=== PATIENT | male | born 1925 | race Caucasian/White ===

== ENCOUNTER 2016-06-07 10:05 | Emergency (ER) | payer OTHER ==
[~2016-06-07] VITALS: Ht 165.1 cm; Wt 50.3 kg
[~2016-06-07 10:05] MED LIST: ASPEC81 PO; CZR50 PO; FLM4 PO; GLCSR500 PO; INSDGI SC; LEVO-366 PO; MCR5 PO; METO50TA7 PO; OMEP40CA PO; ONDA8TAB6 PO
[2016-06-07 10:21] VITALS: TEMP 36.4; Ht 165.1 cm; Wt 50.3 kg
--- NOTE | 2016-06-07 11:13 | DIAGNOSTIC IMAGING REPORT ---
TWO VIEW CHEST CLINICAL HISTORY: Cough and rhonchi. FINDINGS: PA and lateral chest radiographs are compared to study dated 05/18/2010 and correlated with abdominal CT dated 05/18/2010. The heart is top normal in size. There is atherosclerotic calcification of the thoracic aorta. Changes of chronic interstitial lung disease have significantly progressed as compared to 05/18/2010 examination. There is diffuse subpleural reticulation as well as subpleural opacities. Foci of honeycombing are suspected in the lower lobes. Superimposed emphysema is suspected. More focal airspace consolidation is questioned at the left lung base. A small left pleural effusion is identified. There is no pneumothorax. The skeletal structures are osteopenic. The bony thorax appears intact. IMPRESSION: 1. Progressive interstitial lung disease as compared to the05/18/2010 examination and detailed above. There may also be superimposed emphysema. Pulmonology follow-up is recommended. 2. Superimposed airspace consolidation is seen at the left lung base and there is a small left pleural effusion. The appearance is suspicious for pneumonia. Radiographic follow-up to resolution is recommended. Electronically signed by: Isaac Scott M.D. 06/07/2016 11:11 AM Dictated Date/Time: 06/07/2016 11:08 AM
[2016-06-07] MEDS ORDERED: PROAIR HFA PO (11:18)
--- NOTE | 2016-06-07 11:22 | EMERGENCY ROOM VISIT NOTE ---
History Report prepared by Lexi: Luzma Leblanc Under the Supervision of: Dr. Franco Castro D.O. First contact with patient: 10:33 Chief Complaint: COUGH Stated Complaint: COUGH/SOB Nursing Triage Summary: Relates that his phlegm is clear and like "foam". History of Present Illness The patient is an 89 year old male who presents to the Emergency Room with complaints of persistent shortness of breath that began several weeks ago. The patient states that two weeks ago he developed a persistent cough. He states that he had a chest x-ray, but states that it came back normal. The patient states that his cough has improved, but his shortness of breath has persisted. He describes his cough as a productive cough. The patient additionally associates fatigue with his symptoms today. The patient's daughter notes that the patient has complained of right abdominal pain. The patient denies any swelling to his lower extremities. The patient's daughter notes that the patient has had a few cardiac catheterizations, but states that they all have been normal. She denies the patient having any previous NV. Source of History: patient, family (daughter) Onset: several weeks ago Position: other (global) Quality: other (shortness of breath) Timing: other (persistent) Associated Symptoms: + abdominal pain, + cough, + fatigue Review of Systems See HPI for pertinent positives & negatives. A total of 10 systems reviewed and were otherwise negative. Past Medical & Surgical Medical Problems: (1) Diabetes (2) Heart disease Family History Gallbladder disease Social History Smoking Status: Never Smoker Marital Status: Occupation Status: retired Current/Historical Medications Scheduled Aspirin Enteric Coated (Ecotrin Or Generic *), 81 MG PO DAILY Atorvastatin (Lipitor), 10 MG PO Q2D Diltiazem Hcl (Diltiazem Hcl), 180 MG PO DAILY Glipizide (Glucotrol), 5 MG PO BID Insulin Glargine (Lantus), 12 UNITS SC BID Levofloxacin (Levaquin), 1 TAB PO DAILY Levothyroxine Sodium (Synthroid), 50 MCG PO QAM Metformin Hcl Ext Rel (Glucophage Ext Rel *), 1,000 MG PO BID Mirtazapine (Mirtazapine), 30 MG PO HS Multivitamin (Multivitamin), 1 TAB PO DAILY Tamsulosin Hcl (Flomax *), 0.4 MG PO DAILY Scheduled PRN [Proair Hfa], 2 PUFF PO Q4 PRN for SOB/Wheezing Allergies Coded Allergies: No Known Allergies (Unverified , 06/07/16) Physical Exam Vital Signs Date Time Temp Pulse Resp B/P Pulse Ox O2 Delivery O2 Flow Rate FiO2 06/07/16 10:33 107 06/07/16 10:31 Room Air 06/07/16 10:21 36.4 101 24 120/71 96 Room Air Physical Exam CONSTITUTIONAL/VITAL SIGNS: Reviewed / noted above. GENERAL: Non-toxic in appearance. INTEGUMENTARY: Warm, dry, and [place]. HEAD: Normocephalic. EYES: without scleral icterus or trauma. ENT/OROPHARYNX: clear and moist. LYMPHADENOPATHY/NECK: Is supple without lymphadenopathy or meningismus. RESPIRATORY: Right lower lung reveals rhonchi, no increased work of breathing or respiratory distress. CARDIOVASCULAR: Regular rate and rhythm. GI/ABDOMEN: Soft and nontender. No organomegaly or pulsatile mass. No rebound or guarding. Normal bowel sounds. EXTREMITIES: Warm and well perfused. BACK: No CVA tenderness. NEUROLOGICAL: Intact without focal deficits. PSYCHIATRIC: normal affect. MUSCULOSKELETAL: Normally developed with good muscle tone. Medical Decision & Procedures ER Provider Diagnostic Interpretation: X ray results and stated below per my interpretation and radiology interpretation. TWO VIEW CHEST CLINICAL HISTORY: Cough and rhonchi. FINDINGS: PA and lateral chest radiographs are compared to study dated 05/18/2010 and correlated with abdominal CT dated 05/18/2010. The heart is top normal in size. There is atherosclerotic calcification of the thoracic aorta. Changes of chronic interstitial lung disease have significantly progressed as compared to 05/18/2010 examination. There is diffuse subpleural reticulation as well as subpleural opacities. Foci of honeycombing are suspected in the lower lobes. Superimposed emphysema is suspected. More focal airspace consolidation is questioned at the left lung base. A small left pleural effusion is identified. There is no pneumothorax. The skeletal structures are osteopenic. The bony thorax appears intact. IMPRESSION: 1. Progressive interstitial lung disease as compared to the05/18/2010 examination and detailed above. There may also be superimposed emphysema. Pulmonology follow-up is recommended. 2. Superimposed airspace consolidation is seen at the left lung base and there is a small left pleural effusion. The appearance is suspicious for pneumonia. Radiographic follow-up to resolution is recommended. Electronically signed by: Isaac Scott M.D. 06/07/2016 11:11 AM Dictated Date/Time: 06/07/2016 11:08 AM ECG Indication: SOB/dyspnea Rate (beats per minute): 112 Rhythm: sinus tachycardia Findings: PAC, no acute ischemic change ED Course 1033: Previous medical records were reviewed. The patient was evaluated in room A9B. A complete history and physical examination was performed. 1126: Ordered Levofloxacin 500 mg PO. 1133: I reevaluated the patient and he is resting comfortably. I discussed the exam findings with him and I discussed the treatment plan. He verbalized complete understanding and agreement. He is ready to go home. Medical Decision the differential was considered includes acute myocardial infarction, acute coronary syndrome, myocarditis, pericarditis, pericardial effusions /tamponad, esophageal perforation, pulmonary embolism, pneumonia, pneumothorax, cardiomyopathy, congestive heart, anemia , COPD/asthma exacerbation. This is an 89-year-old male who presents to the ED with a chief complaint of a cough. The patient has also developed some shortness of breath. He states that he has been coughing for at least a week. He was told that he had a normal chest x-ray last week. He also reports some fatigue. His coughing seemed to be better today but he is brought in for evaluation of his fatigue and shortness of breath. He is in no respiratory distress on clinical exam. He has no increased work of breathing. His vital signs are stable. He is afebrile and not hypoxic. Exam reveals rhonchi in the right base slightly worse than left. Chest x-ray suggests a possible pneumonia. The patient was started on Levaquin. He was felt to be stable for discharge. Impression Primary Impression: Pneumonia Scribe Attestation The scribe's documentation has been prepared under my direction and personally reviewed by me in its entirety. I confirm that the note above accurately reflects all work, treatment, procedures, and medical decision making performed by me. Departure Information Dispostion Home / Self-Care Prescriptions Levofloxacin (LEVAQUIN) 500 Mg Tab 1 TAB PO DAILY for 10 Days, #10 TAB Prov: Franco Castro D.O. 06/07/16 Referrals Duarte Hannah M.D. (PCP) Forms HOME CARE DOCUMENTATION FORM, IMPORTANT VISIT INFORMATION Patient Instructions ED Pneumonia, [facility] Additional Instructions Levaquin as prescribed. Follow-up with your doctor for further care and evaluation in 1-7 days. Return to the emergency department for worsening or new symptoms or any concerns. You have been examined and treated today on an emergency basis only. This is not a substitute for, or an effort to provide, complete comprehensive medical care. It is impossible to recognize and treat all injuries or illnesses in a single emergency department visit. It is therefore important that you follow up closely with your doctor. Call as soon as possible for an appointment.
[2016-06-07] MEDS ORDERED: LEVOFLOXACIN 250 MG TAB PO STA (11:26)
[2016-06-07] MEDS ORDERED: LEVO1TAB34 PO (11:30)
[2016-06-07 12:08] VITALS: BP 134/69; PULSE 96; O2SAT 100
[2016-08-18] MEDS ORDERED: NVLGI/PEN SC (12:38)
[2016-08-18] MEDS ORDERED: INSDGIPEN SC (12:38)
[2016-08-18] MEDS ORDERED: LOSA1TAB PO (12:38)
[2016-08-18] MEDS ORDERED: PRED10TA PO (12:38)
[2016-08-18] MEDS ORDERED: PRLSR20 PO (12:59)
[2016-08-18] MEDS ORDERED: BENZ100C7 PO (13:01)
[2016-09-17] MEDS ORDERED: MULT-506 PO (08:32)
[2016-09-17] MEDS ORDERED: ATOR10TA88 PO (08:32)
[2016-09-17] MEDS ORDERED: SYN50 PO (11:18)
[2016-09-17] MEDS ORDERED: GLIP5TAB3 PO (11:18)
[2016-09-17] MEDS ORDERED: RMR15 PO (11:18)
[2016-09-17] MEDS ORDERED: DILT180C70 PO (11:19)
[2016-09-17] MEDS ORDERED: TAMS0.4C38 PO (11:33)
[2016-09-17] MEDS ORDERED: METF1TAB53 PO (11:33)
[2016-09-17] MEDS ORDERED: ASPI81TA28 PO (11:33)
[2016-09-20] MEDS ORDERED: INSDGIPEN SC (10:50)
[2016-09-20] MEDS ORDERED: NVLGIPEN INJ (10:50)
== END 2016-06-07 12:17 | disposition home or self-care (01) ==
LOC: C.EDB 10:06 → C.EDA 12:17
DX: J18.9 Pneumonia, unspecified organism (principal); E11.9 Type 2 diabetes mellitus without complications; I51.9 Heart disease, unspecified; Z79.82 Long term (current) use of aspirin; Z79.4 Long term (current) use of insulin; Z79.899 Other long term (current) drug therapy; Z82.49 Family history of ischemic heart disease and other diseases of the circulatory system

== ENCOUNTER 2016-08-13 10:53 | Inpatient (IN) | payer OTHER ==
[~2016-08-13] VITALS: Ht 165.1 cm; Wt 46.4 kg
[~2016-08-13 10:53] MED LIST changes: -CZR50 PO; -LEVO-366 PO; -MCR5 PO; -METO50TA7 PO; -OMEP40CA PO; -ONDA8TAB6 PO; +PROAIR HFA PO
[2016-08-13] MEDS ORDERED: INSDGIPEN SC (11:33)
--- NOTE | 2016-08-13 11:36 | DIAGNOSTIC IMAGING REPORT ---
CHEST ONE VIEW PORTABLE CLINICAL HISTORY: Shortness of breath. COMPARISON STUDY: Chest radiograph June 07, 2016. FINDINGS: No pneumothorax or pleural effusion is present. There is diffuse interstitial thickening. This is either stable or improved since exam of June 07, 2016. No superimposed consolidation is identified. Cardiomediastinal silhouette is normal. Prominent reticulonodular interstitial thickening within the left upper lobe is noted. IMPRESSION: Diffuse interstitial thickening, as shown on exam of June 07, 2016. This is consistent with interstitial lung disease and suggests pulmonary fibrosis with suspected honeycombing. Electronically signed by: Dayton Zavala M.D. 08/13/2016 11:35 AM Dictated Date/Time: 08/13/2016 11:31 AM
[2016-08-13 11:38] LABS: HEMATOCRIT 34.5 % (42-52); MEAN CELL VOLUME 90.1 fL (80-100); MEAN CORPUSCULAR HEMOGLOBIN 30.8 pg (25-34); MEAN CORPUSCULAR HGB CONC 34.2 g/dl (32-36); PLATELET COUNT 150 K/uL (130-400); RED BLOOD COUNT 3.83 M/uL (4.7-6.1); WHITE BLOOD COUNT 6.46 K/uL (4.8-10.8)
[2016-08-13 11:38] LABS: ISTAT CREATININE 1.3 mg/dl (0.6-1.3); ISTAT HEMOGLOBIN 12.2 g/dl (14.0-18.0); ISTAT IONIZED CALCIUM 1.12 mmol/l (1.12-1.32)
[2016-08-13] MEDS ORDERED: OPTIRAY 320 IV PRN (11:45)
[2016-08-13 11:55] LABS: COMPLETE YES; IG% 0.3 %; LYMPH % 8.2 %; LYMPH ABS # 0.53 K/uL (1.2-3.4); MONO % 6.8 %; NEUT % 84.7 %
[2016-08-13 11:57] LABS: BUN/CREATININE RATIO 15.9 (10-20); CALCIUM 8.8 mg/dl (8.5-10.1); CREATININE 1.5 mg/dl (0.60-1.40); POTASSIUM 4.5 mmol/L (3.5-5.1)
[2016-08-13 12:02] LABS: INR 1.1 (0.9-1.1); PARTIAL THROMBOPLASTIN RATIO 1.2; PROTHROMBIN TIME (PATIENT) 11.3 SECONDS (9.0-12.0)
--- NOTE | 2016-08-13 12:04 | DIAGNOSTIC IMAGING REPORT ---
CHEST CTA for PULMONARY ARTERIES CT DOSE: 232.46 mGycm HISTORY: Chest pain dyspnea TECHNIQUE: Multiaxial CT images of the chest were performed following the intravenous administration of contrast to evaluate the pulmonary arteries. Maximal intensity projection images were also obtained. COMPARISON STUDY: None. FINDINGS: Diffuse parenchymal fibrotic change throughout both hemithoraces. Underlying considerable emphysematous and bronchiectatic change. Lungs are noted throughout both hemithoraces. Evaluation of the pulmonary vasculature is problematic due to patient motion. There is no evidence for major central embolus. Moderate atherosclerotic change again change and ectasia thoracic aorta. Third order vessels are not well evaluated on this exam. IMPRESSION: 1. Limited study due to patient restaurant somatic motion. 2. Diffuse parenchymal fibrosis and interstitial change with underlying Baseline emphysematous change. 3. No evidence for major central embolus. 4. Nondiagnostic evaluation of the third order pulmonary arterial vessels Electronically signed by: Bassam Diaz M.D. 08/13/2016 12:03 PM Dictated Date/Time: 08/13/2016 12:00 PM
[2016-08-13] MEDS ORDERED: ONDANSETRON INJ 2 MG/ML 2 ML VIAL IV PRN (13:45)
[2016-08-13] MEDS ORDERED: ACETAMINOPHEN 325 MG TAB PO PRN (13:45)
[2016-08-13 13:58] VITALS: BP 116/69; PULSE 93; TEMP 37.2; O2SAT 98; BMI 17.6
[2016-08-13] MEDS ORDERED: GLUCOSE 10 TABS/TUBE PO PRN (14:00)
[2016-08-13] MEDS ORDERED: LEVALBUTEROL/IPRATROPIUM NEB INH PRN (14:00)
[2016-08-13] MEDS ORDERED: LOSA1TAB38 PO (14:00)
[2016-08-13] MEDS ORDERED: GLUCOSE 40% GEL 15 GM TUBE PO PRN (14:00)
[2016-08-13] MEDS ORDERED: DEXTROSE 50% 50 ML SYR IV PRN (14:00)
[2016-08-13] MEDS ORDERED: GLUCAGON FOR INJ 1 MG VIAL SQ PRN (14:00)
--- NOTE | 2016-08-13 14:09 | Progress Note ---
Progress Note Date of Service Aug 13, 2016. Progress Note ATTENDING ADDENDUM care coordinated with VALENTINA David please refer to her notes for full details, I agree with her notes patient seen and examined, records reviewed by myself as well on exam, patient seen resting laying in bed, comfortable, smiling states he feels improved compared to when he arrived reports ~ 1 week history of worsening shortness of breath, cough with white sputum and chills worsening anorexia also has palpitations at home with no chest pain, dizziness, nausea, diaphoresis no other symptoms VS noted and reviewed oriented x 3 , not in distress, speaks in sentences with no effort nor accessory muscle use normal rate, regular rhythm, no murmurs (+) mild crackles at the bases, no wheezing, good air entry non distended, soft, nontender no bipedal edema, erythema, warmth no neuro deficits WBC 6.4 Na 130 Crea 1.5 ASSESSMENT/PLAN> 89 year old male with history of Interstitial Lung Disease, [place] Exposure, history of CAD and Paroxysmal A fib, DM on Insulin, and other problems noted below presenting with increasing shortness of breath and cough x 1 week. ACUTE HYPOXIC RESPIRATORY FAILURE POSSIBLE ACUTE BRONCHITIS HISTORY OF INTERSTITIAL LUNG DISEASE - usually follows with [facility] last visit 08/06/16, CXR showing progression of ILD - worsening dyspnea with minimal exertion and cough over the past week - noted to be hypoxic at the ER, 86% on room air improved with 2 L O2 on nasal cannula - no wheeze on exam - CT chest: ILD possible Pulmonary Fibrosis, Emphysema no signs of pneumonia, fluid - check baseline ABG Nebs q6h empiric Doxycycline Pulmonary consult HYPONATREMIA likely Hypovolemic from Poor oral intake may have SIADH component as well from underlying respiratory condition - baseline Na 140 - check Plasma Osm, Urine Na - appears clinically dry - IV NSS at 75cc/hr - PRP every 4 hours other diagnoses and plan of care as per VALENTINA David's notes Preston Patel MD
--- NOTE | 2016-08-13 14:41 | History and Physical ---
History & Physical Date & Time of Service: Aug 13, 2016 at 14:06 Chief Complaint: Weak, Cough, Not Eating Primary Care Physician: Duarte Hannah M.D. History of Present Illness Source: patient, family (son and daughter in law at bedside), clinic records This is an 89 year old male with PMH of interstitial lung disease, paroxysmal Afib, CAD, HTN, DM type 2, and other problems listed below who presents to the ED with increasing SOB. Patient was treated as outpatient for LLL PNA with Levaquin in May 2016 and was feeling back to baseline. Repeat CXR as outpatient on 08/06/16 showed ILD progressive from 2011. Then 3 days ago developed worsening of cough and dyspnea from baseline. Dyspnea occurs with minimal exertion i.e. getting dressed. At baseline was [place] ambulating across the room. No dyspnea at rest. Cough is productive of thick clear sputum. He reports associated chills, rhinorrhea, lightheadedness with standing, generalized weakness. Ambulates unassisted. He reports posttussive vomiting x 1 a few days ago. Eating minimal food due to poor appetite for 1+ years. Has lost weight. Trying to drink a lot of water. He denies fever, sweats, orthopnea, chest pain, palpitations, syncope, abdominal pain, diarrhea, dysuria, frequency , rash, myalgias, calf pain, edema. No specific sick contact but has visited in prison. No recent hospitalization. Patient follows with [facility] for pulmonology. Denies hx of VTE. Past Medical/Surgical History Medical Problems: (1) BPH (benign prostatic hypertrophy) Status: Chronic (2) DM type 2 (diabetes mellitus, type 2) Status: Chronic (3) Dyslipidemia Status: Chronic (4) History of depression Status: Chronic (5) HTN (hypertension) Status: Chronic (6) Paroxysmal atrial fibrillation Status: Chronic Surgical Problems: (1) H/O inguinal hernia repair Status: Chronic Family History Gallbladder disease Social History Smoking Status: Never Smoker Alcohol Use: none Drug Use: none Housing status: lives alone Occupational Status: retired Immunizations History of Influenza Vaccine: Yes History of Tetanus Vaccine?: No History of Pneumococcal: Yes History of Hepatitis B Vaccine: No Allergies Coded Allergies: No Known Allergies (Unverified , 06/07/16) Home Medications Scheduled Aspirin (Aspirin Ec), 81 MG PO DAILY Atorvastatin (Lipitor), 10 MG PO Q2D Diltiazem Hcl (Diltiazem Hcl), 180 MG PO DAILY Fluticasone Propionate (Nasal) (Flonase Allergy Relief), 2 SPRAYS SUNIL HS Glipizide (Glucotrol), 5 MG PO BID Insulin Glargine (Lantus Solostar), 6 UNITS SC BID Levothyroxine Sodium (Synthroid), 50 MCG PO QAM Losartan Potassium (Cozaar), 100 MG PO DAILY Metformin Hcl (Glucophage Ext Rel), 1,000 MG PO BID Mirtazapine (Mirtazapine), 30 MG PO HS Mometasone Furoate-Formoterol (Dulera 100/5 Mcg), 2 PUFFS INH BID Multivitamin (Multivitamin), 1 TAB PO DAILY Tamsulosin Hcl (Flomax), 0.4 MG PO QPM Scheduled PRN [Proair Hfa], 2 PUFF PO Q4 PRN for SOB/Wheezing Review of Systems Ten point ROS performed with pertinent positives and negatives noted in HPI. Physical Exam Vital Signs Date Time Temp Pulse Resp B/P Pulse Ox O2 Delivery O2 Flow Rate FiO2 08/13/16 12:15 93 18 116/69 98 Room Air 08/13/16 11:34 112 08/13/16 11:09 Nasal Cannula 2.0 08/13/16 11:05 Nasal Cannula 2.0 08/13/16 10:57 37.2 102 22 97/53 86 Room Air General Appearance: + thin, + pertinent finding (very pleasant alert 89 year old male, not in distress, son and daughter in law at bedside) Head: normocephalic, atraumatic Eyes: normal inspection, PERRL, sclerae normal ENT: hearing grossly normal, TMs normal, pharynx normal, + pertinent finding ( dry oral mucosa) Neck: supple, no JVD, trachea midline Respiratory/Chest: no respiratory distress, no accessory muscle use, + crackles (right mid lung and right base), + pertinent finding (no wheezing) Cardiovascular: regular rate, rhythm, no murmur Abdomen/GI: normal bowel sounds, non tender, soft Extremities/Musculoskelatal: no calf tenderness, normal capillary refill, no pedal edema Neurologic/Psych: alert, normal mood/affect, oriented x 3, + pertinent finding (grossly nonfocal. no facial droop. speech is clear. strength 5/5 all extremities.) Skin: normal color, warm/dry Diagnostics Laboratory Results Results Past 24 Hours Test 08/13/16 11:20 08/13/16 11:25 08/13/16 13:44 08/13/16 13:55 Range/Units White Blood Count 6.46 4.8-10.8 K/uL Red Blood Count 3.83 4.7-6.1 M/uL Hemoglobin 11.8 14.0-18.0 g/dL Hematocrit 34.5 42-52 % Mean Corpuscular Volume 90.1 80-100 fL Mean Corpuscular Hemoglobin 30.8 25-34 pg Mean Corpuscular Hemoglobin Concent 34.2 32-36 g/dl Platelet Count 150 130-400 K/uL Mean Platelet Volume 9.0 7.4-10.4 fL Neutrophils (%) (Auto) 84.7 % Lymphocytes (%) (Auto) 8.2 % Monocytes (%) (Auto) 6.8 % Eosinophils (%) (Auto) 0.0 % Basophils (%) (Auto) 0.0 % Neutrophils # (Auto) 5.47 1.4-6.5 K/uL Lymphocytes # (Auto) 0.53 1.2-3.4 K/uL Monocytes # (Auto) 0.44 0.11-0.59 K/uL Eosinophils # (Auto) 0.00 0-0.5 K/uL Basophils # (Auto) 0.00 0-0.2 K/uL RDW Standard Deviation 47.2 36.4-46.3 fL RDW Coefficient of Variation 14.2 11.5-14.5 % Immature Granulocyte % (Auto) 0.3 % Immature Granulocyte # (Auto) 0.02 0.00-0.02 K/uL Prothrombin Time 11.3 9.0-12.0 SECONDS Prothromb Time International Ratio 1.1 0.9-1.1 Activated Partial Thromboplast Time 31.6 21.0-31.0 SECONDS Partial Thromboplastin Ratio 1.2 Sodium Level 131 136-145 mmol/L Potassium Level 4.5 3.5-5.1 mmol/L Chloride Level 94 98-107 mmol/L Carbon Dioxide Level 29 21-32 mmol/L Anion Gap 8.0 18.0 16-25 mmol/L Blood Urea Nitrogen 24 7-18 mg/dl Creatinine 1.50 0.60-1.40 mg/dl Est Creatinine Clear Calc Drug Dose 22.6 ml/min Estimated GFR () 47.2 Estimated GFR (Non- 40.7 BUN/Creatinine Ratio 15.9 10-20 Random Glucose 86 70-99 mg/dl Calcium Level 8.8 8.5-10.1 mg/dl Troponin I < 0.015 0-0.045 ng/ml Bedside Hemoglobin 12.2 14.0-18.0 g/dl Bedside Hematocrit 36 42-52 % Bedside Sodium 130 135-144 mEq/L Bedside Potassium 4.5 3.3-5.0 mEq/L Bedside Chloride 92 101-112 mEq/L Bedside Total CO2 27 24-31 mEq/l Bedside Blood Urea Nitrogen 24 7-18 mg/dl Bedside Creatinine 1.3 0.6-1.3 mg/dl Bedside Glucose (other) 90 70-99 mg/dl Bedside Ionized Calcium (Amisha) 1.12 1.12-1.32 mmol/l Test 08/13/16 13:57 Range/Units Diagnostic Radiology CHEST ONE VIEW PORTABLE CLINICAL HISTORY: Shortness of breath. COMPARISON STUDY: Chest radiograph June 07, 2016. FINDINGS: No pneumothorax or pleural effusion is present. There is diffuse interstitial thickening. This is either stable or improved since exam of June 07, 2016. No superimposed consolidation is identified. Cardiomediastinal silhouette is normal. Prominent reticulonodular interstitial thickening within the left upper lobe is noted. IMPRESSION: Diffuse interstitial thickening, as shown on exam of June 07, 2016. This is consistent with interstitial lung disease and suggests pulmonary fibrosis with suspected honeycombing. CHEST CTA for PULMONARY ARTERIES CT DOSE: 232.46 mGycm HISTORY: Chest pain dyspnea TECHNIQUE: Multiaxial CT images of the chest were performed following the intravenous administration of contrast to evaluate the pulmonary arteries. Maximal intensity projection images were also obtained. COMPARISON STUDY: None. FINDINGS: Diffuse parenchymal fibrotic change throughout both hemithoraces. Underlying considerable emphysematous and bronchiectatic change. Lungs are noted throughout both hemithoraces. Evaluation of the pulmonary vasculature is problematic due to patient motion. There is no evidence for major central embolus. Moderate atherosclerotic change again change and ectasia thoracic aorta. Third order vessels are not well evaluated on this exam. IMPRESSION: 1. Limited study due to patient restaurant somatic motion. 2. Diffuse parenchymal fibrosis and interstitial change with underlying Baseline emphysematous change. 3. No evidence for major central embolus. 4. Nondiagnostic evaluation of the third order pulmonary arterial vessels EKG Initial EKG- sinus tachycardia with PACs, mild ST depression in V3-V6 Repeat EKG- sinus tachycardia with PACs, with resolution of ST depression Impression Assessment and Plan ACUTE ON CHRONIC RESPIRATORY FAILURE Possibly due to acute bronchitis in setting of interstitial lung disease/ pulmonary fibrosis Was hypoxic to 86% on RA; not on home O2 CXR- findings of interstitial lung disease with pulmonary fibrosis, no infiltrate CTA chest- limited due to motion, diffuse fibrosis and interstitial change, baseline emphysema, no evidence for major central PE, nondiagnostic of third order pulmonary arterial vessels Check influenza PCR, sputum culture, baseline ABG, echo Start empiric doxycycline, Xopenex-Atrovent nebs Continue Dulera Supplemental O2 per protocol Consult pulmonology HYPONATREMIA Likely hypovolemic hyponatremia from poor PO intake Check serum and urine osmolality Monitor PRP q4h Gentle IV NSS at 75 cc/hour FAWAD Creat increased to 1.5 from baseline 1.2-1.3 Likely from dehydration Hold losartan Gentle IVF's Monitor renal function NONSPECIFIC EKG CHANGES History of CAD; prior echo 11/2015- EF 55%, mild-mod mitral and aortic insufficiency, mild tricuspid and pulmonic insufficiency, dilated aortic root 4.[address] depressions in V3-V6 resolved on repeat EKG Initial troponin negative Trend serial cardiac enzymes Check echo Monitor in telemetry Continue aspirin and statin Follows with Dr. 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 Has a living will. DISPOSITION Lives alone Consult social service, PT, OT Discussed with son Armando Stern at bedside; states he wishes to be updated by phone (home: [phone]; cell: [phone]) Patient seen in collaboration with Dr. Patel. Please see his addendum. VTE Prophylaxis VTE Risk Assessment Done? Y/N: Yes Risk Level: Moderate
[2016-08-13 14:46] LABS: ARTERIAL BLD GAS O2 SATURATION 99.1 % (90-95); ARTERIAL BLOOD GAS BASE EXCESS 1.7 mEq/L (-9-1.8); ARTERIAL BLOOD GAS HCO3 26 mmol/L (19-24); ARTERIAL BLOOD GAS PO2 154 mm/Hg (80-95); ARTERIAL BLOOD GAS pH 7.41 (7.35-7.45)
[2016-08-13 14:47] LABS: ALLEN TEST POS (POS); O2 ADMINISTRATION 2L
[2016-08-13] MEDS ORDERED: LEVALBUTEROL/IPRATROPIUM NEB INH SCH (15:00)
[2016-08-13] MEDS ORDERED: LEVALBUTEROL 0.63MG/3 ML NEB INH PRN (15:15)
[2016-08-13] MEDS ORDERED: IPRATROPIUM BROMIDE NEB SOLN 0.02% 2.5 ML VIAL INH PRN (15:15)
--- NOTE | 2016-08-13 15:17 | EMERGENCY ROOM VISIT NOTE ---
History Report prepared by Lexi: Linda Escamilla Under the Supervision of: Dr. Noble Mejia M.D. First contact with patient: 11:06 Chief Complaint: WEAKNESS Stated Complaint: WEAK, COUGH, NOT EATING Nursing Triage Summary: pt reports feeling weak has sob and nonproductive cough.sx started friday History of Present Illness The patient is a 89 year old male who presents to the Emergency Room with complaints of persistent weakness starting 3 days ago. He has been coughing and having SOB. Sometimes his coughing leads to vomiting. He has no appetite. He has been eating small portions of food and not full meals. He also has been experiencing a rapid heartbeat for over 1 month. He states that he cannot feel his heart racing, but upon measurement his pulse was around 120 and has been as high as 133 at times. He went to the pulmonary doctor last week who found fluid in his right lung. They believed it might be contributing to his rapid heartbeat so he made an appointment with cardiology for next week. They presented to the ED today after his weakness persisted. He denies any chest pain , fever, or abdominal pain. He is regularly not on oxygen. He has not had any PEs or DVT before. He denies any history of kidney problems. Source of History: patient Onset: 2 days ago Position: other (global) Quality: other (weakness) Timing: other (persistent) Associated Symptoms: + SOB, + cough, + vomiting, No abdominal pain, No chest pain, No fevers Note: Pt reports low appetite and fast heart rate. Review of Systems See HPI for pertinent positives & negatives. A total of 10 systems reviewed and were otherwise negative. Past Medical & Surgical Medical Problems: (1) BPH (benign prostatic hypertrophy) (2) CAD (coronary artery disease) (3) DM type 2 (diabetes mellitus, type 2) (4) Dyslipidemia (5) History of depression (6) HTN (hypertension) (7) Hypoxia (8) Paroxysmal atrial fibrillation (9) SOB (shortness of breath) Surgical Problems: (1) H/O inguinal hernia repair Family History Gallbladder disease Social History Smoking Status: Never Smoker Marital Status: Occupation Status: retired Current/Historical Medications Scheduled Aspirin (Aspirin Ec), 81 MG PO DAILY Atorvastatin (Lipitor), 10 MG PO Q2D Diltiazem Hcl (Diltiazem Hcl), 180 MG PO DAILY Fluticasone Propionate (Nasal) (Flonase Allergy Relief), 2 SPRAYS SUNIL HS Glipizide (Glucotrol), 5 MG PO BID Insulin Glargine (Lantus Solostar), 6 UNITS SC BID Levothyroxine Sodium (Synthroid), 50 MCG PO QAM Losartan Potassium (Cozaar), 100 MG PO DAILY Metformin Hcl (Glucophage Ext Rel), 1,000 MG PO BID Mirtazapine (Mirtazapine), 30 MG PO HS Mometasone Furoate-Formoterol (Dulera 100/5 Mcg), 2 PUFFS INH BID Multivitamin (Multivitamin), 1 TAB PO DAILY Tamsulosin Hcl (Flomax), 0.4 MG PO QPM Scheduled PRN [Proair Hfa], 2 PUFF PO Q4 PRN for SOB/Wheezing Allergies Coded Allergies: No Known Allergies (Unverified , 06/07/16) Physical Exam Vital Signs Date Time Temp Pulse Resp B/P Pulse Ox O2 Delivery O2 Flow Rate FiO2 08/13/16 12:15 93 18 116/69 98 Room Air 08/13/16 11:34 112 08/13/16 11:09 Nasal Cannula 2.0 08/13/16 11:05 Nasal Cannula 2.0 08/13/16 10:57 37.2 102 22 97/53 86 Room Air Physical Exam Constitutional: Vital signs reviewed. Eyes: Pupils are equal round reactive to light. Conjunctiva are noninjected. ENT: Pharynx is clear without erythema or exudate. Mucous membranes are moist. Neck supple without meningeal signs. Respiratory: Clear to auscultation bilaterally. Breath sounds are equal bilaterally. Cardiovascular: Tachycardic rate of 120. Regular rhythm. No rubs or gallops. GI: Soft, nondistended and nontender. Bowel sounds are present. Musculoskeletal: No peripheral edema. No lower extremity tenderness. Integumentary: No cyanosis. Neurological: The patient is awake and alert. No focal deficits. Psychiatric: Normal affect. Medical Decision & Procedures ER Provider Diagnostic Interpretation: X-ray results as stated below per interpretation by me and the radiologist. Radiology results as stated below per my review and the radiologist's interpretation: CHEST ONE VIEW PORTABLE CLINICAL HISTORY: Shortness of breath. COMPARISON STUDY: Chest radiograph June 07, 2016. FINDINGS: No pneumothorax or pleural effusion is present. There is diffuse interstitial thickening. This is either stable or improved since exam of June 07, 2016. No superimposed consolidation is identified. Cardiomediastinal silhouette is normal. Prominent reticulonodular interstitial thickening within the left upper lobe is noted. IMPRESSION: Diffuse interstitial thickening, as shown on exam of June 07, 2016. This is consistent with interstitial lung disease and suggests pulmonary fibrosis with suspected honeycombing. Electronically signed by: Dayton Zavala M.D. 08/13/2016 11:35 AM Dictated Date/Time: 08/13/2016 11:31 AM CHEST CTA for PULMONARY ARTERIES CT DOSE: 232.46 mGycm HISTORY: Chest pain dyspnea TECHNIQUE: Multiaxial CT images of the chest were performed following the intravenous administration of contrast to evaluate the pulmonary arteries. Maximal intensity projection images were also obtained. COMPARISON STUDY: None. FINDINGS: Diffuse parenchymal fibrotic change throughout both hemithoraces. Underlying considerable emphysematous and bronchiectatic change. Lungs are noted throughout both hemithoraces. Evaluation of the pulmonary vasculature is problematic due to patient motion. There is no evidence for major central embolus. Moderate atherosclerotic change again change and ectasia thoracic aorta. Third order vessels are not well evaluated on this exam. IMPRESSION: 1. Limited study due to patient restaurant somatic motion. 2. Diffuse parenchymal fibrosis and interstitial change with underlying Baseline emphysematous change. 3. No evidence for major central embolus. 4. Nondiagnostic evaluation of the third order pulmonary arterial vessels Electronically signed by: Bassam Diaz M.D. 08/13/2016 12:03 PM Dictated Date/Time: 08/13/2016 12:00 PM Laboratory Results 08/13/16 11:20 Red Blood Count 3.83, Mean Corpuscular Volume 90.1, Mean Corpuscular Hemoglobin 30.8, Mean Corpuscular Hemoglobin Concent 34.2, Mean Platelet Volume 9.0, Neutrophils (%) (Auto) 84.7, Lymphocytes (%) (Auto) 8.2, Monocytes (%) (Auto) 6.8, Eosinophils (%) (Auto) 0.0, Basophils (%) (Auto) 0.0, Neutrophils # (Auto) 5.47, Lymphocytes # (Auto) 0.53, Monocytes # (Auto) 0.44, Eosinophils # (Auto) 0.00, Basophils # (Auto) 0.00 08/13/16 11:20 Test 08/13/16 11:20 08/13/16 11:25 08/13/16 12:05 White Blood Count 6.46 K/uL (4.8-10.8) Red Blood Count 3.83 M/uL (4.7-6.1) Hemoglobin 11.8 g/dL (14.0-18.0) Hematocrit 34.5 % (42-52) Mean Corpuscular Volume 90.1 fL (80-100) Mean Corpuscular Hemoglobin 30.8 pg (25-34) Mean Corpuscular Hemoglobin Concent 34.2 g/dl (32-36) Platelet Count 150 K/uL (130-400) Mean Platelet Volume 9.0 fL (7.4-10.4) Neutrophils (%) (Auto) 84.7 % Lymphocytes (%) (Auto) 8.2 % Monocytes (%) (Auto) 6.8 % Eosinophils (%) (Auto) 0.0 % Basophils (%) (Auto) 0.0 % Neutrophils # (Auto) 5.47 K/uL (1.4-6.5) Lymphocytes # (Auto) 0.53 K/uL (1.2-3.4) Monocytes # (Auto) 0.44 K/uL (0.11-0.59) Eosinophils # (Auto) 0.00 K/uL (0-0.5) Basophils # (Auto) 0.00 K/uL (0-0.2) RDW Standard Deviation 47.2 fL (36.4-46.3) RDW Coefficient of Variation 14.2 % (11.5-14.5) Immature Granulocyte % (Auto) 0.3 % Immature Granulocyte # (Auto) 0.02 K/uL (0.00-0.02) Prothrombin Time 11.3 SECONDS (9.0-12.0) Prothromb Time International Ratio 1.1 (0.9-1.1) Activated Partial Thromboplast Time 31.6 SECONDS (21.0-31.0) Partial Thromboplastin Ratio 1.2 Est Creatinine Clear Calc Drug Dose 22.6 ml/min Estimated GFR () 47.2 Estimated GFR (Non- 40.7 BUN/Creatinine Ratio 15.9 (10-20) Calcium Level 8.8 mg/dl (8.5-10.1) Troponin I < 0.015 ng/ml (0-0.045) Bedside Hemoglobin 12.2 g/dl (14.0-18.0) Bedside Hematocrit 36 % (42-52) Bedside Sodium 130 mEq/L (135-144) Bedside Potassium 4.5 mEq/L (3.3-5.0) Bedside Chloride 92 mEq/L (101-112) Bedside Total CO2 27 mEq/l (24-31) Anion Gap 18.0 mmol/L (16-25) Bedside Blood Urea Nitrogen 24 mg/dl (7-18) Bedside Creatinine 1.3 mg/dl (0.6-1.3) Bedside Glucose (other) 90 mg/dl (70-99) Bedside Ionized Calcium (Amisha) 1.12 mmol/l (1.12-1.32) Laboratory results as reviewed by me. ECG Indication: weakness Rate (beats per minute): 124 Rhythm: sinus tachycardia Findings: PAC, other (slight ST depression in leads V3 to V6) Change: Posterior EKG: Sinus tachycardia, rate of 110, PAC, no ST elevations. ED Course 1108: The patient was evaluated in room C9. A complete history and physical exam was performed. 1235: I reevaluated the patient. He is resting comfortably. I discussed the results and treatment plan with him. He verbalized understanding and agreement. The patient will be evaluated for further management. 1240: I discussed the patient's case with Pamela David PA-C [facility] hospitalist group. The patient will be evaluated for further management. Medical Decision This is an 89-year-old male presents with generalized weakness, shortness breath and tachycardia. Differential diagnosis includes pulmonary embolism, DVT , pneumonia, bronchitis, cardiac, anemia. I did perform a limited focused review of portions of the patient's old chart on the electronic medical record. The patient was here on June 07 for cough and SOB. He had pneumonia which was treated with Levaquin. I did evaluate the patient as noted above. IV access was established. The patient was placed on a continuous ekg monitor tech. The patient is hypoxemic here. He was given supplemental oxygen. I did order and personally review the patient's 12-lead EKG and chest x-ray as described above. He does have some ST depressions laterally. He denies having any chest discomfort. I did order and review the patient's blood work as noted in the electronic medical record. I did order a CT of the chest. I did review the images myself as well as the radiology report as described above. This was somewhat compromised but there is no evidence of pulmonary embolism. I did discuss the test results with the patient and his family. I did recommend hospitalization for further evaluation. I did discuss the case with the hospitalist and case preparer and liner. Consults Time Called: 1235 Consulting Physician: PAULETTE Laguerre hospitalist group Returned Call: 1240 I discussed the patient's case with her. The patient will be evaluated for further management. Impression Primary Impression: Hypoxia Additional Impressions: Abnormal EKG Anemia, unspecified Scribe Attestation The scribe's documentation has been prepared under my direct and personally reviewed by me in its entirety. I confirm that the note above accurately reflects all work, treatment, procedures, and medical decision making performed by me. Departure Information Dispostion Being Evaluated By Hospitalist Referrals Duarte Hannah M.D. (PCP) Patient Instructions My [facility] Problem Qualifiers
[2016-08-13] MEDS ORDERED: DOXYCYCLINE HYCLATE 100 MG CAP PO ONE (15:30)
[2016-08-13] MEDS: INSULIN ASPART 100 UNITS/ML 3 ML PEN SC SCH ×2 (16:00→20:19)
[2016-08-13 16:16] VITALS: BP 110/68; PULSE 76; TEMP 36.6; O2SAT 100
[2016-08-13] MEDS: SODIUM CHLORIDE 0.9% 1000ML 1,000 ML IV SCH (16:29)
[2016-08-13 16:52] LABS: BUN/CREATININE RATIO 15.9 (10-20); CALCIUM 8.3 mg/dl (8.5-10.1); CREATININE 1.4 mg/dl (0.60-1.40); POTASSIUM 4.3 mmol/L (3.5-5.1)
[2016-08-13 16:56] LABS: CKMB/CK RATIO 1.3 (0-3.0)
[2016-08-13 18:07] LABS: INFLUENZA B PCR Neg for Influ B (NEG)
[2016-08-13 18:09] LABS: INFLUENZA A PCR POS for Influ A (NEG)
--- NOTE | 2016-08-13 19:17 | PULMONARY CONSULTATION ---
DATE OF CONSULTATION: 08/13/2016 TIME: 5:40 p.m. HISTORY OF PRESENT ILLNESS: The patient was seen in room #230, bed #1. He is a pleasant 89-year-old male who was admitted with cough and shortness of breath. The patient carries a history of pulmonary fibrosis. The patient tells me he has had it for 25 years, but I doubt if it has been that long. There has been a significant change in his symptoms over the past couple of months. Reportedly, he has been feeling very weak for about 3 days. He has been lightheaded. He had an episode 3 days before admission where he had a coughing spell and this led to vomiting. The patient has a chronic cough for many years. It is generally nonproductive. If he brings up anything it is a scant amount of clear phlegm. He has never coughed up blood. The cough does not awaken him at night. He is short of breath with minimal exertion. For instance, if he gets up from his bed and would immediately stand and start walking, he would get short of breath quickly. He states, however, if he sits on the side of the bed for a minute to gather himself, then gets up and walks and goes a little ways and rests then he is okay. Obviously, he has marked limitations. He states he has occasional heartburn, but not that often. He is not on oxygen therapy at home. He denied ever having been on prednisone. Apparently, he has an inhaler at home that he told me was blue. We have listed that he is taking ProAir, which would be red. Perhaps the blue one is Dulera, which he also takes. The patient told me he was taking 1 an inhaler but he actually takes 2 inhalers. The Dulera is the 100/5 dosage. He was treated for an outpatient pneumonia of the left lower lobe in May. This responded clinically to Levaquin. He states he has had some chills but no documented fevers. The patient lives by himself. He has been fairly weak as mentioned. He is losing weight. He says he thinks he has lost about 10 pounds in the last year, but he is very slight and his family states he does not eat much. This has been most pronounced in the last couple of months. The patient admits to having fast heart rates. He states his rate is usually in the 120s. Apparently, he has an appointment to see a lumber driver. He had been on metoprolol, but some family members requested that it to be stopped because they had heard that it could cause a cough. PAST SURGICAL HISTORY: 1. Inguinal hernia repair. 2. Cataract surgery, right and left. PAST MEDICAL HISTORY: 1. Hypertension. 2. Diabetes. 3. Coronary artery disease. 4. BPH. 5. Hyperlipidemia. 6. Depression. SOCIAL HISTORY: Tobacco - never. ETOH - occasionally. ALLERGIES: None known allergies. FAMILY HISTORY: Mother at age 90, did not know what kind health trouble she had and father at age 69 from an NH. MEDICATIONS: At home: 1. Aspirin 81 mg daily. 2. Lipitor 10 mg every other day. 3. Diltiazem 180 mg daily. 4. Fluticasone 2 sprays daily. 5. Glucotrol 5 mg b.i.d. 6. Lantus insulin 6 units b.i.d. 7. Levothyroxine 50 mcg daily. 8. Losartan 100 mg daily. 9. Glucophage 1000 mg b.i.d. 10. Mirtazapine 30 mg at bedtime. 11. Dulera 100/5 two puffs b.i.d. 12. Tamsulosin 0.4 mg daily. 13. ProAir 2 puffs q. 4 hours p.r.n. REVIEW OF SYSTEMS: The patient's energy level has been fairly low. He had some dizziness and lightheadedness recently. There has been no true syncope. He denies chest pains. Pulmonary history is as noted above. He denies diarrhea or constipation, despite his poor appetite. Denies urinary problems. There have been no rashes. He has not had any swelling. Denies lymphadenopathy. Denies myalgias or arthralgias. Ten systems were reviewed. PHYSICAL EXAMINATION: VITAL SIGNS: The patient is an 89-year-old male who was cooperative, alert and oriented. He was in no distress at rest. Temperature is 36.6. Earlier today, the temperature was 37.2. HEENT: Eye exam showed implants. Nares were clear. Mouth exam was unremarkable. NECK: Palpation of the neck reveals no lymph nodes or masses. CHEST: Inspection of the chest reveals the ribs were prominent because he is so slender. His BMI is only 17.6. His weight is 48 kilograms. HEART: Rate was 88 per minute. There was an occasional extrasystole. Blood pressure is 110/68. LUNGS: Auscultation of the lung dao reveal diffuse rales bilaterally. This was mainly in the lower lung dao more than the upper lung dao. Oxygen saturation is reported as 100% on room air, but I suspect he actually had oxygen on. He had oxygen on when I was seeing him. ABDOMEN: Soft. Bowel sounds were present. There was no tenderness to palpation or masses. EXTREMITIES: Showed no cyanosis, clubbing or edema. LABORATORY DATA: White count is 6.46. Hemoglobin 11.8. Platelets were 150,000. Coags were normal. Urine osmolality was low at 420. Arterial blood gas done on 2 liters showed a pH of 7.41 with a pCO2 of 42 and a pO2 of 154. Sodium is 131, potassium 4.3, chloride 94, bicarbonate 30. BUN was 22 with a creatinine of 1.4. Blood sugar was 110. Troponin was normal. TSH was 1.8. IMAGING DATA: The patient had a chest x-ray done. This shows diffuse interstitial disease. Pulmonary fibrosis is suggested with honeycombing. CAT scan of the chest was done. This shows diffuse fibrosis and interstitial change with emphysematous changes and a cyst noted. No evidence of pulmonary embolic disease. IMPRESSIONS: 1. Pulmonary fibrosis with exacerbation. 2. Chronic cough. 3. Hyponatremia. COMMENTS AND RECOMMENDATIONS: The patient likely has very significant pulmonary fibrosis. I suspect PFTs have been done as an outpatient. It would be helpful if we could obtain the most recent PFTs. The patient is on doxycycline. I have no objection to this, although I am not convinced that he has an acute infection. He is on nebulizer treatments. I believe the patient should have some steroids at least acutely. This will require keeping close eyes on his blood sugars. Would use more modest doses than normal. Will start him on some Solu-Medrol if this has not already been done and then switched to prednisone relatively soon. I believe this might be the only hope if the patient could respond to this. He may benefit from some IV fluids. Perhaps would give him a trial of Tessalon Perles to see if that would help his cough. Thank you very much for asking me to assist in his care.
[2016-08-13] MEDS: IPRATROPIUM BROMIDE NEB SOLN 0.02% 2.5 ML VIAL INH SCH (19:19)
[2016-08-13] MEDS: LEVALBUTEROL 1.25MG/0.5ML NEB INH SCH (19:19)
[2016-08-13 19:20] VITALS: PULSE 73; O2SAT 97
[2016-08-13 19:24] LABS: BUN/CREATININE RATIO 17.5 (10-20); CALCIUM 8.4 mg/dl (8.5-10.1); CREATININE 1.3 mg/dl (0.60-1.40); POTASSIUM 4.2 mmol/L (3.5-5.1)
[2016-08-13 19:27] VITALS: BP 99/60; PULSE 88; TEMP 36.9; O2SAT 100
[2016-08-13] MEDS: METHYLPREDNISOLONE IV 40 MG in SYRINGE 0 ML IV SCH (19:51)
[2016-08-13] MEDS: FLUTICASONE PROPIONATE NA SPR 16 GM BTL NAE SCH (19:52)
[2016-08-13] MEDS: TAMSULOSIN HCL 0.4 MG CAP PO SCH (19:53)
[2016-08-13] MEDS: DOXYCYCLINE HYCLATE 100 MG CAP PO SCH (19:53)
[2016-08-13] MEDS: BOOST GLUCOSE CONTROL PO SCH (19:54)
[2016-08-13] MEDS: MIRTAZAPINE TAB 15 MG TAB PO SCH (19:55)
[2016-08-13] MEDS: HEPARIN SOD 5000 UNIT/0.5 ML CARP SQ SCH (20:00)
[2016-08-13] MEDS: INSULIN GLARGINE SOLOSTAR 100 UNITS/ML 3 ML PEN SC SCH (21:00)
[2016-08-13] MEDS: BENZONATATE 100MG CAP PO SCH (21:32)
[2016-08-13 23:00] LABS: CKMB/CK RATIO 1.3 (0-3.0)
[2016-08-14] VITALS (10 sets, daily range): BP systolic 98–119; BP diastolic 57–69; PULSE 59–103; TEMP 36.2–37; O2SAT 91–98
[2016-08-14 00:52] LABS: BUN/CREATININE RATIO 18.4 (10-20); CALCIUM 8.4 mg/dl (8.5-10.1); CREATININE 1.2 mg/dl (0.60-1.40)
[2016-08-14] MEDS: HEPARIN SOD 5000 UNIT/0.5 ML CARP SQ SCH ×4 (01:57→21:54)
[2016-08-14] MEDS: IPRATROPIUM BROMIDE NEB SOLN 0.02% 2.5 ML VIAL INH SCH ×4 (02:22→20:09)
[2016-08-14] MEDS: LEVALBUTEROL 1.25MG/0.5ML NEB INH SCH ×3 (02:23→14:31)
[2016-08-14] MEDS: SODIUM CHLORIDE 0.9% 1000ML 1,000 ML IV SCH ×2 (04:47→16:58)
[2016-08-14 04:59] LABS: BUN/CREATININE RATIO 17.1 (10-20); CALCIUM 8.3 mg/dl (8.5-10.1); CREATININE 1.3 mg/dl (0.60-1.40); POTASSIUM 5.1 mmol/L (3.5-5.1)
[2016-08-14] MEDS: LEVOTHYROXINE 50 MCG TAB PO SCH (06:08)
[2016-08-14] MEDS: METHYLPREDNISOLONE IV 40 MG in SYRINGE 0 ML IV SCH (06:10)
[2016-08-14] MEDS: MULTIVITAMIN TAB PO SCH (08:24)
[2016-08-14] MEDS: DILTIAZEM HCL (TIAzac) 180 MG CAPCR PO SCH (08:24)
[2016-08-14] MEDS: BENZONATATE 100MG CAP PO SCH ×3 (08:24→21:46)
[2016-08-14] MEDS: DOXYCYCLINE HYCLATE 100 MG CAP PO SCH ×2 (08:24→21:46)
[2016-08-14] MEDS: INSULIN ASPART 100 UNITS/ML 3 ML PEN SC SCH ×4 (08:32→21:53)
[2016-08-14] MEDS: INSULIN GLARGINE SOLOSTAR 100 UNITS/ML 3 ML PEN SC SCH ×2 (08:34→21:54)
[2016-08-14 09:25] LABS: BUN/CREATININE RATIO 20.3 (10-20); CREATININE 1.2 mg/dl (0.60-1.40); POTASSIUM 4.3 mmol/L (3.5-5.1)
[2016-08-14 09:26] LABS: CALCIUM 8.5 mg/dl (8.5-10.1)
[2016-08-14] MEDS: ASPIRIN 81 MG ECTAB PO SCH (09:27)
[2016-08-14] MEDS: BOOST GLUCOSE CONTROL PO SCH ×2 (09:27→16:58)
--- NOTE | 2016-08-14 10:40 | PULMONARY PROGRESS NOTE ---
DATE: 08/14/2016 DATE: 08/14/2016. TIME: 10:00 a.m. SUBJECTIVE: The patient is feeling better. His cough is less. There has been no sputum production. He has had no chest pain. His appetite is still poor. He has had no chills, fevers or sweats. Somewhat surprisingly, the patient's flu test was shown to be positive for influenza A. Thus he was moved to an isolation room. His symptoms did not seem strongly suggestive for influenza. OBJECTIVE: GENERAL: The patient is comfortable at rest. He did not cough during this exam. Temperature is 37 degrees. EARS, NOSE, THROAT: Exam is unremarkable. HEART: Heart rate is 96 per minute. Frequent extrasystoles were heard. VITAL SIGNS: Blood pressure 109/69. Respiratory rate is 20 breaths per minute. LUNGS: Lung dao revealed the rales were less than yesterday. There was no accessory muscle use. Oxygen saturation on room air taken by myself was 93%. ABDOMEN: Soft. Bowel sounds are normal. There was no tenderness to palpation or masses. EXTREMITIES: Showed no cyanosis, clubbing or edema. LABORATORY DATA: Hemoglobin today is 12.2. ABG yesterday showed a pH of 7.41 with a pCO2 of 42 and a pO2 of 154 on 2 liters. Electrolytes today show sodium 135, potassium 4.3, chloride 100, bicarbonate 24. BUN was 24 with a creatinine of 1.2. Blood sugar this morning was elevated at 286. No doubt this is due to the Solu-Medrol. IMPRESSIONS: 1. Pulmonary fibrosis with exacerbation. 2. Influenza A. 3. Chronic cough. COMMENTS AND RECOMMENDATIONS: The patient was started on Tamiflu. He clinically seems better. The blood sugars have increased. The methylprednisolone dosage is 40 mg IV q. 12 hours. I am going to decrease that down to 20 mg IV q. 12 because of the sugars. Perhaps tomorrow it can be changed to oral. Perhaps the patient would benefit from some physical therapy in terms of his ambulation. Perhaps a dietary consult or nutrition consult might be of value considering his weight loss. He is having frequent extrasystoles. Would suggest decreasing the levalbuterol perhaps to 0.63.
--- NOTE | 2016-08-14 10:46 | ECHOCARDIOGRAM REPORT ---
*NOTICE TO RECEIVING [employer] [employer] [facility] This information is strictly Confidential and protected under [place] law. [place] law prohibits you from making any further disclosure of this information unless further disclosure is expressly permitted by the written consent of the person to whom it pertains or is authorized by law. A general authorization for the release of medical or other information is not sufficient for this purpose. Hospital accepts no responsibility if the information is made available to any other person, INCLUDING THE PATIENT. Interpretation Summary * Name: SHAHIDA CHRISTENSEN Study Date: 08/14/2016 07:17 AM BP: 109/69 mmHg * Patient Location: C.2T\S\E220\S\1 HR: 103 * : 1925 (M/d/yyyy) Gender: Male Height: 65 in * Age: 89 yrs Ethnicity: [place] Weight: 105 lb * Ordering Physician: Pamela David * Referring Physician: No Doctor, Assigned * Performed By: Luzma Latif RDCS * * Reason For Study: WORSENING DYSPNEA ON EXERTION * BSA: 1.5 m2 * History: WORSENING DYSPNEA ON EXERTION * The study was technically adequate. * There is no comparison study available. * -- Conclusions -- * Ejection Fraction = 55-60%. * The base inferior and posterior anna are hypokinetic, otherwise, normal wall motion. * Grade I diastolic dysfunction, (abnormal relaxation pattern). * The right coronary cusp is moderately calcified with restricted openning. Cannot exclude partial fusion of the right and left coronary cusps. * Aortic stenosis is absent. * Mild aortic regurgitation. * There is mild mitral regurgitation. * There is mild tricuspid regurgitation. * Moderate aortic root dilatation. * Mildly dilated ascending aorta. Procedure Details * A complete two-dimensional transthoracic echocardiogram was performed (2D, M-mode, Doppler and color flow Doppler). Left Ventricle * The left ventricle is normal in size. * There is normal left ventricular wall thickness. * Ejection Fraction = 55-60%. * Left ventricular systolic function is normal. * The base inferior and posterior anna are hypokinetic, otherwise, normal wall motion. Right Ventricle * The right ventricle is normal size. * The right ventricular systolic function is normal as assessed by tricuspid annular plane systolic excursion (TAPSE) (normal >1.5 cm). Atria * The left atrial size is normal. * Right atrial size is normal. * There is no evidence of atrial septal defect, but resolution does not allow assessment for a patent foramen ovale. Mitral Valve * There is moderate mitral annular calcification. * There is no mitral valve stenosis. * There is mild mitral regurgitation. Tricuspid Valve * The tricuspid valve is normal. * There is no tricuspid stenosis. * There is mild tricuspid regurgitation. * Doppler findings do not suggest pulmonary hypertension. Aortic Valve * The aortic valve is trileaflet. * The right coronary cusp is moderately calcified with restricted openning. Cannot exclude partial fusion of the right and left coronary cusps. * Aortic stenosis is absent. * Mild aortic regurgitation. Pulmonic Valve * The pulmonary valve is not well seen, but the Doppler examination is normal without significant regurgitation or stenosis. Great Vessels * Moderate aortic root dilatation. * Mildly dilated ascending aorta. Pericardium/Pleural * There is no pericardial effusion. Great Vessels * IVC not well visualized. Left Ventricular Diastolic Function * Grade I diastolic dysfunction, (abnormal relaxation pattern). MMode 2D Measurements and Calculations IVSd 1.1 cm IVSs 1.4 cm LVIDd 4.0 cm LVIDs 3.2 cm LVPWd 0.88 cm LVPWs 0.92 cm IVS/LVPW 1.3 FS 18.8 % EDV(Teich) 68.0 ml ESV(Teich) 41.2 ml EF(Teich) 39.4 % EDV(cubed) 61.7 ml ESV(cubed) 33.0 ml EF(cubed) 46.5 % % IVS thick 20.5 % % LVPW thick 4.8 % LV mass(C)d 126.8 grams LV mass(C)dI 84.3 grams/m\S\2 LV mass(C)s 112.2 grams LV mass(C)sI 74.6 grams/m\S\2 SV(Teich) 26.8 ml SI(Teich) 17.8 ml/m\S\2 SV(cubed) 28.7 ml SI(cubed) 19.1 ml/m\S\2 Ao root diam 4.4 cm Ao root area 15.2 cm\S\2 LA dimension 2.6 cm LA/Ao 0.60 LVOT diam 2.1 cm LVOT area 3.5 cm\S\2 LVAd ap4 25.8 cm\S\2 LVLd ap4 7.9 cm EDV(MOD-sp4) 68.9 ml EDV(sp4-el) 71.3 ml LVAs ap4 15.9 cm\S\2 LVLs ap4 6.7 cm ESV(MOD-sp4) 34.9 ml ESV(sp4-el) 32.1 ml EF(MOD-sp4) 49.3 % EF(sp4-el) 54.9 % LVAd ap2 24.3 cm\S\2 LVLd ap2 8.1 cm EDV(MOD-sp2) 62.3 ml EDV(sp2-el) 61.9 ml LVAs ap2 14.0 cm\S\2 LVLs ap2 6.4 cm ESV(MOD-sp2) 29.2 ml ESV(sp2-el) 26.1 ml EF(MOD-sp2) 53.1 % EF(sp2-el) 57.8 % LVLd %diff 2.0 % EDV(MOD-bp) 64.8 ml LVLs %diff -4.77 % ESV(MOD-bp) 32.3 ml EF(MOD-bp) 50.3 % SV(MOD-sp4) 33.9 ml SI(MOD-sp4) 22.6 ml/m\S\2 SV(MOD-sp2) 33.0 ml SI(MOD-sp2) 22.0 ml/m\S\2 SV(MOD-bp) 32.6 ml SI(MOD-bp) 21.7 ml/m\S\2 SV(sp4-el) 39.2 ml SI(sp4-el) 26.0 ml/m\S\2 SV(sp2-el) 35.8 ml SI(sp2-el) 23.8 ml/m\S\2 Doppler Measurements and Calculations MV E max brent 62.4 cm/sec MV A max brent 118.7 cm/sec MV E/A 0.53 MV dec time 0.17 sec Ao V2 max 123.4 cm/sec Ao max PG 6.1 mmHg Ao max PG (full) 3.8 mmHg Ao V2 mean 89.3 cm/sec Ao mean PG 3.4 mmHg Ao mean PG (full) 2.2 mmHg Ao V2 VTI 24.8 cm SHERIF(I,A) 2.2 cm\S\2 SHERIF(I,D) 2.2 cm\S\2 SHERIF(V,A) 2.1 cm\S\2 SHERIF(V,D) 2.1 cm\S\2 LV V1 max PG 2.2 mmHg LV V1 mean PG 1.2 mmHg LV V1 max 74.9 cm/sec LV V1 mean 52.0 cm/sec LV V1 VTI 15.9 cm SV(Ao) 376.6 ml SI(Ao) 250.3 ml/m\S\2 SV(LVOT) 55.1 ml SI(LVOT) 36.6 ml/m\S\2 TR max brent 286.9 cm/sec
[2016-08-14 12:36] LABS: BUN/CREATININE RATIO 20.1 (10-20); CALCIUM 8.2 mg/dl (8.5-10.1); CREATININE 1.4 mg/dl (0.60-1.40); POTASSIUM 4.2 mmol/L (3.5-5.1)
[2016-08-14 12:52] LABS: BETA-HYDROXYBUTYRATE 4.02 mg/dL (0.2-2.81)
[2016-08-14] MEDS: OSELTAMIVIR PHOSPHATE SUSP 30 MG/5 ML UDP PO SCH (13:07)
[2016-08-14] MEDS ORDERED: INSULIN HUMAN REGULAR PER UNIT 5 UNITS in SYRINGE 4.95 ML IV ONE (15:15)
[2016-08-14 15:44] LABS: BETA-HYDROXYBUTYRATE 2.36 mg/dL (0.2-2.81)
--- NOTE | 2016-08-14 19:14 | Progress Note ---
Internal Med Progress Note Date of Service: Aug 14, 2016. Provider Documentation: SUBJECTIVE: sitting on the chair comfortably says feeling much better sob and cough improving afebrile eating ok OBJECTIVE: Vital Signs-as noted below Exam: General-alert and oriented x 3 Not in distress. Old and frail ENT-normal hearing Neck-no neck masses Lungs-cta b/l no wheezing no crackles Heart-s1 and s2 heard regular rate and rhythm no murmurs' Abdomen-soft bowel sounds present non tender no distension Extremities-no edema no erythema Neuro-alert and awake moves extremities Lab data as noted below. ASSESSMENT & PLAN: ACUTE ON CHRONIC RESPIRATORY FAILURE Possibly due to acute bronchitis in setting of interstitial lung disease/ pulmonary fibrosis Influenza a positive Was hypoxic to 86% on RA; not on home O2 CXR- findings of interstitial lung disease with pulmonary fibrosis, no infiltrate CTA chest- no evidence for major central PE, on empiric doxycycline, Xopenex-Atrovent nebs Continue Dulera Supplemental O2 per protocol Consulted pulmonary and appreciate inputs tapering steroids HYPONATREMIA improving with gentle fluids. FAWAD Creat increased to 1.5 from baseline 1.2-1.3 holding losartan Gentle IVF's resolved NONSPECIFIC EKG CHANGES History of CAD; prior echo 11/2015- EF 55%, mild-mod mitral and aortic insufficiency, mild tricuspid and pulmonic insufficiency, dilated aortic root 4.[address] depressions in V3-V6 resolved on repeat EKG serial ce negative asymptomatic Continue aspirin and statin Follows with Dr. Kong PAROXYSMAL ATRIAL FIBRILLATION on diltiazem Not on anticoagulation HYPERTENSION BP is stable Losartan on hold for FAWAD will monitor DM TYPE 2 Holding metformin and glipizide Continue Lantus Insulin sliding scale coverage hyperglycemia from steroids will monitor and Adjust insulin HYPOTHYROIDISM normal TSH on levothyroxine DYSLIPIDEMIA Continue statin MALNUTRITION/ WEIGHT LOSS Started boost glycemic control Consulted repairer handtools Will Consider CT a/p to rule out underlying malignancy DVT PROPHYLAXIS Heparin SQ. DISPOSITION to be determined pt/ot prior to discharge Vital Signs: Date Time Temp Pulse Resp B/P Pulse Ox O2 Delivery O2 Flow Rate FiO2 08/14/16 16:00 Room Air 08/14/16 15:47 36.2 82 20 98/57 95 Room Air 08/14/16 14:32 75 16 93 Room Air 08/14/16 11:11 36.2 101 18 119/62 96 Room Air 08/14/16 10:29 37.0 103 20 97 1.0 08/14/16 08:00 Room Air 08/14/16 07:44 103 20 109/69 97 Room Air 08/14/16 07:18 78 16 98 Room Air 08/14/16 04:00 Room Air 08/14/16 03:54 37.0 82 20 118/63 93 Room Air 08/14/16 00:52 91 Room Air 08/14/16 00:00 37.0 88 20 110/64 95 Room Air 08/13/16 20:00 Room Air 08/13/16 19:27 36.9 88 16 99/60 100 Nasal Cannula 08/13/16 19:20 73 18 97 Nasal Cannula 1.0 Lab Results: Results Past 24 Hours Test 08/13/16 20:15 08/13/16 22:20 08/14/16 00:10 08/14/16 02:09 Range/Units Bedside Glucose 117 168 70-99 mg/dl Total Creatine Kinase 126 39-308 U/L Creatine Kinase MB 1.7 0.5-3.6 ng/ml Creatine Kinase MB Ratio 1.3 0-3.0 Troponin I 0.020 0-0.045 ng/ml Sodium Level 134 136-145 mmol/L Potassium Level 5.0 3.5-5.1 mmol/L Chloride Level 97 98-107 mmol/L Carbon Dioxide Level 31 21-32 mmol/L Anion Gap 6.0 3-11 mmol/L Blood Urea Nitrogen 22 7-18 mg/dl Creatinine 1.20 0.60-1.40 mg/dl Est Creatinine Clear Calc Drug Dose 28.3 ml/min Estimated GFR () 61.8 Estimated GFR (Non- 53.3 BUN/Creatinine Ratio 18.4 10-20 Random Glucose 139 70-99 mg/dl Calcium Level 8.4 8.5-10.1 mg/dl Test 08/14/16 04:35 08/14/16 06:45 08/14/16 08:13 08/14/16 11:30 Range/Units Sodium Level 136 135 136-145 mmol/L Potassium Level 5.1 4.3 3.5-5.1 mmol/L Chloride Level 101 100 98-107 mmol/L Carbon Dioxide Level 29 24 21-32 mmol/L Anion Gap 6.0 11.0 3-11 mmol/L Blood Urea Nitrogen 22 24 7-18 mg/dl Creatinine 1.30 1.20 0.60-1.40 mg/dl Est Creatinine Clear Calc Drug Dose 26.2 27.4 ml/min Estimated GFR () 56.1 61.8 Estimated GFR (Non- 48.4 53.3 BUN/Creatinine Ratio 17.1 20.3 10-20 Random Glucose 217 286 70-99 mg/dl Calcium Level 8.3 8.5 8.5-10.1 mg/dl Bedside Glucose 228 392 70-99 mg/dl Test 08/14/16 11:52 08/14/16 12:00 08/14/16 14:40 08/14/16 16:55 Range/Units Bedside Glucose 397 335 70-99 mg/dl Sodium Level 133 136-145 mmol/L Potassium Level 4.2 3.5-5.1 mmol/L Chloride Level 98 98-107 mmol/L Carbon Dioxide Level 27 21-32 mmol/L Anion Gap 8.0 3-11 mmol/L Blood Urea Nitrogen 28 7-18 mg/dl Creatinine 1.40 0.60-1.40 mg/dl Est Creatinine Clear Calc Drug Dose 23.5 ml/min Estimated GFR () 51.3 Estimated GFR (Non- 44.2 BUN/Creatinine Ratio 20.1 10-20 Random Glucose 398 420 70-99 mg/dl Calcium Level 8.2 8.5-10.1 mg/dl Beta-Hydroxybutyric Acid 4.02 2.36 0.2-2.81 mg/dL Test 08/14/16 18:29 Range/Units Bedside Glucose 334 70-99 mg/dl Microbiology Results 08/13/16 Gram Stain - Final, Resulted 08/13/16 Sputum Culture - Preliminary, Resulted HEAVY NORMAL NICKOLAS Present, Final Rep...
[2016-08-14] MEDS: LEVALBUTEROL 0.63MG/3 ML NEB INH SCH (20:09)
[2016-08-14] MEDS: MOMETASONE/FORMOTEROL (DULERA) INH INH SCH (21:00)
[2016-08-14] MEDS ORDERED: DOCUSATE SODIUM 100 MG CAP PO ONE (21:15)
[2016-08-14] MEDS: MIRTAZAPINE TAB 15 MG TAB PO SCH (21:46)
[2016-08-14] MEDS: FLUTICASONE PROPIONATE NA SPR 16 GM BTL NAE SCH (21:46)
[2016-08-14] MEDS: TAMSULOSIN HCL 0.4 MG CAP PO SCH (21:46)
[2016-08-15] VITALS (7 sets, daily range): BP systolic 111–114; BP diastolic 58–63; PULSE 66–90; TEMP 36.3–36.6; O2SAT 90–96; Ht 165.1 cm; Wt 46.4 kg
[2016-08-15] MEDS: IPRATROPIUM BROMIDE NEB SOLN 0.02% 2.5 ML VIAL INH SCH ×4 (03:00→20:49)
[2016-08-15] MEDS: LEVALBUTEROL 0.63MG/3 ML NEB INH SCH ×4 (03:00→20:49)
[2016-08-15] MEDS: LEVOTHYROXINE 50 MCG TAB PO SCH (05:32)
[2016-08-15] MEDS: SODIUM CHLORIDE 0.9% 1000ML 1,000 ML IV SCH (05:32)
[2016-08-15] MEDS: BOOST GLUCOSE CONTROL PO SCH ×2 (07:59→17:00)
[2016-08-15] MEDS: MOMETASONE/FORMOTEROL (DULERA) INH INH SCH ×2 (08:00→20:52)
[2016-08-15] MEDS: MULTIVITAMIN TAB PO SCH (08:01)
[2016-08-15] MEDS: DILTIAZEM HCL (TIAzac) 180 MG CAPCR PO SCH (08:02)
[2016-08-15] MEDS: DOCUSATE SODIUM 100 MG CAP PO SCH (08:02)
[2016-08-15] MEDS: BENZONATATE 100MG CAP PO SCH ×3 (08:02→20:53)
[2016-08-15] MEDS: DOXYCYCLINE HYCLATE 100 MG CAP PO SCH ×2 (08:02→20:52)
[2016-08-15] MEDS: ASPIRIN 81 MG ECTAB PO SCH (08:02)
[2016-08-15] MEDS: INSULIN ASPART 100 UNITS/ML 3 ML PEN SC SCH ×4 (08:11→21:02)
[2016-08-15] MEDS: INSULIN GLARGINE SOLOSTAR 100 UNITS/ML 3 ML PEN SC SCH ×2 (08:12→21:01)
[2016-08-15] MEDS: HEPARIN SOD 5000 UNIT/0.5 ML CARP SQ SCH ×3 (08:12→21:00)
[2016-08-15] MEDS: OSELTAMIVIR PHOSPHATE SUSP 30 MG/5 ML UDP PO SCH (08:20)
[2016-08-15] MEDS ORDERED: METHYLPREDNISOLONE IV 40 MG in SYRINGE 0 ML IV SCH (09:00)
--- NOTE | 2016-08-15 11:07 | Progress Note ---
Internal Med Progress Note Date of Service: Aug 15, 2016. Provider Documentation: SUBJECTIVE: sitting on the chair comfortably cough and sob improved eating better ambulating ok denies any other complaints OBJECTIVE: Vital Signs-as noted below Exam: General-alert and oriented x 3 Not in distress. Old and frail ENT-normal hearing Neck-no neck masses Lungs-cta b/l no wheezing no crackles Heart-s1 and s2 heard regular rate and rhythm no murmurs' Abdomen-soft bowel sounds present non tender no distension Extremities-no edema no erythema Neuro-alert and awake moves extremities Lab data as noted below. ASSESSMENT & PLAN: ACUTE ON CHRONIC RESPIRATORY FAILURE Possibly due to acute bronchitis in setting of interstitial lung disease/ pulmonary fibrosis Influenza a positive Was hypoxic to 86% on RA; not on home O2 CXR- findings of interstitial lung disease with pulmonary fibrosis, no infiltrate CTA chest- no evidence for major central PE, on empiric doxycycline, Xopenex-Atrovent nebs Continue Dulera Supplemental O2 per protocol Consulted pulmonary and appreciate inputs tapering steroids improving, will continue same HYPONATREMIA improving with gentle fluids. f/u labs in am FAWAD Creat increased to 1.5 from baseline 1.2-1.3 holding losartan Gentle IVF's resolved will f/u labs NONSPECIFIC EKG CHANGES History of CAD; prior echo 11/2015- EF 55%, mild-mod mitral and aortic insufficiency, mild tricuspid and pulmonic insufficiency, dilated aortic root 4.[address] depressions in V3-V6 resolved on repeat EKG serial ce negative asymptomatic Continue aspirin and statin Follows with Dr. Kong PAROXYSMAL ATRIAL FIBRILLATION on diltiazem Not on anticoagulation HYPERTENSION BP is stable Losartan on hold for FAWAD will monitor DM TYPE 2 Holding metformin and glipizide Continue Lantus Insulin sliding scale coverage hyperglycemia from steroids 335/334/243/263 will monitor and Adjust insulin HYPOTHYROIDISM normal TSH on levothyroxine DYSLIPIDEMIA Continue statin MALNUTRITION/ WEIGHT LOSS Started boost glycemic control Consulted lodge sales associate Will Consider CT a/p to rule out underlying malignancy DVT PROPHYLAXIS Heparin SQ. DISPOSITION possible d/c in 1-2 days pt/ot prior to discharge Vital Signs: Date Time Temp Pulse Resp B/P Pulse Ox O2 Delivery O2 Flow Rate FiO2 08/15/16 09:14 36.6 78 18 111/63 94 08/15/16 08:00 Room Air 08/15/16 07:24 66 16 93 Room Air 08/15/16 00:40 36.5 78 18 114/61 96 Room Air 08/15/16 00:00 Room Air 08/14/16 20:09 59 16 93 Room Air 08/14/16 16:00 Room Air 08/14/16 15:47 36.2 82 20 98/57 95 Room Air 08/14/16 14:32 75 16 93 Room Air 08/14/16 11:11 36.2 101 18 119/62 96 Room Air Lab Results: Results Past 24 Hours Test 08/14/16 11:30 08/14/16 11:52 08/14/16 12:00 08/14/16 14:40 Range/Units Bedside Glucose 392 397 70-99 mg/dl Sodium Level 133 136-145 mmol/L Potassium Level 4.2 3.5-5.1 mmol/L Chloride Level 98 98-107 mmol/L Carbon Dioxide Level 27 21-32 mmol/L Anion Gap 8.0 3-11 mmol/L Blood Urea Nitrogen 28 7-18 mg/dl Creatinine 1.40 0.60-1.40 mg/dl Est Creatinine Clear Calc Drug Dose 23.5 ml/min Estimated GFR () 51.3 Estimated GFR (Non- 44.2 BUN/Creatinine Ratio 20.1 10-20 Random Glucose 398 420 70-99 mg/dl Calcium Level 8.2 8.5-10.1 mg/dl Beta-Hydroxybutyric Acid 4.02 2.36 0.2-2.81 mg/dL Test 08/14/16 16:55 08/14/16 18:29 08/14/16 20:09 08/15/16 07:45 Range/Units Bedside Glucose 335 334 243 263 70-99 mg/dl Test 08/15/16 10:04 Range/Units
[2016-08-15 11:48] LABS: BUN/CREATININE RATIO 20.6 (10-20); CALCIUM 8.2 mg/dl (8.5-10.1); CREATININE 1.5 mg/dl (0.60-1.40); MAGNESIUM 2.1 mg/dl (1.8-2.4); POTASSIUM 4.2 mmol/L (3.5-5.1)
[2016-08-15] MEDS: ATORVASTATIN 10 MG TAB PO SCH (14:33)
--- NOTE | 2016-08-15 17:37 | PULMONARY PROGRESS NOTE ---
DATE: 08/15/2016 TIME: 05:20 p.m. SUBJECTIVE: The patient states his cough is about the same. Likewise, his degree of shortness of breath is about the same. His appetite is continuing to improve. He does feel better in that respect. He has had no nausea at all. OBJECTIVE: GENERAL: The patient appears comfortable at rest. He had 2 family members with him during this exam. VITAL SIGNS: Temperature is normal at 36.3. He has not had any fevers. Heart rate is 90 per minute. Blood pressure 114/58. Respiratory rate is 20 breaths per minute and not labored. Saturation has been ranging between 90% and 95% on room air today. EARS, NOSE, AND THROAT: Exam is unremarkable. LUNGS: Rales are heard posteriorly and they are greater on the right than the left at this time. EXTREMITIES: Showed no cyanosis, clubbing or edema. LABORATORY DATA: The patient's blood sugars today have been elevated at 263, 299 and 238. No doubt these are exacerbated by the steroids. IMPRESSIONS: 1. Pulmonary fibrosis with exacerbation. 2. Influenza A. 3. Chronic cough. COMMENTS AND RECOMMENDATIONS: The patient seems fairly stable. He should have a 2-step to determine his need for oxygen at home. I believe we should have the prednisone trial realizing that his blood sugars may be altered. We do not have a whole lot else to offer him. I would send him home on 30 mg daily for now. I would probably give him a trial at that dose for a month or 2 unless he had severe side effects or diabetes complications. He should have followup pulmonary function tests in a month or 2.
[2016-08-15] MEDS: FLUTICASONE PROPIONATE NA SPR 16 GM BTL NAE SCH (20:52)
[2016-08-15] MEDS: MIRTAZAPINE TAB 15 MG TAB PO SCH (20:53)
[2016-08-15] MEDS: TAMSULOSIN HCL 0.4 MG CAP PO SCH (20:53)
[2016-08-16 02:42] VITALS: PULSE 66; O2SAT 92
[2016-08-16] MEDS: IPRATROPIUM BROMIDE NEB SOLN 0.02% 2.5 ML VIAL INH SCH (02:42)
[2016-08-16] MEDS: LEVALBUTEROL 0.63MG/3 ML NEB INH SCH (02:42)
[2016-08-16] MEDS: LEVOTHYROXINE 50 MCG TAB PO SCH (06:24)
[2016-08-16 06:50] LABS: MEAN CELL VOLUME 91.4 fL (80-100); MEAN CORPUSCULAR HGB CONC 32.8 g/dl (32-36); MEAN PLATELET VOLUME 9.5 fL (7.4-10.4); PLATELET COUNT 129 K/uL (130-400); WHITE BLOOD COUNT 4.53 K/uL (4.8-10.8)
[2016-08-16 07:07] VITALS: O2SAT 96
[2016-08-16 07:24] LABS: BUN/CREATININE RATIO 23.7 (10-20); CALCIUM 8.3 mg/dl (8.5-10.1); CREATININE 1.1 mg/dl (0.60-1.40); POTASSIUM 4.2 mmol/L (3.5-5.1)
[2016-08-16 08:40] VITALS: BP 118/74; PULSE 96; TEMP 36.4; O2SAT 98
[2016-08-16] MEDS: ASPIRIN 81 MG ECTAB PO SCH (08:41)
[2016-08-16] MEDS: DOCUSATE SODIUM 100 MG CAP PO SCH (08:41)
[2016-08-16] MEDS: DILTIAZEM HCL (TIAzac) 180 MG CAPCR PO SCH (08:41)
[2016-08-16] MEDS: DOXYCYCLINE HYCLATE 100 MG CAP PO SCH ×2 (08:42→22:06)
[2016-08-16] MEDS: MULTIVITAMIN TAB PO SCH (08:42)
[2016-08-16] MEDS: BENZONATATE 100MG CAP PO SCH ×3 (08:42→22:06)
[2016-08-16] MEDS: OSELTAMIVIR PHOSPHATE SUSP 30 MG/5 ML UDP PO SCH (08:42)
[2016-08-16] MEDS: MOMETASONE/FORMOTEROL (DULERA) INH INH SCH ×2 (08:43→22:07)
[2016-08-16] MEDS: BOOST GLUCOSE CONTROL PO SCH ×2 (08:43→18:40)
[2016-08-16] MEDS: INSULIN ASPART 100 UNITS/ML 3 ML PEN SC SCH ×4 (08:44→22:03)
[2016-08-16] MEDS: INSULIN GLARGINE SOLOSTAR 100 UNITS/ML 3 ML PEN SC SCH (08:46)
[2016-08-16] MEDS: HEPARIN SOD 5000 UNIT/0.5 ML CARP SQ SCH ×3 (08:47→22:04)
[2016-08-16 10:06] VITALS: O2SAT 98
[2016-08-16] MEDS: LEValbuterol HFA 15GM INHALER INH SCH ×2 (14:02→18:41)
[2016-08-16] MEDS: IPRATROPIUM BROMIDE HFA INHALER INH SCH ×2 (14:02→18:40)
--- NOTE | 2016-08-16 15:38 | PULMONARY PROGRESS NOTE ---
DATE: 08/16/2016 DATE: 08/16/2016. TIME: 3:00 p.m. SUBJECTIVE: The patient feels about the same. He is still coughing some. I did not hear him cough during this exam. He is still short of breath with exertion. His energy level and his activities have improved. His appetite has improved and this probably has resulted in somewhat better energy. I suspect these are related to being on the prednisone. The patient tells me that he did a 2 step test and that he does not need oxygen. OBJECTIVE: GENERAL: The patient is comfortable. Temperature is 36.4. EARS, NOSE, THROAT: Exam is unremarkable. VITAL SIGNS: The patient's cardiac rate was 84 per minute at the time of my exam. He did have fairly frequent extrasystoles. Blood pressure is 118/74. CHEST: Lung dao reveals rales in both lower lung dao posteriorly. These are dry in nature. Oxygen saturation at rest was 98% on room air. Respiratory rate was 20 breaths per minute. EXTREMITIES: Showed no cyanosis, clubbing or edema. IMPRESSIONS: 1. Pulmonary fibrosis with exacerbation. 2. Influenza A. 3. Chronic cough. COMMENTS: The patient seems stable. I have no objection to discharge when desired. For now, I would send him home with prednisone 30 mg per day. He can follow up with Mallory from his pulmonary office. If he does well, I would keep him on steroids for a few months and see how much benefit he can achieve. Follow up pulmonary functions would be advised. If his blood sugars stay out of control the prednisone may need to be tapered on that regard. I think it is reasonable to return the patient back to his inhalers that he had at home including the Dulera and the ProAir. I am doubtful that the neb treatments have improved him substantially or the levalbuterol and ipratropium inhalers. They obviously would be an option, however.
[2016-08-16 16:11] VITALS: BP 107/68; PULSE 92; TEMP 36.3; O2SAT 99
[2016-08-16 16:22] VITALS: O2SAT 99
--- NOTE | 2016-08-16 18:27 | Progress Note ---
Internal Med Progress Note Date of Service: Aug 16, 2016. Provider Documentation: SUBJECTIVE: sitting on the chair comfortably ambulating fine' afebrile eating ok want to go home in am OBJECTIVE: Vital Signs-as noted below Exam: General-alert and oriented x 3 Not in distress. Old and frail ENT-normal hearing Neck-no neck masses Lungs-cta b/l no wheezing no crackles Heart-s1 and s2 heard regular rate and rhythm no murmurs' Abdomen-soft bowel sounds present non tender no distension Extremities-no edema no erythema Neuro-alert and awake moves extremities Lab data as noted below. ASSESSMENT & PLAN: ACUTE ON CHRONIC RESPIRATORY FAILURE Possibly due to acute bronchitis in setting of interstitial lung disease/ pulmonary fibrosis Influenza a positive Was hypoxic to 86% on RA; not on home O2 CXR- findings of interstitial lung disease with pulmonary fibrosis, no infiltrate CTA chest- no evidence for major central PE, on empiric doxycycline, Xopenex-Atrovent nebs Continue Dulera Supplemental O2 per protocol Consulted pulmonary and appreciate inputs tapering steroids improving, will continue same plan for to d/c on prednisone 30mg daily for one to two months and taper as per pulmonary HYPONATREMIA improving with gentle fluids. resolved FAWAD Creat increased to 1.5 from baseline 1.2-1.3 holding losartan Gentle IVF's resolved will f/u labs NONSPECIFIC EKG CHANGES History of CAD; prior echo 11/2015- EF 55%, mild-mod mitral and aortic insufficiency, mild tricuspid and pulmonic insufficiency, dilated aortic root 4.[address] depressions in V3-V6 resolved on repeat EKG serial ce negative asymptomatic Continue aspirin and statin Follows with Dr. Kong PAROXYSMAL ATRIAL FIBRILLATION on diltiazem Not on anticoagulation HYPERTENSION BP is stable Losartan on hold for FAWAD bp stable off of losartan will monitor DM TYPE 2 Holding metformin and glipizide Continue Lantus Insulin sliding scale coverage hyperglycemia from steroids adjusting Lantus and started glipizide will monitor HYPOTHYROIDISM normal TSH on levothyroxine DYSLIPIDEMIA Continue statin MALNUTRITION/ WEIGHT LOSS Started boost glycemic control Consulted web press operator helper offset Will Consider CT a/p to rule out underlying malignancy DVT PROPHYLAXIS Heparin SQ. DISPOSITION possible d/c in am Vital Signs: Date Time Temp Pulse Resp B/P Pulse Ox O2 Delivery O2 Flow Rate FiO2 08/16/16 16:11 36.3 92 20 107/68 99 Room Air 08/16/16 10:06 98 Room Air 08/16/16 08:40 36.4 96 19 118/74 98 Room Air 08/16/16 08:00 Room Air 08/16/16 07:07 96 Room Air 08/16/16 02:42 66 16 92 Room Air 08/16/16 00:00 Room Air 08/15/16 23:24 36.5 86 16 114/58 90 Room Air 08/15/16 22:21 Room Air 08/15/16 20:49 66 16 93 Room Air Lab Results: Results Past 24 Hours Test 08/15/16 19:56 08/16/16 06:38 08/16/16 08:34 08/16/16 11:41 Range/Units Bedside Glucose 199 189 205 70-99 mg/dl White Blood Count 4.53 4.8-10.8 K/uL Red Blood Count 3.50 4.7-6.1 M/uL Hemoglobin 10.5 14.0-18.0 g/dL Hematocrit 32.0 42-52 % Mean Corpuscular Volume 91.4 80-100 fL Mean Corpuscular Hemoglobin 30.0 25-34 pg Mean Corpuscular Hemoglobin Concent 32.8 32-36 g/dl RDW Standard Deviation 48.2 36.4-46.3 fL RDW Coefficient of Variation 14.3 11.5-14.5 % Platelet Count 129 130-400 K/uL Mean Platelet Volume 9.5 7.4-10.4 fL Sodium Level 139 136-145 mmol/L Potassium Level 4.2 3.5-5.1 mmol/L Chloride Level 104 98-107 mmol/L Carbon Dioxide Level 29 21-32 mmol/L Anion Gap 6.0 3-11 mmol/L Blood Urea Nitrogen 26 7-18 mg/dl Creatinine 1.10 0.60-1.40 mg/dl Est Creatinine Clear Calc Drug Dose 29.9 ml/min Estimated GFR () 68.6 Estimated GFR (Non- 59.2 BUN/Creatinine Ratio 23.7 10-20 Random Glucose 165 70-99 mg/dl Calcium Level 8.3 8.5-10.1 mg/dl Test 08/16/16 16:31 Range/Units Bedside Glucose 307 70-99 mg/dl
[2016-08-16] MEDS ORDERED: INSULIN GLARGINE SOLOSTAR 100 UNITS/ML 3 ML PEN SC SCH (21:00)
[2016-08-16] MEDS: TAMSULOSIN HCL 0.4 MG CAP PO SCH (22:05)
[2016-08-16] MEDS: FLUTICASONE PROPIONATE NA SPR 16 GM BTL NAE SCH (22:07)
[2016-08-16] MEDS: MIRTAZAPINE TAB 15 MG TAB PO SCH (22:07)
[2016-08-17] MEDS: LEValbuterol HFA 15GM INHALER INH SCH ×4 (00:14→17:22)
[2016-08-17] MEDS: IPRATROPIUM BROMIDE HFA INHALER INH SCH ×4 (00:14→17:22)
[2016-08-17 00:53] VITALS: BP 96/56; PULSE 66; TEMP 36.5; O2SAT 99
[2016-08-17] MEDS: LEVOTHYROXINE 50 MCG TAB PO SCH (06:18)
[2016-08-17 07:20] LABS: ESTIMATED AVERAGE GLUCOSE 148 mg/dl; HA1C FLAG Normal (Normal)
[2016-08-17] MEDS ORDERED: PHARMACY GLYCEMIC MGMT CONSULT PRN (07:49)
[2016-08-17] MEDS: MOMETASONE/FORMOTEROL (DULERA) INH INH SCH ×2 (08:17→19:56)
[2016-08-17] MEDS: SODIUM CHLORIDE 0.9% 1000ML 1,000 ML IV SCH ×2 (08:17→19:54)
[2016-08-17] MEDS: OSELTAMIVIR PHOSPHATE SUSP 30 MG/5 ML UDP PO SCH (08:18)
[2016-08-17] MEDS: DILTIAZEM HCL (TIAzac) 180 MG CAPCR PO SCH (08:19)
[2016-08-17] MEDS: BENZONATATE 100MG CAP PO SCH ×3 (08:19→20:02)
[2016-08-17] MEDS: DOXYCYCLINE HYCLATE 100 MG CAP PO SCH ×2 (08:19→20:03)
[2016-08-17] MEDS: BOOST GLUCOSE CONTROL PO SCH ×2 (08:19→17:22)
[2016-08-17] MEDS: DOCUSATE SODIUM 100 MG CAP PO SCH (08:20)
[2016-08-17] MEDS: ASPIRIN 81 MG ECTAB PO SCH (08:20)
[2016-08-17] MEDS: MULTIVITAMIN TAB PO SCH (08:20)
[2016-08-17] MEDS: INSULIN ASPART 100 UNITS/ML 3 ML PEN SC SCH ×4 (08:23→20:07)
[2016-08-17] MEDS: INSULIN GLARGINE SOLOSTAR 100 UNITS/ML 3 ML PEN SC SCH ×2 (08:24→20:08)
[2016-08-17] MEDS: HEPARIN SOD 5000 UNIT/0.5 ML CARP SQ SCH ×3 (08:25→20:09)
[2016-08-17] MEDS ORDERED: LOSARTAN POTASSIUM 50 MG TAB PO SCH (09:00)
--- NOTE | 2016-08-17 10:00 | Pharmacy Progress Note ---
Glycemic Control Intl Consult Date of Service Aug 17, 2016. Scope Glycemic Pharmacist consulted for glycemic control and to write orders per [facility] inpatient glycemic control protocol Objective Weight (Kilograms): 46.400 Accuchecks BSG (last 24hrs): Test 08/16/16 11:41 08/16/16 16:31 08/16/16 20:08 08/17/16 00:07 Bedside Glucose 205 mg/dl (70-99) 307 mg/dl (70-99) 432 mg/dl (70-99) 253 mg/dl (70-99) Test 08/17/16 07:26 Bedside Glucose 135 mg/dl (70-99) HbA1c Test 08/16/16 06:38 Hemoglobin A1c 6.8 % (4.5-5.6) H Recent Pertinent Medications Outpatient Anti-diabetic Regimen: * Lantus 6 units SC BID * Metformin ER 1 g po BID * Glipizide 5 mg po BID * A1c = 6.8 % on 08/16/16 The patient is currently receiving: * Basal insulin: Lantus 15 units every 12 hours * Correctional Insulin: Novolog Correction per scale ACHS Goal Range: Low 110 mg/dL - High 140 mg/dL Correction Factor: 25 mg/dL/unit * Prandial insulin: Per carb ratio of 1 unit per 7 grams CHO consumed * Oral Agents: Glipizide 5 mg po BIDM Risk Factors for Insulin Resistance: * Steroids: Prednisone 30 mg daily (new this admission, plan to discharge on for prolonged course) * Infection: Bronchitis, on doxycycline and Tamiflu * Diet: T2DM Assessment & Plan ASSESSMENT: * ADA & AACE recommend a goal blood sugar range 140-180 mg/dl for the majority of critically ill & non-critically ill patients. However, more stringent targets may be selected in individual cases. * 89 yo M admitted w acute on chronic resp failure. * Adequate outpatient control of diabetes per HbA1c. However, initiated prednisone 30 mg po daily this admission and plan to discharge on prednisone which has caused persistent severe steroid-induced hyperglycemia while inpatient. * Outpatient total daily dose of insulin is 12 units (administered as basal only) * Patient has been receiving over 50-60 units daily (basal and bolus) this admission and BSG's almost uniformly above 200-250 mg/dL * Will require a change in regimen on discharge if sent home with prednisone * Fasting BSG good this AM after receiving a total of 25 units of Lantus yesterday. Will continue similar total daily dose, but divided. * Hyperglycemia this admission likely for 2 reasons * Steroid-induced: will tighten carb ratio (as this is best for steroid- induced hyperglycemia) * Possible missing Boost in carb count: will update order comments to ensure coverage * Glipizide w increased risk for hypoglycemia inpatient - will d/c * SCr likely at/near baseline. OK to resume metformin. PLAN FOR INPATIENT GLYCEMIC CONTROL: * Discontinue glipizide * Resume metformin * Adjust basal insulin with LANTUS 12 units SQ BID (1/2 dose for BSG < 100 mg/dL ) * Correctional Insulin with NOVOLOG per scale ACHS or Q6hrs while NPO * Goal Range: Low 110 mg/dL - High 140 mg/dL * Correction Factor: 25 mg/dL/unit * Tighten Nutritional / Prandial insulin per carb ratio of 1 unit per 6 grams CHO consumed * Please note that the plan above was derived based on current level of insulin resistance and hospital stress. These recommendations are appropriate for inpatient admission only. Plan of care upon discharge will need to be reassessed to avoid potential outpatient hypo/hyperglycemia. Thank you.
[2016-08-17] MEDS: METFORMIN HCL 500 MG TABCR PO SCH ×2 (11:57→20:01)
[2016-08-17] MEDS: ATORVASTATIN 10 MG TAB PO SCH (13:57)
[2016-08-17 16:11] VITALS: BP 134/60; PULSE 69; TEMP 36.4; O2SAT 98
--- NOTE | 2016-08-17 16:33 | Progress Note ---
Internal Med Progress Note Date of Service: Aug 17, 2016. Provider Documentation: SUBJECTIVE: sitting on the chair comfortably says walking fine denies sob or cough eating ok wants to go home OBJECTIVE: Vital Signs-as noted below Exam: General-alert and oriented x 3 Not in distress. Old and frail ENT-normal hearing Neck-no neck masses Lungs-cta b/l no wheezing no crackles Heart-s1 and s2 heard regular rate and rhythm no murmurs' Abdomen-soft bowel sounds present non tender no distension Extremities-no edema no erythema Neuro-alert and awake moves extremities Lab data as noted below. 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 resolved FAWAD Creat increased to 1.5 from baseline 1.2-1.3 holding losartan Gentle IVF's resolved will f/u labs NONSPECIFIC EKG CHANGES History of CAD; prior echo 11/2015- EF 55%, mild-mod mitral and aortic insufficiency, mild tricuspid and pulmonic insufficiency, dilated aortic root 4.[address] depressions in V3-V6 resolved on repeat EKG serial ce negative asymptomatic Continue aspirin and statin Follows with Dr. Kong PAROXYSMAL ATRIAL FIBRILLATION on diltiazem Not on anticoagulation HYPERTENSION BP is stable Losartan on hold for FAWAD bp stable off of losartan will monitor DM TYPE 2 Holding metformin and glipizide Continue Lantus Insulin sliding scale coverage hyperglycemia from steroids adjusting Lantus and started glipizide appreciate pharmacy inputs HYPOTHYROIDISM normal TSH on levothyroxine DYSLIPIDEMIA Continue statin MALNUTRITION/ WEIGHT LOSS Started boost glycemic control Consulted v belt coverer Will Consider CT a/p to rule out underlying malignancy DVT PROPHYLAXIS Heparin SQ. DISPOSITION ambulate in malik ways possible d/c in am Vital Signs: Date Time Temp Pulse Resp B/P Pulse Ox O2 Delivery O2 Flow Rate FiO2 08/17/16 16:15 Room Air 08/17/16 16:11 36.4 69 20 134/60 98 08/17/16 08:30 Room Air 08/17/16 00:53 36.5 66 20 96/56 99 Room Air 08/16/16 23:59 Room Air Lab Results: Results Past 24 Hours Test 08/16/16 20:08 08/17/16 00:07 08/17/16 07:26 08/17/16 11:48 Range/Units Bedside Glucose 432 253 135 151 70-99 mg/dl Test 08/17/16 16:10 Range/Units Bedside Glucose 123 70-99 mg/dl
[2016-08-17] MEDS: FLUTICASONE PROPIONATE NA SPR 16 GM BTL NAE SCH (19:56)
[2016-08-17] MEDS: TAMSULOSIN HCL 0.4 MG CAP PO SCH (20:02)
[2016-08-17] MEDS: MIRTAZAPINE TAB 15 MG TAB PO SCH (20:06)
[2016-08-18 00:17] VITALS: BP 130/62; PULSE 86; TEMP 36.4; O2SAT 96
[2016-08-18] MEDS: IPRATROPIUM BROMIDE HFA INHALER INH SCH ×3 (00:29→11:36)
[2016-08-18] MEDS: LEValbuterol HFA 15GM INHALER INH SCH ×3 (00:29→11:36)
[2016-08-18] MEDS: LEVOTHYROXINE 50 MCG TAB PO SCH (05:41)
[2016-08-18] MEDS: MOMETASONE/FORMOTEROL (DULERA) INH INH SCH (07:26)
[2016-08-18] MEDS: BENZONATATE 100MG CAP PO SCH ×2 (07:26→12:03)
[2016-08-18] MEDS: METFORMIN HCL 500 MG TABCR PO SCH (07:26)
[2016-08-18] MEDS: OSELTAMIVIR PHOSPHATE SUSP 30 MG/5 ML UDP PO SCH (07:26)
[2016-08-18] MEDS: DOCUSATE SODIUM 100 MG CAP PO SCH (07:27)
[2016-08-18] MEDS: ASPIRIN 81 MG ECTAB PO SCH (07:27)
[2016-08-18] MEDS: DILTIAZEM HCL (TIAzac) 180 MG CAPCR PO SCH (07:27)
[2016-08-18] MEDS: DOXYCYCLINE HYCLATE 100 MG CAP PO SCH (07:27)
[2016-08-18] MEDS: MULTIVITAMIN TAB PO SCH (07:27)
[2016-08-18] MEDS: BOOST GLUCOSE CONTROL PO SCH (07:28)
[2016-08-18 08:02] VITALS: BP 134/68; PULSE 101; TEMP 36.3; O2SAT 96
[2016-08-18] MEDS: INSULIN ASPART 100 UNITS/ML 3 ML PEN SC SCH ×2 (08:08→12:05)
[2016-08-18] MEDS: INSULIN GLARGINE SOLOSTAR 100 UNITS/ML 3 ML PEN SC SCH (08:09)
[2016-08-18] MEDS: HEPARIN SOD 5000 UNIT/0.5 ML CARP SQ SCH (08:10)
[2016-08-18] MEDS: SODIUM CHLORIDE 0.9% 1000ML 1,000 ML IV SCH (10:31)
--- NOTE | 2016-08-18 11:13 | Pharmacy Progress Note ---
Glycemic Control: Progress Nt Date of Service Aug 18, 2016. Scope Glycemic Pharmacist consulted for glycemic control and to write orders per [facility] inpatient glycemic control protocol. Objective Accuchecks BSG (last 24hrs): Test 08/17/16 11:48 08/17/16 16:10 08/17/16 19:46 08/18/16 07:26 Bedside Glucose 151 mg/dl (70-99) 123 mg/dl (70-99) 187 mg/dl (70-99) 70 mg/dl (70-99) HbA1c: Test 08/16/16 06:38 Hemoglobin A1c 6.8 % (4.5-5.6) H Recent Pertinent Medications Outpatient Anti-diabetic Regimen: * Lantus 6 units SC BID * Metformin ER 1 g po BID * Glipizide 5 mg po BID * A1c = 6.8 % on 08/16/16 The patient is currently receiving: * Basal insulin: Lantus 12 units every 12 hours (1/2 dose for BSG < 100 mg/dL) * Correctional Insulin: Novolog Correction per scale ACHS Goal Range: Low 110 mg/dL - High 140 mg/dL Correction Factor: 25 mg/dL/unit * Prandial insulin: Per carb ratio of 1 unit per 6 grams CHO consumed * Oral Agents: Metformin ER 1 g po BID Risk Factors for Insulin Resistance: * Steroids: Prednisone 30 mg daily (new this admission, plan to discharge on for prolonged course) * Infection: Bronchitis, on doxycycline and Tamiflu * Diet: T2DM Assessment & Plan ASSESSMENT: * ADA & AACE recommend a goal blood sugar range 140-180 mg/dl for the majority of critically ill & non-critically ill patients. However, more stringent targets may be selected in individual cases. 08/17/16 * 89 yo M admitted w acute on chronic resp failure. * Adequate outpatient control of diabetes per HbA1c. However, initiated prednisone 30 mg po daily this admission and plan to discharge on prednisone which has caused persistent severe steroid-induced hyperglycemia while inpatient. * Outpatient total daily dose of insulin is 12 units (administered as basal only) * Patient has been receiving over 50-60 units daily (basal and bolus) this admission and BSG's almost uniformly above 200-250 mg/dL * Will require a change in regimen on discharge if sent home with prednisone * Fasting BSG good this AM after receiving a total of 25 units of Lantus yesterday. Will continue similar total daily dose, but divided. * Hyperglycemia this admission likely for 2 reasons * Steroid-induced: will tighten carb ratio (as this is best for steroid- induced hyperglycemia) * Possible missing Boost in carb count: will update order comments to ensure coverage * Glipizide w increased risk for hypoglycemia inpatient - will d/c * SCr likely at/near baseline. OK to resume metformin. 08/18/16 * AM fasting BSG below goal. Will decrease Lantus. * Will also loosen CHO ratio slightly to prevent hypoglycemia * OK to continue metformin * Spoke w Dr. Toledo - plans to discharge today. Believes patient will be able to accommodate fixed-dose Novolog AC. See recommendations below. PLAN FOR INPATIENT GLYCEMIC CONTROL: * Continue metformin 1 g po BID * Decrease basal insulin with LANTUS 10 units SQ BID (1/2 dose for BSG < 100 mg/ dL) * Correctional Insulin with NOVOLOG per scale ACHS or Q6hrs while NPO * Goal Range: Low 110 mg/dL - High 140 mg/dL * Correction Factor: 25 mg/dL/unit * Loosen Nutritional / Prandial insulin per carb ratio of 1 unit per 6 grams CHO consumed Recommendations for outpatient management This patient will require close outpatient monitoring of BSG's. For now, recommend the following while patient is on prednisone 30 mg daily * Continue outpatient metformin and glipizide * Increase Lantus to 8 units SC BID * Add Novolog 6 units AC * Check BSG's ACHS and record values. Need for sliding scale to be determined by outpatient provider. * Call provider for any BSG less than 70 mg/dL or greater than 350 mg/dL * Will require significant changes in regimen if/when prednisone tapered * Please note that the plan above was derived based on current level of insulin resistance and hospital stress. These recommendations are appropriate for inpatient admission only. Plan of care upon discharge will need to be reassessed to avoid potential outpatient hypo/hyperglycemia. Thank you.
[2016-08-18] MEDS ORDERED: NVLGI/PEN SC (12:38)
[2016-08-18] MEDS ORDERED: PRED10TA PO (12:38)
[2016-08-18] MEDS ORDERED: LOSA1TAB PO (12:38)
[2016-08-18] MEDS ORDERED: INSDGIPEN SC (12:38)
--- NOTE | 2016-08-18 12:51 | Discharge Instructions ---
Discharge Instructions Date of Service Aug 18, 2016. Admission Reason for Admission: Hypoxia, Sob Discharge Discharge Diagnosis / Problem: sob, flu, acute bronchitis Discharge Goals Goal(s): Decrease discomfort, Improve function Activity Recommendations Activity Limitations: resume your previous activity . Instructions / Follow-Up Instructions / Follow-Up FOLLOWUP WITH FAMILY DOCTOR ON August AT 1:20PM. FOLLOWUP WITH PULMONARY IN 2-3 WEEKS. FOLLOWUP WITH CARDIOLOGY IN 2-3 WEEKS DISCHARGING ON PREDNISONE 30MG PO DAILY FOR INTERSTITIAL LUNG DISEASE. FOLLOWUP WITH PULMONARY FOR TAPERING OF PREDNISONE. PULMONARY IN THE [facility] PATIENT MAY BENEFIT FROM 1-2 MONTHS OF PREDNISONE 30MG DAILY AND THEN TAPER OUT PATIENT WITH PATIENTS FURNACE PUNCHER.PULMONARY FUNCTION TEST PER PULMONARY. ADJUSTING INSULIN PATIENT IS GETTING DISCHARGED ON PREDNISONE IT CAN CAUSE SUGARS TO GO HIGH. NEEDS CLOSE FOLLOWUP WITH FAMILY DOCTOR FOR FURTHER ADJUSTMENTS. WHEN PREDNISONE IS TAPERED INSULIN SHOWED BE TAPERED BACK PER FAMILY DOCTOR. LOSARTAN DOSE ( BLOOD PRESSURE MEDICATION) DOSE DECREASED TO 25MG DAILY BLOOD PRESSURE IS RUNNING ON LOWER SIDE IN HOSPITAL. FOLLOWUP BLOOD PRESSURE WITH FAMILY DOCTOR AND OR CARDIOLOGY. DISCHARGE INSULIN REGIMEN: LANTUS (LONG ACTING INSULIN) 8 UNITS TWICE DAILY. NOVOLOG(SHORT ACTING INSULIN) 6 UNITS THREE TIMES DAILY BEFORE MEALS. SKIP NOVOLOG INSULIN WHEN SKIPPING MEALS. TO CHECK BLOOD SUGARS FOUR TIMES DAILY BEFORE BREAKFAST, LUNCH AND DINNER AND BEFORE GOING TO SLEEP AND NOTE IN A LOG BOOK TO SHOW IT TO FAMILY DOCTOR FOR FURTHER ADJUSTMENT IN INSULIN. PLEASE CALL FAMILY DOCTOR IF BLOOD SUGARS LESS THAN 70 OR GREATER THAN 350. IF BLOOD SUGARS LESS THAN 70 PLEASE DRINK ORANGE JUICE OR TAKE SUGAR/GLUCOSE TABLETS AND CALL FAMILY DOCTOR. Current Hospital Diet Patient's current hospital diet: Diabetes Type 2 Diet Discharge Diet Recommended Diet: AHA Diet (Heart Healthy), Diabetes Type 2 Diet Pending Studies Studies pending at discharge: no Laboratory Results Hemoglobin A1c Test 08/16/16 06:38 Range/Units Estimated Average Glucose 148 mg/dl Hemoglobin A1c 6.8 H 4.5-5.6 % Medical Emergencies . Who to Call and When: Medical Emergencies: If at any time you feel your situation is an emergency, please call 911 immediately. . Non-Emergent Contact Non-Emergency issues call your: Primary Care Provider . . "Provider Documentation" section prepared by Yoandy Toledo. VTE Core Measure Inpt VTE Proph given/why not?: Unfractionated heparin SQ
[2016-08-18] MEDS ORDERED: PRLSR20 PO (12:59)
[2016-08-18] MEDS ORDERED: GUAIFENESIN/CODEINE 100MG/10MG 5ML UDC PO PRN (13:00)
[2016-08-18] MEDS ORDERED: BENZ100C7 PO (13:01)
[2016-08-18] MEDS ORDERED: LOSARTAN POTASSIUM 25 MG TAB PO STA (13:02)
[2016-08-18 13:24] VITALS: BP 134/68; PULSE 101; TEMP 36.3; O2SAT 96
--- NOTE | 2016-08-18 18:14 | Progress Note ---
Internal Med Progress Note Date of Service: Aug 18, 2016. Provider Documentation: SUBJECTIVE: sitting on the chair comfortably family in room has some cough no sob no fevers ok to go home OBJECTIVE: Vital Signs-as noted below Exam: General-alert and oriented x 3 Not in distress. Old and frail ENT-normal hearing Neck-no neck masses Lungs-cta b/l no wheezing no crackles Heart-s1 and s2 heard regular rate and rhythm no murmurs' Abdomen-soft bowel sounds present non tender no distension Extremities-no edema no erythema Neuro-alert and awake moves extremities Lab data as noted below. ASSESSMENT & PLAN: ACUTE ON CHRONIC RESPIRATORY FAILURE Possibly due to acute bronchitis in setting of interstitial lung disease/ pulmonary fibrosis Influenza a positive Was hypoxic to 86% on RA; not on home O2 CXR- findings of interstitial lung disease with pulmonary fibrosis, no infiltrate CTA chest- no evidence for major central PE, on empiric doxycycline, Xopenex-Atrovent nebs Continue Dulera Supplemental O2 per protocol Consulted pulmonary and appreciate inputs tapering steroids improving, will continue same plan for to d/c on prednisone 30mg daily for one to two months and taper as per pulmonary stable f/u with pcp and pulmonary HYPONATREMIA improving with gentle fluids. resolved FAWAD Creat increased to 1.5 from baseline 1.2-1.3 holding losartan Gentle IVF's resolved will f/u labs NONSPECIFIC EKG CHANGES History of CAD; prior echo 11/2015- EF 55%, mild-mod mitral and aortic insufficiency, mild tricuspid and pulmonic insufficiency, dilated aortic root 4.[address] depressions in V3-V6 resolved on repeat EKG serial ce negative asymptomatic Continue aspirin and statin Follows with Dr. Kong PAROXYSMAL ATRIAL FIBRILLATION on diltiazem Not on anticoagulation HYPERTENSION BP is stable Losartan on hold for FAWAD bp stable off of losartan cut back on losartan to 25mg on discharge f/u with pcp and cardiology DM TYPE 2 Holding metformin and glipizide Continue Lantus Insulin sliding scale coverage hyperglycemia from steroids discharged on Lantus to 8units bid, novolog 6units with each meals and continue po meds advised to check bloods sugars four times daily needs close f/u with pcp insulin needs to be tapered when tapering steroids HYPOTHYROIDISM normal TSH on levothyroxine DYSLIPIDEMIA Continue statin MALNUTRITION/ WEIGHT LOSS Started boost glycemic control Consulted fly winder Discharged home Vital Signs: Date Time Temp Pulse Resp B/P Pulse Ox O2 Delivery O2 Flow Rate FiO2 08/18/16 13:24 36.3 101 20 96 Room Air 08/18/16 08:15 Room Air 08/18/16 08:02 36.3 101 20 134/68 96 08/18/16 00:17 36.4 86 20 130/62 96 Room Air 08/18/16 00:00 Room Air 08/17/16 20:00 Room Air Lab Results: Results Past 24 Hours Test 08/17/16 19:46 08/18/16 07:26 08/18/16 11:13 Range/Units Bedside Glucose 187 70 76 70-99 mg/dl
--- NOTE | 2016-08-18 18:22 | Discharge Summary ---
Discharge Summary Date of Service Aug 18, 2016. Discharge Summary Admission Date: Aug 13, 2016 at 13:41 Discharge Date: Aug 18, 2016 Discharge Disposition: Home Principal Diagnosis: INFLUENZA A ACUTE BRONCHITIS INTERSTITIAL LUNG DISEASE FLARE Secondary Diagnoses/Problems: (1) BPH (benign prostatic hypertrophy) Status: Chronic (2) DM type 2 (diabetes mellitus, type 2) Status: Chronic (3) Dyslipidemia Status: Chronic (4) History of depression Status: Chronic (5) HTN (hypertension) Status: Chronic (6) Paroxysmal atrial fibrillation Status: Chronic Procedures: CTA CHEST: 1. Limited study due to patient restaurant somatic motion. 2. Diffuse parenchymal fibrosis and interstitial change with underlying Baseline emphysematous change. 3. No evidence for major central embolus. 4. Nondiagnostic evaluation of the third order pulmonary arterial vessels ECHO: * Ejection Fraction = 55-60%. * The base inferior and posterior anna are hypokinetic, otherwise, normal wall motion. * Grade I diastolic dysfunction, (abnormal relaxation pattern). * The right coronary cusp is moderately calcified with restricted openning. Cannot exclude partial fusion of the right and left coronary cusps. * Aortic stenosis is absent. * Mild aortic regurgitation. * There is mild mitral regurgitation. * There is mild tricuspid regurgitation. * Moderate aortic root dilatation. * Mildly dilated ascending aorta. Consultations: PULMONARY Medication Reconciliation New Medications: Insulin Aspart (Novolog Flexpen) 100 Units/Ml Inj 6 UNITS SC AC, #1 2 Refills Insulin Glargine (Lantus Solostar) 100 Unit/Ml Inj 8 UNITS SC BID, #1 2 Refills Losartan Potassium (Cozaar) 25 Mg Tab 1 TAB PO DAILY for 30 Days, #30 TAB 2 Refills Omeprazole (Prilosec) 20 Mg Capcr 20 MG PO DAILY for 30 Days, #30 CAP 2 Refills Prednisone Tab (Prednisone) 10 Mg Tab 30 MG PO DAILY for 30 Days, #90 TAB 1 Refill Benzonatate (Benzonatate) 100 Mg Cap 100 MG PO TID PRN for Cough, #30 CAP Continued Medications: Aspirin (Aspirin Ec) 81 Mg Tab 81 MG PO DAILY Atorvastatin (Lipitor) 10 Mg Tab 10 MG PO Q2D, 0 Refills Take 20 mg by mouth every other night. Diltiazem Hcl (Diltiazem Hcl) 180 Mg Capcr 180 MG PO DAILY Fluticasone Propionate (Nasal) (Flonase Allergy Relief) 50 Mcg/Act Spr 2 SPRAYS SUNIL HS Glipizide (Glucotrol) 5 Mg Tab 5 MG PO BID, TAB Levothyroxine Sodium (Synthroid) 50 Mcg Tab 50 MCG PO QAM Metformin Hcl (Glucophage Ext Rel) 1,000 Mg Tab 1000 MG PO BID, TAB Mirtazapine (Mirtazapine) 15 Mg Tab 30 MG PO HS Mometasone Furoate-Formoterol (Dulera 100/5 Mcg) 1 Aer Aer 2 PUFFS INH BID for 30 Days, #13 GM 2 Refills Multivitamin (Multivitamin) Tab 1 TAB PO DAILY, 0 Refills Tamsulosin Hcl (Flomax) 0.4 Mg Cap 0.4 MG PO QPM, CAP [Proair Hfa] () 2 PUFF PO Q4 PRN for SOB/Wheezing Discontinued Medications: Insulin Glargine (Lantus Solostar) 100 Unit/Ml Inj 6 UNITS SC BID, PEN Losartan Potassium (Cozaar) 100 Mg Tab 100 MG PO DAILY, TAB Admission Information HPI (per Admitting provider): This is an 89 year old male with PMH of interstitial lung disease, paroxysmal Afib, CAD, HTN, DM type 2, and other problems listed below who presents to the ED with increasing SOB. Patient was treated as outpatient for LLL PNA with Levaquin in May 2016 and was feeling back to baseline. Repeat CXR as outpatient on 08/06/16 showed ILD progressive from 2010. Then 3 days ago developed worsening of cough and dyspnea from baseline. Dyspnea occurs with minimal exertion i.e. getting dressed. At baseline was JEAN-BAPTISTE ambulating across the room. No dyspnea at rest. Cough is productive of thick clear sputum. He reports associated chills, rhinorrhea, lightheadedness with standing, generalized weakness. Ambulates unassisted. He reports posttussive vomiting x 1 a few days ago. Eating minimal food due to poor appetite for 1+ years. Has lost weight. Trying to drink a lot of water. He denies fever, sweats, orthopnea, chest pain, palpitations, syncope, abdominal pain, diarrhea, dysuria, frequency , rash, myalgias, calf pain, edema. No specific sick contact but has visited in custodial. No recent hospitalization. Patient follows with Mallory Quintero C[facility] for pulmonology. Denies hx of VTE. Physical Exam (per Admitting): General Appearance: + thin, + pertinent finding (very pleasant alert 89 year old male, not in distress, son and daughter in law at bedside) Head: normocephalic, atraumatic Eyes: normal inspection, PERRL, sclerae normal ENT: hearing grossly normal, TMs normal, pharynx normal, + pertinent finding (dry oral mucosa) Neck: supple, no JVD, trachea midline Respiratory/Chest: no respiratory distress, no accessory muscle use, + crackles (right mid lung and right base), + pertinent finding (no wheezing) Cardiovascular: regular rate, rhythm, no murmur Abdomen/GI: normal bowel sounds, non tender, soft Extremities/Musculoskelatal: no calf tenderness, normal capillary refill, no pedal edema Neurologic/Psych: alert, normal mood/affect, oriented x 3, + pertinent finding (grossly nonfocal. no facial droop. speech is clear. strength 5/5 all extremities.) Skin: normal color, warm/dry Hospital Course ACUTE ON CHRONIC RESPIRATORY FAILURE Possibly due to acute bronchitis in setting of interstitial lung disease/ pulmonary fibrosis Influenza a positive Was hypoxic to 86% on RA; not on home O2 CXR- findings of interstitial lung disease with pulmonary fibrosis, no infiltrate CTA chest- no evidence for major central PE, on empiric doxycycline, Xopenex-Atrovent nebs Continue Dulera Supplemental O2 per protocol Consulted pulmonary and appreciate inputs tapering steroids improving, will continue same plan for to d/c on prednisone 30mg daily for one to two months and taper as per pulmonary stable f/u with pcp and pulmonary HYPONATREMIA improving with gentle fluids. resolved FAWAD Creat increased to 1.5 from baseline 1.2-1.3 holding losartan Gentle IVF's resolved will f/u labs NONSPECIFIC EKG CHANGES History of CAD; prior echo 11/2015- EF 55%, mild-mod mitral and aortic insufficiency, mild tricuspid and pulmonic insufficiency, dilated aortic root 4.[address] depressions in V3-V6 resolved on repeat EKG serial ce negative asymptomatic Continue aspirin and statin Follows with Dr. Kong PAROXYSMAL ATRIAL FIBRILLATION on diltiazem Not on anticoagulation HYPERTENSION BP is stable Losartan on hold for FAWAD bp stable off of losartan cut back on losartan to 25mg on discharge f/u with pcp and cardiology DM TYPE 2 Holding metformin and glipizide Continue Lantus Insulin sliding scale coverage hyperglycemia from steroids discharged on Lantus to 8units bid, novolog 6units with each meals and continue po meds advised to check bloods sugars four times daily needs close f/u with pcp insulin needs to be tapered when tapering steroids HYPOTHYROIDISM normal TSH on levothyroxine DYSLIPIDEMIA Continue statin MALNUTRITION/ WEIGHT LOSS Started boost glycemic control Consulted clinical services professional Discharged home Total time spent on discharge = 40MINUTES This includes examination of the patient, discharge planning, medication reconciliation, and communication with other providers. Discharge Instructions Discharge Instructions Date of Service Aug 18, 2016. Admission Reason for Admission: Hypoxia, Sob Discharge Discharge Diagnosis / Problem: sob, flu, acute bronchitis Discharge Goals Goal(s): Decrease discomfort, Improve function Activity Recommendations Activity Limitations: resume your previous activity . Instructions / Follow-Up Instructions / Follow-Up FOLLOWUP WITH FAMILY DOCTOR ON August AT 1:20PM. FOLLOWUP WITH PULMONARY IN 2-3 WEEKS. FOLLOWUP WITH CARDIOLOGY IN 2-3 WEEKS DISCHARGING ON PREDNISONE 30MG PO DAILY FOR INTERSTITIAL LUNG DISEASE. FOLLOWUP WITH PULMONARY FOR TAPERING OF PREDNISONE. PULMONARY IN THE [facility] OF [facility] PATIENT MAY BENEFIT FROM 1-2 MONTHS OF PREDNISONE 30MG DAILY AND THEN TAPER OUT PATIENT WITH PATIENTS BELT LOOP CUTTER.PULMONARY FUNCTION TEST PER PULMONARY. ADJUSTING INSULIN PATIENT IS GETTING DISCHARGED ON PREDNISONE IT CAN CAUSE SUGARS TO GO HIGH. NEEDS CLOSE FOLLOWUP WITH FAMILY DOCTOR FOR FURTHER ADJUSTMENTS. WHEN PREDNISONE IS TAPERED INSULIN SHOWED BE TAPERED BACK PER FAMILY DOCTOR. LOSARTAN DOSE ( BLOOD PRESSURE MEDICATION) DOSE DECREASED TO 25MG DAILY BLOOD PRESSURE IS RUNNING ON LOWER SIDE IN HOSPITAL. FOLLOWUP BLOOD PRESSURE WITH FAMILY DOCTOR AND OR CARDIOLOGY. DISCHARGE INSULIN REGIMEN: LANTUS (LONG ACTING INSULIN) 8 UNITS TWICE DAILY. NOVOLOG(SHORT ACTING INSULIN) 6 UNITS THREE TIMES DAILY BEFORE MEALS. SKIP NOVOLOG INSULIN WHEN SKIPPING MEALS. TO CHECK BLOOD SUGARS FOUR TIMES DAILY BEFORE BREAKFAST, LUNCH AND DINNER AND BEFORE GOING TO SLEEP AND NOTE IN A LOG BOOK TO SHOW IT TO FAMILY DOCTOR FOR FURTHER ADJUSTMENT IN INSULIN. PLEASE CALL FAMILY DOCTOR IF BLOOD SUGARS LESS THAN 70 OR GREATER THAN 350. IF BLOOD SUGARS LESS THAN 70 PLEASE DRINK ORANGE JUICE OR TAKE SUGAR/GLUCOSE TABLETS AND CALL FAMILY DOCTOR. Current Hospital Diet Patient's current hospital diet: Diabetes Type 2 Diet Discharge Diet Recommended Diet: AHA Diet (Heart Healthy), Diabetes Type 2 Diet Pending Studies Studies pending at discharge: no Laboratory Results Hemoglobin A1c Test 08/16/16 06:38 Range/Units Estimated Average Glucose 148 mg/dl Hemoglobin A1c 6.8 H 4.5-5.6 % Medical Emergencies . Who to Call and When: Medical Emergencies: If at any time you feel your situation is an emergency, please call 911 immediately. . Non-Emergent Contact Non-Emergency issues call your: Primary Care Provider . . "Provider Documentation" section prepared by Yoandy Toledo. VTE Core Measure Inpt VTE Proph given/why not?: Unfractionated heparin SQ
[2016-09-17] MEDS ORDERED: ATOR10TA82 PO (08:32)
[2016-09-17] MEDS ORDERED: MULT-506 PO (08:32)
[2016-09-17] MEDS ORDERED: SYN50 PO (11:18)
[2016-09-17] MEDS ORDERED: RMR15 PO (11:18)
[2016-09-17] MEDS ORDERED: GLIP5TAB3 PO (11:18)
[2016-09-17] MEDS ORDERED: DILT180C70 PO (11:19)
[2016-09-17] MEDS ORDERED: METF1TAB53 PO (11:33)
[2016-09-17] MEDS ORDERED: ASPI81TA28 PO (11:33)
[2016-09-17] MEDS ORDERED: TAMS0.4C38 PO (11:33)
[2016-09-20] MEDS ORDERED: INSDGIPEN SC (10:50)
[2016-09-20] MEDS ORDERED: NVLGIPEN INJ (10:50)
== END 2016-08-18 13:45 | disposition home or self-care (01) | DRG 196 ==
LOC: CANRESERV → ENRESERVTM → ENRESERVDT → C.EDB 10:54 → C.EDINP 13:41 → C.2T 16:06 → C.MS2W 08-14 10:51
PROVIDERS: ADMIT Internal Medicine; ATTEND Internal Medicine
DX: J84.10 Pulmonary fibrosis, unspecified (principal); J96.21 Acute and chronic respiratory failure with hypoxia; J44.0 Chronic obstructive pulmonary disease with (acute) lower respiratory infection; N17.9 Acute kidney failure, unspecified; E87.1 Hypo-osmolality and hyponatremia; E46 Unspecified protein-calorie malnutrition; J20.9 Acute bronchitis, unspecified; I25.10 Atherosclerotic heart disease of native coronary artery without angina pectoris; I10 Essential (primary) hypertension; F32.9 Major depressive disorder, single episode, unspecified; I48.0 Paroxysmal atrial fibrillation; E11.65 Type 2 diabetes mellitus with hyperglycemia; E78.5 Hyperlipidemia, unspecified; N40.0 Benign prostatic hyperplasia without lower urinary tract symptoms; E03.9 Hypothyroidism, unspecified; Z79.4 Long term (current) use of insulin; Z82.49 Family history of ischemic heart disease and other diseases of the circulatory system; Z79.82 Long term (current) use of aspirin; Z66 Do not resuscitate

== ENCOUNTER 2016-09-17 12:34 | Inpatient (IN) | payer OTHER ==
[~2016-09-17] VITALS: Ht 162.6 cm; Wt 46.9 kg
[~2016-09-17 12:34] MED LIST changes: -ASPEC81 PO; +ASPI81TA28 PO; +ATOR10TA82 PO; +BENZ100C7 PO; +DILT180C70 PO; -FLM4 PO; -GLCSR500 PO; +GLIP5TAB3 PO; -INSDGI SC; +INSDGIPEN SC; +LOSA1TAB PO; +METF1TAB53 PO; +MULT-506 PO; +NVLGI/PEN SC; +PRED10TA PO; +PRLSR20 PO; +RMR15 PO; +SYN50 PO; +TAMS0.4C38 PO
[2016-09-17] MEDS ORDERED: SODIUM CHLORIDE 0.9% 500ML 500 ML IV STA (12:47)
[2016-09-17 13:16] LABS: URINE APPEARANCE CLEAR (CLEAR); URINE BILIRUBIN NEG (NEG); URINE COLOR YELLOW; URINE NITRITE NEG (NEG); URINE SPECIFIC GRAVITY 1.023 (1.000-1.030); UROBILINOGEN NEG (NEG)
[2016-09-17 13:17] LABS: MANUAL MICROSCOPIC REQUIRED? NO; REVIEW REQ? NO
--- NOTE | 2016-09-17 13:17 | EMERGENCY ROOM VISIT NOTE ---
History Report prepared by Lexi: Linda Escamilla Under the Supervision of: Dr. Danny Limon D.O. First contact with patient: 12:38 Chief Complaint: HYPOGLYCEMIA Stated Complaint: HYPOGLYCEMIA History of Present Illness The patient is an 89 year old male who presents to the Emergency Room with complaints of persistent confusion starting this morning. He presents to the ED by EMS. He received dextrose IV on the way in. He was found by his daughter-in- law acting strangely. He lives alone, but his [id number] comes to give him his medications in the morning. She does not administer his insulin. The patient had been on prednisone which caused his sugars to become elevated. He had been taking extra insulin to try to lower his sugars. He reports feeling funny in the head and being unable to get his thoughts together recently. He had suspicions that his blood sugar was low. He had been cold and shaky recently. Last night he woke up with sweats. His symptoms worsen when he stands up. He denies any cough, urinary symptoms, headache, nausea, vomiting, chest pain, SOB, leg pain, leg swelling, or leg weakness. He denies any SOB or chest pain with exertion. He states that he feels a bit woozy currently. He has been losing weight recently. He has been preparing his own meals and acknowledges that he might not be eating enough. He has a history of pulmonary fibrosis and a heart valve problem. He is not on oxygen at home. He denies any history of OK or stroke. He is not on blood thinners. He denies any tobacco or alcohol use. Source of History: patient Onset: this morning Position: other (global) Quality: other (confusion) Timing: other (persistent) Modifying Factors (Worsening): other (standing) Associated Symptoms: + chills, + diaphoresis, No SOB, No chest pain, No cough, No headache, No nausea, No urinary symptoms, No vomiting Note: Pt reports feeling unable to get his thoughts together, shakiness, weight loss. Pt denies leg pain, swelling, or weakness. Review of Systems See HPI for pertinent positives & negatives. A total of 10 systems reviewed and were otherwise negative. Past Medical & Surgical Medical Problems: (1) BPH (benign prostatic hypertrophy) (2) CAD (coronary artery disease) (3) DM type 2 (diabetes mellitus, type 2) (4) Dyslipidemia (5) History of depression (6) HTN (hypertension) (7) Paroxysmal atrial fibrillation Surgical Problems: (1) H/O inguinal hernia repair Family History Gallbladder disease Social History Smoking Status: Never Smoker Drug Use: none Marital Status: Occupation Status: retired Current/Historical Medications Scheduled Aspirin (Aspirin Ec), 81 MG PO DAILY Atorvastatin (Lipitor), 10 MG PO Q2D Diltiazem Hcl (Diltiazem Hcl), 180 MG PO DAILY Fluticasone Propionate (Nasal) (Flonase Allergy Relief), 2 SPRAYS SUNIL HS Glipizide (Glucotrol), 5 MG PO BID Insulin Aspart (Novolog Flexpen), 6 UNITS SC AC Insulin Glargine (Lantus Solostar), 8 UNITS SC BID Levothyroxine Sodium (Synthroid), 50 MCG PO QAM Losartan Potassium (Cozaar), 1 TAB PO DAILY Metformin Hcl (Glucophage Ext Rel), 500 MG PO BID Mirtazapine (Mirtazapine), 30 MG PO HS Mometasone Furoate-Formoterol (Dulera 100/5 Mcg), 2 PUFFS INH BID Multivitamin (Multivitamin), 1 TAB PO DAILY Omeprazole (Prilosec), 20 MG PO DAILY Prednisone Tab (Prednisone), 20 MG PO DAILY Tamsulosin Hcl (Flomax), 0.4 MG PO QPM Scheduled PRN Albuterol Sulfate (Proair Respiclick), 2 PUFFS INH Q4 PRN for SOB/Wheezing Allergies Coded Allergies: No Known Allergies (Unverified , 06/07/16) Physical Exam Vital Signs Date Time Temp Pulse Resp B/P Pulse Ox O2 Delivery O2 Flow Rate FiO2 09/17/16 15:00 123 18 124/61 98 Room Air 09/17/16 13:59 119 18 107/62 96 Room Air 09/17/16 13:03 130 09/17/16 12:56 125 112/64 129 110/52 135 69/45 09/17/16 12:49 94 Room Air 09/17/16 12:43 37.1 128 18 120/59 94 Room Air Physical Exam GENERAL: Patient is frail and somewhat listless appearing. Patient does not appear to be in pain or uncomfortable. EYES: The conjunctivae are clear. The pupils are round and reactive. EARS, NOSE, MOUTH AND THROAT: The nose is without any evidence of any deformity. Mucous membranes are dry tongue is midline NECK: The neck is nontender and supple. RESPIRATORY: Rales in all lung dao , no tachypnea or conversational dyspnea noted. CARDIOVASCULAR: Tachycardic rate with ectopy noted to auscultation. No definite murmurs noted to auscultation. GASTROINTESTINAL: The abdomen is soft. Bowel sounds are present in all quadrants. Abdomen is nontender MUSCULOSKELETAL/EXTREMITIES: There is no evidence of gross deformity full range of motion is noted in the hips and shoulders SKIN: Pale and dry, no edema noted. NEUROLOGIC: Patient is awake alert and oriented x3, no facial droop noted, strength symmetric but diminished. Medical Decision & Procedures ER Provider Diagnostic Interpretation: X-ray results as stated below per interpretation by me and the radiologist. Radiology results as stated below per my review and radiologist interpretation: CHEST ONE VIEW PORTABLE CLINICAL HISTORY: EVALUATE ALTERED MENTAL STATUS/WEAKNESS COMPARISON STUDY: 08/13/2016 FINDINGS: Findings of stable diffuse interstitial fibrotic change. No well-defined or superimposed infiltrate. Stable chronic apical fibrotic and fibrocalcific change. No evidence for cardiac enlargement. IMPRESSION: Chronic parenchymal fibrosis. No acute or superimposed process. Electronically signed by: Bassam Diaz M.D. 09/17/2016 1:21 PM Dictated Date/Time: 09/17/2016 1:[address] SCAN OF THE BRAIN WITHOUT IV CONTRAST CLINICAL HISTORY: Weakness. Change in mental status. COMPARISON STUDY: No priors. TECHNIQUE: Unenhanced axial CT scan of the brain is performed from the vertex to the skull base. CT DOSE: 614.27 mGy.cm FINDINGS: Brain parenchyma: There are age-related involutional changes noting mild patchy subcortical and periventricular microangiopathic change. There is no hemorrhage, mass effect, or evidence of acute territorial ischemia by CT criteria. Hurst-white matter is preserved. No extra-axial fluid collection is seen. Ventricles, sulci, cisterns: Prominent secondary to involutional change. Intracranial vasculature: There is atherosclerotic calcification of the cavernous carotid arteries. Calvarium: Unremarkable. Sinuses and mastoids: The visualized paranasal sinuses are clear. The mastoid air cells are well pneumatized. Orbits: The bony orbits are grossly intact. There is a right ocular lens implant. IMPRESSION: There is no hemorrhage, mass effect, or evidence of acute territorial ischemia by CT criteria. Electronically signed by: Isaac Scott M.D. 09/17/2016 1:57 PM Dictated Date/Time: 09/17/2016 1:55 PM Laboratory Results 09/17/16 13:15 Red Blood Count 4.06, Mean Corpuscular Volume 92.1, Mean Corpuscular Hemoglobin 30.3, Mean Corpuscular Hemoglobin Concent 32.9, Mean Platelet Volume 9.9, Neutrophils (%) (Auto) 93.9, Lymphocytes (%) (Auto) 3.2, Monocytes (%) (Auto) 1.7, Eosinophils (%) (Auto) 0.3, Basophils (%) (Auto) 0.0, Neutrophils # (Auto) 9.40, Lymphocytes # (Auto) 0.32, Monocytes # (Auto) 0.17, Eosinophils # (Auto) 0.03, Basophils # (Auto) 0.00 09/17/16 13:15 Test 09/17/16 13:00 09/17/16 13:15 Urine Color YELLOW Urine Appearance CLEAR (CLEAR) Urine pH 5.0 (4.5-7.5) Urine Specific [place] 1.023 (1.000-1.030) Urine Protein TRACE (NEG) Urine Glucose (UA) 2+ (NEG) Urine Ketones NEG (NEG) Urine Occult Blood NEG (NEG) Urine Nitrite NEG (NEG) Urine Bilirubin NEG (NEG) Urine Urobilinogen NEG (NEG) Urine Leukocyte Esterase NEG (NEG) Urine WBC (Auto) 1-5 /hpf (0-5) Urine RBC (Auto) 0-4 /hpf (0-4) Urine Hyaline Casts (Auto) 1-5 /lpf (0-5) Urine Epithelial Cells (Auto) 10-20 /lpf (0-5) Urine Bacteria (Auto) NEG (NEG) White Blood Count 10.01 K/uL (4.8-10.8) Red Blood Count 4.06 M/uL (4.7-6.1) Hemoglobin 12.3 g/dL (14.0-18.0) Hematocrit 37.4 % (42-52) Mean Corpuscular Volume 92.1 fL (80-100) Mean Corpuscular Hemoglobin 30.3 pg (25-34) Mean Corpuscular Hemoglobin Concent 32.9 g/dl (32-36) Platelet Count 106 K/uL (130-400) Mean Platelet Volume 9.9 fL (7.4-10.4) Neutrophils (%) (Auto) 93.9 % Lymphocytes (%) (Auto) 3.2 % Monocytes (%) (Auto) 1.7 % Eosinophils (%) (Auto) 0.3 % Basophils (%) (Auto) 0.0 % Neutrophils # (Auto) 9.40 K/uL (1.4-6.5) Lymphocytes # (Auto) 0.32 K/uL (1.2-3.4) Monocytes # (Auto) 0.17 K/uL (0.11-0.59) Eosinophils # (Auto) 0.03 K/uL (0-0.5) Basophils # (Auto) 0.00 K/uL (0-0.2) RDW Standard Deviation 56.0 fL (36.4-46.3) RDW Coefficient of Variation 16.6 % (11.5-14.5) Immature Granulocyte % (Auto) 0.9 % Immature Granulocyte # (Auto) 0.09 K/uL (0.00-0.02) Prothrombin Time 10.7 SECONDS (9.0-12.0) Prothromb Time International Ratio 1.0 (0.9-1.1) Activated Partial Thromboplast Time 23.5 SECONDS (21.0-31.0) Partial Thromboplastin Ratio 0.9 Anion Gap 5.0 mmol/L (3-11) Est Creatinine Clear Calc Drug Dose 29.6 ml/min Estimated GFR () 61.8 Estimated GFR (Non- 53.3 BUN/Creatinine Ratio 30.2 (10-20) Calcium Level 7.9 mg/dl (8.5-10.1) Magnesium Level 1.8 mg/dl (1.8-2.4) Total Bilirubin 0.5 mg/dl (0.2-1) Direct Bilirubin 0.1 mg/dl (0-0.2) Aspartate Amino Transf (AST/SGOT) 18 U/L (15-37) Alanine Aminotransferase (ALT/SGPT) 32 U/L (12-78) Alkaline Phosphatase 70 U/L (45-117) Total Creatine Kinase 53 U/L (39-308) Pro-B-Type Natriuretic Peptide 940 pg/ml (0-1800) Total Protein 5.3 gm/dl (6.4-8.2) Albumin 2.4 gm/dl (3.4-5.0) Thyroid Stimulating Hormone (TSH) 0.814 uIu/ml (0.300-4.500) Laboratory results per my review. Medications Administered Medications (Trade) Dose Ordered Sig/Rachel Route Start Time Stop Time Status Last Admin Dose Admin Sodium Chloride (Nss 500ml) 500 ml @ 999 mls/hr Q31M STAT IV 09/17/16 12:47 09/17/16 13:17 DC 09/17/16 13:07 999 MLS/HR ECG Indication: altered mental status Rate (beats per minute): 130 Rhythm: sinus tachycardia Findings: PAC, other (poor baseline noted) Comparison ECG Date: 13-Aug-2016 Change: no significant change ED Course 1240: The patient was evaluated in room A12. A complete history and physical examination were performed. 1247: NSS 500 ml @ 999 mls/hr IV. 1440: Upon reevaluation, the patient is resting comfortably. I discussed results and treatment plan with him and his family. They verbalize agreement and understanding. The patient will be evaluated for further management and care. 1451: I discussed the patient's case with Keshia Forbes PA-C [facility]ist. The patient will be evaluated for further management. Medical Decision Prior records/ancillary studies reviewed and summarized above. Nursing notes reviewed. The patient's history was concerning for confusion. Differential diagnosis: Etiologies such as metabolic, infection, hypo/hyperglycemia, electrolyte abnormalities, cardiac sources, intracerebral event, toxicologic, neurologic, as well as others were entertained. The patient is an 89-year-old male who presented to the emergency department with multiple complaints. He recently had problems where he was on steroids. Because of this he had very significant problems controlling his blood sugar. He has been having difficulty managing his insulin and had hypoglycemia today. He does take oral medications for diabetes as well as insulin. He was treated with IV dextrose prior to arrival. He also has been complaining of generalized weakness. His EKG does show sinus tachycardia. It also has a. The possible MAT. His troponin was elevated. I would wonder if this is a cardiac ischemic issue that is causing the patient's problems at this time. I discussed the patient's laboratory and radiographic studies with him. I also discussed his case with the on-call [facility] hospitalist group. Additional history was obtained from his family members. He was feeling much better after a small fluid bolus. Consults Time Called: [phone] Consulting Physician: Keshia Forbes PA-C [facility] hospitalist Returned Call: [phone] I discussed the patient's case with her. The patient will be evaluated for further management. Impression Primary Impression: Elevated troponin Additional Impressions: Tachycardia Weakness Hypoglycemia Scribe Attestation The scribe's documentation has been prepared under my direction and personally reviewed by me in its entirety. I confirm that the note above accurately reflects all work, treatment, procedures, and medical decision making performed by me. Departure Information Dispostion Being Evaluated By Hospitalist Referrals Duarte Hannah M.D. (PCP) Patient Instructions My [facility] Problem Qualifiers
--- NOTE | 2016-09-17 13:23 | DIAGNOSTIC IMAGING REPORT ---
CHEST ONE VIEW PORTABLE CLINICAL HISTORY: EVALUATE ALTERED MENTAL STATUS/WEAKNESS COMPARISON STUDY: 08/13/2016 FINDINGS: Findings of stable diffuse interstitial fibrotic change. No well-defined or superimposed infiltrate. Stable chronic apical fibrotic and fibrocalcific change. No evidence for cardiac enlargement. IMPRESSION: Chronic parenchymal fibrosis. No acute or superimposed process. Electronically signed by: Bassam Diaz M.D. 09/17/2016 1:21 PM Dictated Date/Time: 09/17/2016 1:20 PM
[2016-09-17 13:38] LABS: COMPLETE YES; EOS % 0.3 %; HEMATOCRIT 37.4 % (42-52); IG% 0.9 %; LYMPH % 3.2 %; LYMPH ABS # 0.32 K/uL (1.2-3.4); MEAN CELL VOLUME 92.1 fL (80-100); MEAN CORPUSCULAR HEMOGLOBIN 30.3 pg (25-34); MEAN CORPUSCULAR HGB CONC 32.9 g/dl (32-36); MEAN PLATELET VOLUME 9.9 fL (7.4-10.4); MONO % 1.7 %; NEUT % 93.9 %; PLATELET COUNT 106 K/uL (130-400); RED BLOOD COUNT 4.06 M/uL (4.7-6.1); WHITE BLOOD COUNT 10.01 K/uL (4.8-10.8)
[2016-09-17] MEDS ORDERED: ALBU18002 INH (13:38)
[2016-09-17] MEDS ORDERED: INSDGIPEN SC (13:44)
[2016-09-17] MEDS ORDERED: PRED20TA PO (13:44)
[2016-09-17 13:55] LABS: PARTIAL THROMBOPLASTIN RATIO 0.9; PROTHROMBIN TIME (PATIENT) 10.7 SECONDS (9.0-12.0)
--- NOTE | 2016-09-17 13:58 | DIAGNOSTIC IMAGING REPORT ---
CT SCAN OF THE BRAIN WITHOUT IV CONTRAST CLINICAL HISTORY: Weakness. Change in mental status. COMPARISON STUDY: No priors. TECHNIQUE: Unenhanced axial CT scan of the brain is performed from the vertex to the skull base. CT DOSE: 614.27 mGy.cm FINDINGS: Brain parenchyma: There are age-related involutional changes noting mild patchy subcortical and periventricular microangiopathic change. There is no hemorrhage, mass effect, or evidence of acute territorial ischemia by CT criteria. Hurst-white matter is preserved. No extra-axial fluid collection is seen. Ventricles, sulci, cisterns: Prominent secondary to involutional change. Intracranial vasculature: There is atherosclerotic calcification of the cavernous carotid arteries. Calvarium: Unremarkable. Sinuses and mastoids: The visualized paranasal sinuses are clear. The mastoid air cells are well pneumatized. Orbits: The bony orbits are grossly intact. There is a right ocular lens implant. IMPRESSION: There is no hemorrhage, mass effect, or evidence of acute territorial ischemia by CT criteria. Electronically signed by: Isaac Scott M.D. 09/17/2016 1:57 PM Dictated Date/Time: 09/17/2016 1:55 PM
[2016-09-17 14:00] LABS: BUN/CREATININE RATIO 30.2 (10-20); CALCIUM 7.9 mg/dl (8.5-10.1); CREATININE 1.2 mg/dl (0.60-1.40); MAGNESIUM 1.8 mg/dl (1.8-2.4); POTASSIUM 4.5 mmol/L (3.5-5.1)
[2016-09-17] MEDS ORDERED: MOME100A INH (14:00)
[2016-09-17] MEDS ORDERED: FLUT0.15 NAE (14:00)
[2016-09-17 14:20] LABS: CKMB/CK RATIO 8.3 (0-3.0); THYROID STIMULATING HORMONE 0.814 uIu/ml (0.300-4.500)
[2016-09-17] MEDS ORDERED: ONDANSETRON INJ 2 MG/ML 2 ML VIAL IV PRN (16:00)
[2016-09-17] MEDS ORDERED: ACETAMINOPHEN 325 MG TAB PO PRN (16:00)
[2016-09-17] MEDS ORDERED: NITROGLYCERIN 0.4 MG SL PER TAB CHARGE SL PRN (16:00)
[2016-09-17] MEDS ORDERED: PRED10TA PO (16:11)
[2016-09-17 16:45] VITALS: BP 100/61; PULSE 119; TEMP 36.9; O2SAT 94; BMI 19.0
[2016-09-17] MEDS ORDERED: PHARMACY GLYCEMIC MGMT CONSULT PRN (16:53)
--- NOTE | 2016-09-17 16:53 | History and Physical ---
History & Physical Date & Time of Service: September 17, 2016 at 16:16 Chief Complaint: Hypoglycemia Primary Care Physician: Duarte Hannah M.D. 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 Pt was admitted to [facility] from 08/13-08/18 with influenza A and flare of Pulmonary Fibrosis. Pt was discharged on 30mg Prednisone daily and his Lantus was increased to 8 units BID (from 6 units BID) with addition of NovoLog 6 units with meals. Since discharge, patient has been experiencing fluctuating blood glucose. Blood glucose has ranged from 30-300. He lives alone and is very overwhelmed with insulin regimen stating he often forgets if he has taken his insulin and he is unsure when to take the NovoLog because he does not eat consistent meals throughout the day. Patient reports that his "head gets fuzzy" a lot lately. This morning, patient reports his BSG was 33 when he woke up. He ate a cookie and drank some orange juice with no improvement in BSG. Pts [id number] stopped by to check on him and found him to be weak, confused, diaphoretic and cold/shaky. When EMS arrived BSG was 40. Pt received 1 amp D50 en route and BSG upon arrival to the ED was 109. Pt denies fevers, chest pain, palpitations, SOB, wheezing, abd pain, N/V, bowel or bladder issues, LE edema , calf pain, lightheadedness/dizziness. In the ED, pt is tachy. He is afebrile with no leukocytosis. HgB 12.3. TSH WNL. Trop 0.204. EKG: no acute ischemic changes. Head CT is negative. Pt is feeling much better now. He will be admitted for further evaluation and treatment. Past Medical/Surgical History Medical Problems: (1) BPH (benign prostatic hypertrophy) Status: Chronic (2) CAD (coronary artery disease) Status: Chronic (3) DM type 2 (diabetes mellitus, type 2) Status: Chronic (4) Dyslipidemia Status: Chronic (5) History of depression Status: Chronic (6) HTN (hypertension) Status: Chronic (7) Paroxysmal atrial fibrillation Status: Chronic Surgical Problems: (1) H/O inguinal hernia repair Status: Chronic Family History Gallbladder disease Social History Smoking Status: Never Smoker Alcohol Use: none Drug Use: none Marital Status: ( at senior living ) Housing status: lives alone Occupational Status: retired Immunizations History of Influenza Vaccine: Yes History of Tetanus Vaccine?: No History of Pneumococcal: Yes History of Hepatitis B Vaccine: No Allergies Coded Allergies: No Known Allergies (Unverified , 06/07/16) Home Medications Scheduled Aspirin (Aspirin Ec), 81 MG PO DAILY Atorvastatin (Lipitor), 10 MG PO Q2D Diltiazem Hcl (Diltiazem Hcl), 180 MG PO DAILY Fluticasone Propionate (Nasal) (Flonase Allergy Relief), 2 SPRAYS SUNIL HS Glipizide (Glucotrol), 5 MG PO BID Insulin Aspart (Novolog Flexpen), 6 UNITS SC AC Insulin Glargine (Lantus Solostar), 8 UNITS SC BID Levothyroxine Sodium (Synthroid), 50 MCG PO QAM Losartan Potassium (Cozaar), 1 TAB PO DAILY Metformin Hcl (Glucophage Ext Rel), 500 MG PO BID Mirtazapine (Mirtazapine), 30 MG PO HS Mometasone Furoate-Formoterol (Dulera 100/5 Mcg), 2 PUFFS INH BID Multivitamin (Multivitamin), 1 TAB PO DAILY Omeprazole (Prilosec), 20 MG PO DAILY Prednisone Tab (Prednisone), 20 MG PO DAILY Tamsulosin Hcl (Flomax), 0.4 MG PO QPM Scheduled PRN Albuterol Sulfate (Proair Respiclick), 2 PUFFS INH Q4 PRN for SOB/Wheezing Review of Systems Constitutional: + chills, + fatigue, + sweats, + weakness, No fever Eyes: No worsening of vision ENT: No hearing loss Respiratory: No cough Cardiovascular: No chest pain, No claudication, No edema, No palpitations Abdomen: No constipation, No diarrhea, No nausea, No pain, No vomiting Musculoskeletal: No calf pain, No swelling Genitourinary - Male: No dysuria Neurologic: + weakness Psychiatric: No depression symptoms Endocrine: + fatigue Hematologic / Lymphatic: No abnormal bleeding/bruising Integumentary: No new/changing skin lesions Physical Exam Vital Signs Date Time Temp Pulse Resp B/P Pulse Ox O2 Delivery O2 Flow Rate FiO2 09/17/16 15:00 123 18 124/61 98 Room Air 09/17/16 13:59 119 18 107/62 96 Room Air 09/17/16 13:03 130 09/17/16 12:56 125 112/64 129 110/52 135 69/45 09/17/16 12:49 94 Room Air 09/17/16 12:43 37.1 128 18 120/59 94 Room Air General Appearance: WD/WN, no apparent distress, + thin, + pertinent finding ( Pt is laying in bed with son and [id number] at bedside) Head: normocephalic, atraumatic Eyes: normal inspection, PERRL, EOMI ENT: hearing grossly normal Neck: supple Respiratory/Chest: chest non-tender, lungs clear, normal breath sounds, no respiratory distress Cardiovascular: no edema, no murmur, + tachycardia Abdomen/GI: normal bowel sounds, non tender, soft Back: normal inspection Extremities/Musculoskelatal: normal inspection, no calf tenderness, no pedal edema Neurologic/Psych: 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 as tested, no motor/sensory deficits, alert, normal mood/affect, oriented x 3 Skin: normal color, warm/dry, + pertinent finding (stage 2 pressure ulcer noted to buttock) Diagnostics Laboratory Results Results Past 24 Hours Test 09/17/16 12:42 09/17/16 13:00 09/17/16 13:15 Range/Units Bedside Glucose 109 70-99 mg/dl Urine Color YELLOW Urine Appearance CLEAR CLEAR Urine pH 5.0 4.5-7.5 Urine Specific [place] 1.023 1.000-1.030 Urine Protein TRACE NEG Urine Glucose (UA) 2+ NEG Urine Ketones NEG NEG Urine Occult Blood NEG NEG Urine Nitrite NEG NEG Urine Bilirubin NEG NEG Urine Urobilinogen NEG NEG Urine Leukocyte Esterase NEG NEG Urine WBC (Auto) 1-5 0-5 /hpf Urine RBC (Auto) 0-4 0-4 /hpf Urine Hyaline Casts (Auto) 1-5 0-5 /lpf Urine Epithelial Cells (Auto) 10-20 0-5 /lpf Urine Bacteria (Auto) NEG NEG White Blood Count 10.01 4.8-10.8 K/uL Red Blood Count 4.06 4.7-6.1 M/uL Hemoglobin 12.3 14.0-18.0 g/dL Hematocrit 37.4 42-52 % Mean Corpuscular Volume 92.1 80-100 fL Mean Corpuscular Hemoglobin 30.3 25-34 pg Mean Corpuscular Hemoglobin Concent 32.9 32-36 g/dl Platelet Count 106 130-400 K/uL Mean Platelet Volume 9.9 7.4-10.4 fL Neutrophils (%) (Auto) 93.9 % Lymphocytes (%) (Auto) 3.2 % Monocytes (%) (Auto) 1.7 % Eosinophils (%) (Auto) 0.3 % Basophils (%) (Auto) 0.0 % Neutrophils # (Auto) 9.40 1.4-6.5 K/uL Lymphocytes # (Auto) 0.32 1.2-3.4 K/uL Monocytes # (Auto) 0.17 0.11-0.59 K/uL Eosinophils # (Auto) 0.03 0-0.5 K/uL Basophils # (Auto) 0.00 0-0.2 K/uL RDW Standard Deviation 56.0 36.4-46.3 fL RDW Coefficient of Variation 16.6 11.5-14.5 % Immature Granulocyte % (Auto) 0.9 % Immature Granulocyte # (Auto) 0.09 0.00-0.02 K/uL Prothrombin Time 10.7 9.0-12.0 SECONDS Prothromb Time International Ratio 1.0 0.9-1.1 Activated Partial Thromboplast Time 23.5 21.0-31.0 SECONDS Partial Thromboplastin Ratio 0.9 Sodium Level 136 136-145 mmol/L Potassium Level 4.5 3.5-5.1 mmol/L Chloride Level 100 98-107 mmol/L Carbon Dioxide Level 31 21-32 mmol/L Anion Gap 5.0 3-11 mmol/L Blood Urea Nitrogen 36 7-18 mg/dl Creatinine 1.20 0.60-1.40 mg/dl Est Creatinine Clear Calc Drug Dose 29.6 ml/min Estimated GFR () 61.8 Estimated GFR (Non- 53.3 BUN/Creatinine Ratio 30.2 10-20 Random Glucose 91 70-99 mg/dl Calcium Level 7.9 8.5-10.1 mg/dl Magnesium Level 1.8 1.8-2.4 mg/dl Total Bilirubin 0.5 0.2-1 mg/dl Direct Bilirubin 0.1 0-0.2 mg/dl Aspartate Amino Transf (AST/SGOT) 18 15-37 U/L Alanine Aminotransferase (ALT/SGPT) 32 12-78 U/L Alkaline Phosphatase 70 45-117 U/L Total Creatine Kinase 53 39-308 U/L Creatine Kinase MB 4.4 0.5-3.6 ng/ml Creatine Kinase MB Ratio 8.3 0-3.0 Troponin I 0.204 0-0.045 ng/ml Pro-B-Type Natriuretic Peptide 940 0-1800 pg/ml Total Protein 5.3 6.4-8.2 gm/dl Albumin 2.4 3.4-5.0 gm/dl Thyroid Stimulating Hormone (TSH) 0.814 0.300-4.500 uIu/ml Diagnostic Radiology CXR IMPRESSION: Chronic parenchymal fibrosis. No acute or superimposed process. CT HEAD IMPRESSION: There is no hemorrhage, mass effect, or evidence of acute territorial ischemia by CT criteria. EKG EKG: sinus tachy at 130 bpm with PACs, LAD and nonspec ST abnormality; no change when compared to EKG from 08/13/16 Impression Assessment and Plan SEVERE HYPOGLYCEMIA pt presented with weakness, confusion and diaphoresis -admit to telemetry -pt has history of IDDM 2; sugars have been fluctuating while on Prednisone -EMS reported BSG 40; pt received 1 amp D50 en route; BSG 109 on arrival to ED -start gentle IVF -consult pharmacy for glycemic mgmt -monitor closely ELEVATED TROPONIN -low suspicion for ACS; likely elevated due to demand ischemia -Trop 0.204; cont to monitor with serial Kimo x3 -EKG no acute ischemic change -echo 08/14/16 EF 55-60% with base inferior and posterior wall hypokinesis -pt currently denies anginal sxs TACHYCARDIA -tachy in 120-130s; last admission HR 90s-low 100s -no signs of infection; afebrile no leuks -recent echo as documented above -TSH WNL; HgB stable -start gentle IVF -monitor STAGE II PRESSURE ULCER OF BUTTOCK -reposition and turn q 2 hrs -no evidence of infection -monitor PULMONARY FIBROSIS -cont Prednisone 20mg daily -keep f/u apt with pulmonology, Dr. Bronson on 10/15 PAF -EKG: sinus tachy -cont diltiazem -pt is not on BB or anticoagulation -monitor HYPOTHYROIDISM -TSH WNL -cont levothyroxine HTN -BP stable -cont losartan and diltiazem -monitor DYSLIPIDEMIA -cont statin DVT PROPHYLAXIS -subq Lovenox CODE STATUS -DNR per discussion with patient upon admission DISPO -Discharge eval and PT/OT eval placed -Pt seen in collaboration with Dr. Bella. Please see her addendum for further details. Thanks! -Of note: patient will be seen by Dr. Montes starting tomorrow AM. I have seen, examined and discussed this patient with Keshia Forbes and I agree with the above note. Patient presents with symptoms c/w documented hypoglycemia. Patient and family have been feeling overwhelmed by insulin regimen since last discharge. Patient denies any cardiac symptoms. Patient's family notes that patient's breathing and cough have dramatically improved since being on the prednisone. Vitals notable for tachycardia. PE: General- awake; alert; NAD Eyes- EOMI; no scleral icterus Neck- no stridor; trachea midline Lungs- bibasilar crackles Heart- tachycardic but regular; +gallop Abdomen- soft; NTND; nBS Back- normal inspection Extremities- no c/c/e; no deformity Neuro- no focal deficits; oriented x3; appropriately answering questions Skin- no appreciable rash Labs, imaging and EKG reviewed. Hypoglycemia: Patient has been inconsistent with diet and taking insulin. He is too overwhelmed by his regimen on previous discharge. Glycemic pharmacy consulted, but will need to have a very simple insulin regimen upon this discharge; perhaps just basal insulin. Elevated troponin: Patient denies any cardiac symptoms. Likely demand in the setting of tachycardia and profound hypoglycemia. Trend cardiac enzymes. Patient had recent TTE a month ago so did not repeat at this time. EKG without ischemic changes. Tachycardia: EKG with sinus tachycardia. Continue diltiazem. Gentle IVF's. Patient's son would like daily updates and would like to discuss discharge options with social work. Patient does not want to move in with his son. They feel that patient may be declining past the point of being able to continue living alone. Patient's currently resides in a SNF. VTE Prophylaxis VTE Risk Assessment Done? Y/N: Yes Risk Level: High
[2016-09-17] MEDS ORDERED: GLUCOSE 40% GEL 15 GM TUBE PO PRN (17:00)
[2016-09-17] MEDS ORDERED: DEXTROSE 50% 50 ML SYR IV PRN (17:00)
[2016-09-17] MEDS ORDERED: GLUCOSE 10 TABS/TUBE PO PRN (17:00)
[2016-09-17] MEDS ORDERED: GLUCAGON FOR INJ 1 MG VIAL SQ PRN (17:00)
[2016-09-17] MEDS: INSULIN ASPART 100 UNITS/ML 3 ML PEN SC SCH ×2 (17:08→20:29)
[2016-09-17] MEDS: SODIUM CHLORIDE 0.9% 1000ML 1,000 ML IV SCH (17:09)
--- NOTE | 2016-09-17 17:23 | Pharmacy Progress Note ---
Glycemic Control Intl Consult Date of Service September 17, 2016. Scope Glycemic Pharmacist consulted by Mamta Jones on 09/17/16 for glycemic control and to write orders per [facility] inpatient glycemic control protocol Objective Weight (Kilograms): 50.200 Accuchecks BSG (last 24hrs): Test 09/17/16 12:42 09/17/16 13:15 09/17/16 16:58 Bedside Glucose 109 mg/dl (70-99) 84 mg/dl (70-99) Random Glucose 91 mg/dl (70-99) Laboratory Data (last 24hrs) Test 09/17/16 13:15 Anion Gap 5.0 mmol/L BUN/Creatinine Ratio 30.2 Blood Urea Nitrogen 36 mg/dl Creatinine 1.20 mg/dl Potassium Level 4.5 mmol/L Sodium Level 136 mmol/L White Blood Count 10.01 K/uL Red Blood Count 4.06 M/uL Hemoglobin 12.3 g/dL Hematocrit 37.4 % Mean Corpuscular Volume 92.1 fL Mean Corpuscular Hemoglobin 30.3 pg Mean Corpuscular Hemoglobin Concent 32.9 g/dl Platelet Count 106 K/uL Mean Platelet Volume 9.9 fL Neutrophils (%) (Auto) 93.9 % Lymphocytes (%) (Auto) 3.2 % Monocytes (%) (Auto) 1.7 % Eosinophils (%) (Auto) 0.3 % Basophils (%) (Auto) 0.0 % Neutrophils # (Auto) 9.40 K/uL Lymphocytes # (Auto) 0.32 K/uL Monocytes # (Auto) 0.17 K/uL Eosinophils # (Auto) 0.03 K/uL Basophils # (Auto) 0.00 K/uL Recent Pertinent Medications Outpatient Anti-diabetic Regimen: * Lantus 8 units SQ BID * NovoLog 6 untis SQ AC * Metformin * glipizide * A1c = 6.8 % 07/2016 Risk Factors for Insulin Resistance: * Steroids: Prednisone 20mg PO daily (home medication for pulmonary fibrosis) * IVF: NSS * Diet: T2DM Assessment & Plan ASSESSMENT: Initial: * ADA & AACE recommend a goal blood sugar range 140-180 mg/dl for the majority of critically ill & non-critically ill patients. * 89 y/o type 2 diabetic who has been struggling with fluctuating BSGs recently. * on both oral medications as well as basal/bolus insulins (Lantus recently increased from 6-->8 units SQ BID) * Lives alone and does admit to recent BSG ranging from 30-300mg/dL * Patient on daily prednisone for pulmonary fibrosis * Recent A1c of 6.8% does elude to appropriate diabetic control, however knowledge of BSG may deem this metric less valuable. 09/17/16 * Admitted this evening for hypoglycemia, severe in nature * confusion, diaphoresis, and inappropriate response to cookie/OJ at home * unsure what insulins were taken this AM * 1 amp of D50 given en route to ED * Currently BSG below goal at 84mg/dL despite having meal tray in ED * will hold basal insulin (until see BSG begin to rise) * will hold both oral diabetic medications (oral agents are not recommended for inpatient use d/t drug interactions, changing PO intake, and difficulty titrating for acute hyper/hypoglycemia). * Hold prandial insulins and employ correctional insulin only at this time * patient admits to inconsistent meal consumption at home PLAN FOR INPATIENT GLYCEMIC CONTROL: * Basal insulin: * hold at this time, reinstitute (at a reduced dose) when BSGs at or above goal range consistently * Bolus insulin: * Begin NovoLog SQ AC and HS - Correction factor: 30mg/dL/unit (from recent admission data) - Goal range: 140-180mg/dL per ADA recommendation - Carb ratio: hold at this time * Oral medications: * hold both metformin and glipizide at this time - reinstate, if desired, 1-2 days prior to discharge when PO intake established, BSGs stable * A1c - current * add to discharge instructions * interpret with caution per above. RECOMMENDATIONS FOR DISCHARGE: * Awaited, likely will need review of diabetic regimen prior to discharge to avoid further hyper/hypoglycemia. * Please note that the plan above was derived based on current level of insulin resistance and hospital stress. These recommendations are appropriate for inpatient admission only. Plan of care upon discharge will need to be reassessed to avoid potential outpatient hypo/hyperglycemia. Thank you.
[2016-09-17 19:21] VITALS: BP 100/51; PULSE 98; TEMP 36.9; O2SAT 96
[2016-09-17] MEDS: ENOXAPARIN 30 MG/0.3 ML SYR SC SCH (20:28)
[2016-09-17] MEDS: FLUTICASONE PROPIONATE NA SPR 16 GM BTL NAE SCH (20:28)
[2016-09-17] MEDS: MIRTAZAPINE TAB 15 MG TAB PO SCH (20:29)
[2016-09-17] MEDS: TAMSULOSIN HCL 0.4 MG CAP PO SCH (20:29)
[2016-09-17 21:29] VITALS: BP_SYST 102; BP_SYST 104; BP_SYST 90; BP_DIAS 53; BP_DIAS 54; BP_DIAS 57
[2016-09-17 23:17] VITALS: BP 99/46; PULSE 83; TEMP 36.6; O2SAT 95
[2016-09-18 00:35] LABS: HEMATOCRIT 32.8 % (42-52); MEAN CELL VOLUME 91.6 fL (80-100); MEAN CORPUSCULAR HEMOGLOBIN 30.7 pg (25-34); MEAN CORPUSCULAR HGB CONC 33.5 g/dl (32-36); RED BLOOD COUNT 3.58 M/uL (4.7-6.1); WHITE BLOOD COUNT 6.35 K/uL (4.8-10.8)
[2016-09-18 00:59] LABS: PLATELET COUNT 83 K/uL (130-400); PLT ESTIMATE DECREASED
[2016-09-18 01:07] LABS: BLOOD UREA NITROGEN 28 mg/dl (7-18); BUN/CREATININE RATIO 23.5 (10-20); CALCIUM 7.8 mg/dl (8.5-10.1); CARBON DIOXIDE 29 mmol/L (21-32); CHLORIDE 102 mmol/L (98-107); GLUCOSE 189 mg/dl (70-99); POTASSIUM 4.7 mmol/L (3.5-5.1); SODIUM 138 mmol/L (136-145)
[2016-09-18] MEDS: SODIUM CHLORIDE 0.9% 1000ML 1,000 ML IV SCH (05:52)
[2016-09-18] MEDS: LEVOTHYROXINE 50 MCG TAB PO SCH (05:52)
[2016-09-18 06:43] VITALS: BP_SYST 114; BP_SYST 95; BP_SYST 98; BP_DIAS 57; BP_DIAS 59; BP_DIAS 62; PULSE 90; TEMP 36.6; O2SAT 97
[2016-09-18 06:57] VITALS: BP 131/67; PULSE 101; TEMP 36.6; O2SAT 96
[2016-09-18] MEDS: INSULIN ASPART 100 UNITS/ML 3 ML PEN SC SCH ×4 (07:52→22:17)
--- NOTE | 2016-09-18 08:01 | Clinical Documentation Query ---
SHALOM Corey : CLINICAL DOCUMENTATION QUERY Patient is an 89 year old male presenting for evaluation and treatment of intermittent confusion for the past 3 weeks. He states that his "head gets fuzzy". Family found patient the day of admission weak, confused, diaphoretic, and cold. BSG was 40 per EMS. Patient was treated with IV Dextrose and he was subsequently admitted for inpatient glycemic management. He is oriented on all axes at this time. As appropriate, consider documentation as suggested below as this directly impacts DRG assignment. Thank you. In your clinical opinion is this patient being managed for: ( x ) Metabolic encephalopathy secondary to hypoglycemia, POA, resolved ( ) Other explanation of clinical findings (Please Explain) ( ) Unable to determine (Please Define) ( ) Need to Discuss ( ) Not Agree The medical record reflects the following clinical findings, treatment, and risk factors. Clinical Indicators: Altered mental status in the setting of hypoglycemia Treatment: IV dextrose, pharmacy consultation for glycemic management plan Risk Factors: Age, complicated home insulin regimen, overdosage/undereating Please clarify and document your clinical opinion in the progress notes and discharge summary. Terms such as "probable", "suspected", "likely", "questionable", "possible", or "still to be ruled out" are acceptable. IF IN AGREEMENT, YOU MUST DOCUMENT ABOVE DIAGNOSTIC STATEMENT IN DAILY PROGRESS NOTES AND DISCHARGE SUMMARY. This document is not part of the patient's record. Thank You, Wilmar Pal RN [phone]
[2016-09-18] MEDS: ASPIRIN 81 MG ECTAB PO SCH (08:45)
[2016-09-18] MEDS: PANTOprazole SOD 40 MG TAB PO SCH (08:46)
[2016-09-18] MEDS: LOSARTAN POTASSIUM 25 MG TAB PO SCH (08:46)
[2016-09-18] MEDS: MULTIVITAMIN TAB PO SCH (08:46)
[2016-09-18] MEDS ORDERED: DILTIAZEM HCL (TIAzac) 180 MG CAPCR PO SCH (09:00)
[2016-09-18 10:28] VITALS: BP 95/57; TEMP 36.6; O2SAT 95
--- NOTE | 2016-09-18 10:38 | Pharmacy Progress Note ---
Glycemic Control: Progress Nt Date of Service September 18, 2016. Scope Glycemic Pharmacist consulted by Mamta Jones on 09/17/16 for glycemic control and to write orders per [facility] inpatient glycemic control protocol. Objective Accuchecks BSG (last 24hrs): Test 09/17/16 12:42 09/17/16 13:15 09/17/16 16:58 09/17/16 20:05 Bedside Glucose 109 mg/dl (70-99) 84 mg/dl (70-99) 156 mg/dl (70-99) Random Glucose 91 mg/dl (70-99) Test 09/18/16 00:28 09/18/16 06:29 Random Glucose 189 mg/dl (70-99) Bedside Glucose 103 mg/dl (70-99) Laboratory Data (last 24hrs) Test 09/17/16 13:15 09/18/16 00:28 Anion Gap 5.0 mmol/L 7.0 mmol/L BUN/Creatinine Ratio 30.2 23.5 Blood Urea Nitrogen 36 mg/dl 28 mg/dl Creatinine 1.20 mg/dl 1.20 mg/dl Potassium Level 4.5 mmol/L 4.7 mmol/L Sodium Level 136 mmol/L 138 mmol/L White Blood Count 10.01 K/uL 6.35 K/uL Red Blood Count 4.06 M/uL Hemoglobin 12.3 g/dL Hematocrit 37.4 % Mean Corpuscular Volume 92.1 fL Mean Corpuscular Hemoglobin 30.3 pg Mean Corpuscular Hemoglobin Concent 32.9 g/dl Platelet Count 106 K/uL Mean Platelet Volume 9.9 fL Neutrophils (%) (Auto) 93.9 % Lymphocytes (%) (Auto) 3.2 % Monocytes (%) (Auto) 1.7 % Eosinophils (%) (Auto) 0.3 % Basophils (%) (Auto) 0.0 % Neutrophils # (Auto) 9.40 K/uL Lymphocytes # (Auto) 0.32 K/uL Monocytes # (Auto) 0.17 K/uL Eosinophils # (Auto) 0.03 K/uL Basophils # (Auto) 0.00 K/uL Recent Pertinent Medications Outpatient Anti-diabetic Regimen: * Lantus 8 units SQ BID * NovoLog 6 units SQ AC * Metformin ER 500mg PO BID * glipizide 5mg PO BID * A1c = 6.8 % 07/2016 Risk Factors for Insulin Resistance: * Steroids: Prednisone 20mg PO daily (home medication for pulmonary fibrosis) * IVF: NSS * Diet: T2DM - at 100% of breakfast this AM Assessment & Plan ASSESSMENT: Initial: * ADA & AACE recommend a goal blood sugar range 140-180 mg/dl for the majority of critically ill & non-critically ill patients. * 89 y/o type 2 diabetic who has been struggling with fluctuating BSGs recently. * on both oral medications as well as basal/bolus insulins (Lantus recently increased from 6-->8 units SQ BID) * Lives alone and does admit to recent BSG ranging from 30-300mg/dL * Patient on daily prednisone for pulmonary fibrosis * Recent A1c of 6.8% does elude to appropriate diabetic control, however knowledge of BSG may deem this metric less valuable. 09/17/16 * Admitted this evening for hypoglycemia, severe in nature * confusion, diaphoresis, and inappropriate response to cookie/OJ at home * unsure what insulins were taken this AM * 1 amp of D50 given en route to ED 09/18/16 * Currently BSG below goal at 103 mg/dL without any insulin since admission * will continue to hold basal insulin (until see BSG begin to rise) * will hold both oral diabetic medications (oral agents are not recommended for inpatient use d/t drug interactions, changing PO intake, and difficulty titrating for acute hyper/hypoglycemia). * Hold prandial insulins and employ correctional insulin only at this time * patient admits to inconsistent meal consumption at home * if BSG at lunch elevated (secondary to lack of prandial coverage and steroid- induced hyperglycemia) will re-instate carb coverage PLAN FOR INPATIENT GLYCEMIC CONTROL: * Basal insulin: * Begin Lantus SQ BID - 5 units SQ x1 dose with Lunch For ongoing order starting this evening: - 0 units if BSG less than 120mg/dL - 5 units if [id number] - 8 units if BSG above 160mg/dl * Bolus insulin: * Begin NovoLog SQ AC and HS - Add overnight Accu-check at 02:00 - Correction factor: 30mg/dL/unit (from recent admission data) - Goal range: 140-180mg/dL per ADA recommendation - Carb ratio: begin 1 unit per 10 g of CHO consumed * Oral medications: * hold both metformin and glipizide at this time - reinstate, if desired, 1-2 days prior to discharge when PO intake established, BSGs stable * A1c - current * add to discharge instructions * interpret with caution per above. RECOMMENDATIONS FOR DISCHARGE: * Awaited, likely will need review of diabetic regimen prior to discharge to avoid further hyper/hypoglycemia. * Please note that the plan above was derived based on current level of insulin resistance and hospital stress. These recommendations are appropriate for inpatient admission only. Plan of care upon discharge will need to be reassessed to avoid potential outpatient hypo/hyperglycemia. Thank you.
[2016-09-18] MEDS ORDERED: INSULIN GLARGINE SOLOSTAR 100 UNITS/ML 3 ML PEN SC ONE (13:30)
[2016-09-18 14:48] VITALS: BP 95/57; PULSE 101; TEMP 36.6; O2SAT 95
[2016-09-18 15:08] VITALS: Ht 162.6 cm; Wt 46.9 kg
[2016-09-18 16:21] VITALS: O2SAT 95
--- NOTE | 2016-09-18 18:31 | Progress Note ---
Medicine Progress Note Date & Time of Visit: September 18, 2016 at 13:40 . Subjective Blood sugars fluctuating. No chest pain. No cough or SOB. No nausea or vomiting. Appetite good. Family visiting. . Objective Last 8 Hrs Date Time Temp Pulse Resp B/P Pulse Ox O2 Delivery O2 Flow Rate FiO2 09/18/16 16:21 95 Room Air 09/18/16 14:48 36.6 101 16 95 09/18/16 12:00 Room Air 09/18/16 10:28 36.6 16 95/57 95 Room Air Physical Exam: General- no distress Neck- no JVD Lungs- clear Heart- RRR Abdomen- + BS, soft, nontender Extremities- no pretibial edema or calf tenderness Neuro- alert, oriented . Laboratory Results: Last 24 Hours Test 09/17/16 19:15 09/17/16 19:20 09/17/16 20:05 09/18/16 00:28 Creatine Kinase MB Ratio Creatine Kinase MB 3.5 ng/ml 2.7 ng/ml Troponin I 0.248 ng/ml 0.167 ng/ml Bedside Glucose 156 mg/dl White Blood Count 6.35 K/uL Red Blood Count 3.58 M/uL Hemoglobin 11.0 g/dL Hematocrit 32.8 % Mean Corpuscular Volume 91.6 fL Mean Corpuscular Hemoglobin 30.7 pg Mean Corpuscular Hemoglobin Concent 33.5 g/dl RDW Standard Deviation 56.5 fL RDW Coefficient of Variation 16.6 % Platelet Count 83 K/uL Mean Platelet Volume 9.0 fL Platelet Estimate DECREASED Sodium Level 138 mmol/L Potassium Level 4.7 mmol/L Chloride Level 102 mmol/L Carbon Dioxide Level 29 mmol/L Anion Gap 7.0 mmol/L Blood Urea Nitrogen 28 mg/dl Creatinine 1.20 mg/dl Est Creatinine Clear Calc Drug Dose 29.6 ml/min Estimated GFR () 61.8 Estimated GFR (Non- 53.3 BUN/Creatinine Ratio 23.5 Random Glucose 189 mg/dl Calcium Level 7.8 mg/dl Test 09/18/16 06:29 09/18/16 11:20 09/18/16 16:58 Bedside Glucose 103 mg/dl 327 mg/dl 318 mg/dl Other Studies: EKG performed at 06:44 reviewed and demonstrated NSR at 97 / minute, slight ST depression laterally. . Assessment & Plan DM TYPE 2 / SEVERE HYPOGLYCEMIA DM type 2, well-controlled until requiring steroid therapy for pulmonary fibrosis. Hgb A1C was 6.8 on 08/16/16. He has been taking metformin, glipizide, Lantus, and fixed-dose NovoLog with meals at home. Family reports meal preparation / intake and glucose monitoring varies. Hypoglycemic with glucose of 30 day of admission. Holding glipizide and metformin. Pharmacy consulted. Titrating Lantus & NovoLog. DEHYDRATION IV fluids. CORONARY ARTERY DISEASE Troponin slightly elevated, but CPK normal. No anginal symptoms. Elevated troponin most like secondary to demand ischemia; acute coronary syndrome unlikely. Continue aspirin, diltiazem, atorvastatin. PAROXYSMAL ATRIAL FIB BP's running low at times. Decrease diltiazem CR to 120 mg daily. HYPERTENSION BP's running low at times. Decrease diltiazem CR to 120 mg daily. PULMONARY FIBROSIS Has improved with steroid therapy. Prednisone recently tapered to 20 mg daily. BPH Continue tamsulosin. HYPOTHYROIDISM Continue levothyroxine. VTE PROPHYLAXIS SQ enoxaparin. Ambulate. DISPOSITION Patient and family have been considering NH placement for more support and supervision. Case Management consulted. Pulmonary Medicine follow-up with Dr. Bronson. . Current Inpatient Medications: Current Inpatient Medications Medications (Trade) Dose Ordered Sig/Rachel Route Start Time Stop Time Status Last Admin Dose Admin Enoxaparin Sodium (Lovenox Inj) 30 mg DAILY@2100 SC 09/17/16 21:00 10/17/16 20:59 09/17/16 20:28 30 MG Acetaminophen (Tylenol Tab) 650 mg Q4H PRN PO 09/17/16 16:00 10/17/16 15:59 Ondansetron HCl (Zofran Inj) 4 mg Q6H PRN IV 09/17/16 16:00 10/17/16 15:59 Nitroglycerin (Nitrostat Tab) 0.4 mg UD PRN SL 09/17/16 16:00 10/17/16 15:59 Miscellaneous Information (Consult Glycemic Management Pharmacy) 1 ea UD PRN N/A 09/17/16 16:53 10/17/16 16:52 Aspirin (Ecotrin Tab) 81 mg DAILY PO 09/18/16 09:00 10/18/16 08:59 09/18/16 08:45 81 MG Atorvastatin Calcium (Lipitor Tab) 10 mg Q2D@2100 PO 09/18/16 21:00 10/18/16 20:59 Diltiazem HCl (TIAzac CAP) 180 mg DAILY PO 09/18/16 09:00 10/18/16 08:59 09/18/16 08:46 180 MG Fluticasone Propionate (Flonase Nasal [place]) 2 sprays HS SUNIL 09/17/16 21:00 10/17/16 20:59 09/17/16 20:28 2 SPRAYS Levothyroxine Sodium (Synthroid Tab) 50 mcg DAILYBB PO 09/18/16 06:00 10/18/16 08:59 09/18/16 05:52 50 MCG Losartan Potassium (coZAAR TAB) 25 mg DAILY PO 09/18/16 09:00 10/18/16 08:59 09/18/16 08:46 25 MG Mirtazapine (Remeron Tab) 30 mg HS PO 09/17/16 21:00 10/17/16 20:59 09/17/16 20:29 30 MG Multivitamins (Multivitamin Tab) 1 tab DAILY PO 09/18/16 09:00 10/18/16 08:59 09/18/16 08:46 1 TAB Prednisone (PredniSONE TAB) 20 mg DAILY PO 09/18/16 09:00 10/18/16 08:59 09/18/16 08:46 20 MG Tamsulosin HCl (Flomax Cap) 0.4 mg QPM PO 09/17/16 21:00 10/17/16 20:59 09/17/16 20:29 0.4 MG Miscellaneous Information (Order Awaiting Action) 1 ea Q8 N/A 09/17/16 20:00 10/17/16 19:59 Miscellaneous Information (Order Awaiting Action) 1 ea QS N/A 09/17/16 20:00 10/17/16 19:59 Pantoprazole Sodium (Protonix Tab) 40 mg DAILY PO 09/18/16 09:00 10/18/16 08:59 09/18/16 08:46 40 MG Glucose (Glucose 40% Gel) 15-30 GRAMS 15 GRAMS... UD PRN PO 09/17/16 17:00 10/17/16 16:59 Glucose (Glucose Chew Tab) 4-8 Tablets 4 Tabl... UD PRN PO 09/17/16 17:00 10/17/16 16:59 Dextrose (Dextrose 50% 50ML Syringe) 25-50ML OF 50% DW IV FOR... UD PRN IV 09/17/16 17:00 10/17/16 16:59 Glucagon (Glucagon Inj) 1 mg UD PRN SQ 09/17/16 17:00 10/17/16 16:59 Insulin Aspart (novoLOG ASPART) SLIDING SCALE ACHS SC 09/17/16 17:30 10/17/16 17:29 09/18/16 17:41 9 UNITS Insulin Aspart (novoLOG ASPART) SLIDING SCALE 0200 SC 09/19/16 02:00 10/19/16 01:59 Insulin Glargine (Lantus Solostar Pen) SEE PROTOCOL BID SC 09/18/16 20:00 10/18/16 20:59
[2016-09-18] MEDS ORDERED: SODIUM CHLORIDE 0.9% 1000ML 1,000 ML IV SCH (18:45)
[2016-09-18] MEDS ORDERED: ATORVASTATIN 10 MG TAB PO SCH (21:00)
[2016-09-18] MEDS: ENOXAPARIN 30 MG/0.3 ML SYR SC SCH (21:10)
[2016-09-18] MEDS: MIRTAZAPINE TAB 15 MG TAB PO SCH (21:11)
[2016-09-18] MEDS: TAMSULOSIN HCL 0.4 MG CAP PO SCH (21:12)
[2016-09-18] MEDS: FLUTICASONE PROPIONATE NA SPR 16 GM BTL NAE SCH (21:12)
[2016-09-18] MEDS: INSULIN GLARGINE SOLOSTAR 100 UNITS/ML 3 ML PEN SC SCH (22:18)
[2016-09-19 00:11] VITALS: BP 108/66; PULSE 75; TEMP 36.4; O2SAT 94
[2016-09-19] MEDS ORDERED: INSULIN ASPART 100 UNITS/ML 3 ML PEN SC SCH ×2 (02:00→13:00)
[2016-09-19] MEDS: LEVOTHYROXINE 50 MCG TAB PO SCH (06:17)
[2016-09-19 06:25] LABS: BUN/CREATININE RATIO 23.8 (10-20); CALCIUM 7.8 mg/dl (8.5-10.1); CREATININE 0.99 mg/dl (0.60-1.40); POTASSIUM 4.3 mmol/L (3.5-5.1)
[2016-09-19 07:49] VITALS: BP 122/70; PULSE 95; TEMP 36.4; O2SAT 97
[2016-09-19] MEDS: INSULIN ASPART 100 UNITS/ML 3 ML PEN SC SCH ×4 (08:30→20:59)
[2016-09-19] MEDS: INSULIN GLARGINE SOLOSTAR 100 UNITS/ML 3 ML PEN SC SCH ×2 (08:31→20:58)
[2016-09-19] MEDS: LOSARTAN POTASSIUM 25 MG TAB PO SCH (08:32)
[2016-09-19] MEDS: ASPIRIN 81 MG ECTAB PO SCH (08:33)
[2016-09-19] MEDS: DILTIAZEM HCL 120 MG ER CAP PO SCH (08:33)
[2016-09-19] MEDS: MULTIVITAMIN TAB PO SCH (08:33)
[2016-09-19] MEDS: PANTOprazole SOD 40 MG TAB PO SCH (08:34)
--- NOTE | 2016-09-19 09:46 | Pharmacy Progress Note ---
Glycemic Control: Progress Nt Date of Service September 19, 2016. Scope Glycemic Pharmacist consulted by Mamta Jones on 09/17/16 for glycemic control and to write orders per [facility] inpatient glycemic control protocol. Objective Accuchecks BSG (last 24hrs): Test 09/18/16 11:20 09/18/16 16:58 09/18/16 20:38 09/19/16 02:14 Bedside Glucose 327 mg/dl (70-99) 318 mg/dl (70-99) 240 mg/dl (70-99) 193 mg/dl (70-99) Test 09/19/16 05:19 09/19/16 07:47 Random Glucose 196 mg/dl (70-99) Bedside Glucose 189 mg/dl (70-99) Laboratory Data (last 24hrs) Test 09/19/16 05:19 Anion Gap 4.0 mmol/L BUN/Creatinine Ratio 23.8 Blood Urea Nitrogen 24 mg/dl Creatinine 0.99 mg/dl Potassium Level 4.3 mmol/L Sodium Level 137 mmol/L Recent Pertinent Medications Outpatient Anti-diabetic Regimen: * Lantus 8 units SQ BID * NovoLog 6 units SQ AC * Metformin ER 500mg PO BID * glipizide 5mg PO BID * A1c = 6.8 % 07/2016 Risk Factors for Insulin Resistance: * Steroids: Prednisone 20mg PO daily (home medication for pulmonary fibrosis) * IVF: NSS * Diet: T2DM - at 100% of breakfast this AM Assessment & Plan ASSESSMENT: Initial: * ADA & AACE recommend a goal blood sugar range 140-180 mg/dl for the majority of critically ill & non-critically ill patients. * 89 y/o type 2 diabetic who has been struggling with fluctuating BSGs recently. * on both oral medications as well as basal/bolus insulins (Lantus recently increased from 6-->8 units SQ BID) * Lives alone and does admit to recent BSG ranging from 30-300mg/dL * Patient on daily prednisone for pulmonary fibrosis * Recent A1c of 6.8% does elude to appropriate diabetic control, however knowledge of BSG may deem this metric less valuable. 09/17/16 & 09/18/16 * Admitted this evening for hypoglycemia, severe in nature * confusion, diaphoresis, and inappropriate response to cookie/OJ at home * 1 amp of D50 given en route to ED * BSG below goal 5/3 AM with morning value of 103 mg/dL without any insulin since admission * will continue to hold basal insulin (until see BSG begin to rise) * will hold both oral diabetic medications (oral agents are not recommended for inpatient use d/t drug interactions, changing PO intake, and difficulty titrating for acute hyper/hypoglycemia). * Hold prandial insulins and employ correctional insulin only at this time * patient admits to inconsistent meal consumption at home * if BSG at lunch elevated (secondary to lack of prandial coverage and steroid- induced hyperglycemia) will re-instate carb coverage 09/19/16 * BSGs rising precipitously with lack of insulin on board and PO steroids * patient responding more similarly to a type 1 vs a type 2 diabetic * Lantus re-instated yesterday around noontime, BSGs have trended down since then * Carb ratio added back to help regain control of BSGs * Fasting BSG today elevated. Again, patient likely basal insulin deficient secondary to hypoglycemia on admission * continue with current Lantus orders * Pre-Lunch BSG elevated - may see elevation in AM and lunch BSG with peak of PO prednisone * tighten CF and CR with breakfast and lunch only to help combat this PLAN FOR INPATIENT GLYCEMIC CONTROL: * Basal insulin: * Lantus SQ BID - 0 units if BSG less than 120mg/dL - 5 units if [id number]/dL - 8 units if BSG above 160mg/dl small changes may produce drastic fluctuation in BSG, continue to monitor * Bolus insulin: * Begin NovoLog SQ AC and HS - Add overnight Accu-check at 02:00 - Correction factor: 25mg/dL/unit with breakfast and lunch, 30mg/dL/ unit with dinner and bedtime - Goal range: 140-180mg/dL per ADA recommendation - Carb ratio: 1:8 with breakfast and lunch, 1:10 with dinner and bedtime * Oral medications: * hold both metformin and glipizide at this time * A1c - current * add to discharge instructions * interpret with caution per above. RECOMMENDATIONS FOR DISCHARGE: * Awaited, likely will need review of diabetic regimen prior to discharge to avoid further hyper/hypoglycemia: * may benefit from discontinuation of oral diabetic medications secondary to their ability to induce hypoglycemia, plus baseline renal dysfunction present. * Hopeful for basal + correctional insulin only at discharge (with thought that prednisone may be tapered) - this will be able to be executed if patient is discharged to somewhere other than home. * Please note that the plan above was derived based on current level of insulin resistance and hospital stress. These recommendations are appropriate for inpatient admission only. Plan of care upon discharge will need to be reassessed to avoid potential outpatient hypo/hyperglycemia. Thank you.
[2016-09-19] MEDS ORDERED: SODIUM CHLORIDE 0.9% 1000ML 1,000 ML IV SCH (14:30)
[2016-09-19 15:43] VITALS: BP 101/57; PULSE 103; TEMP 36.3; O2SAT 96
[2016-09-19 16:00] VITALS: O2SAT 96
[2016-09-19] MEDS: MIRTAZAPINE TAB 15 MG TAB PO SCH (20:52)
[2016-09-19] MEDS: FLUTICASONE PROPIONATE NA SPR 16 GM BTL NAE SCH (20:52)
[2016-09-19] MEDS: TAMSULOSIN HCL 0.4 MG CAP PO SCH (20:52)
[2016-09-19] MEDS: HEPARIN SOD 5000 UNIT/0.5 ML CARP SQ SCH (20:59)
--- NOTE | 2016-09-19 21:07 | Progress Note ---
Medicine Progress Note Date & Time of Visit: September 19, 2016 at ~ 14:00 . Subjective No further hypoglycemic episodes. Blood sugars now running on the high side. Feels a bit lightheaded when standing. No CP or SOB. Appetite good. No N/V. . Objective Last 8 Hrs Date Time Temp Pulse Resp B/P Pulse Ox O2 Delivery O2 Flow Rate FiO2 09/19/16 16:00 96 Room Air 09/19/16 15:43 36.3 103 20 101/57 96 Physical Exam: General- lying in bed, no distress Neck- no JVD Lungs- clear Heart- RRR Abdomen- + BS, soft, nontender Extremities- no pretibial edema or calf tenderness Neuro- alert, oriented . Laboratory Results: Last 24 Hours Test 09/19/16 02:14 09/19/16 05:19 09/19/16 07:47 09/19/16 11:20 Bedside Glucose 193 mg/dl 189 mg/dl 286 mg/dl Sodium Level 137 mmol/L Potassium Level 4.3 mmol/L Chloride Level 103 mmol/L Carbon Dioxide Level 30 mmol/L Anion Gap 4.0 mmol/L Blood Urea Nitrogen 24 mg/dl Creatinine 0.99 mg/dl Est Creatinine Clear Calc Drug Dose 34.9 ml/min Estimated GFR () 77.9 Estimated GFR (Non- 67.2 BUN/Creatinine Ratio 23.8 Random Glucose 196 mg/dl Calcium Level 7.8 mg/dl Test 09/19/16 16:50 09/19/16 20:13 Bedside Glucose 108 mg/dl 204 mg/dl Assessment & Plan DM TYPE 2 / SEVERE HYPOGLYCEMIA DM type 2, well-controlled until requiring steroid therapy for pulmonary fibrosis. Hgb A1C was 6.8 on 08/16/16. He has been taking metformin, glipizide, Lantus, and fixed-dose NovoLog with meals at home. Family reports meal preparation / intake and glucose monitoring vary. Hypoglycemic with glucose of 30 day of admission. Holding glipizide and metformin. Pharmacy consulted. Titrating Lantus & NovoLog. ALTERED MENTAL STATUS (present on admission) Confusion at time of admission probably metabolic encephalopathy secondary to hypoglycemia. Improved. DEHYDRATION IV fluids. CORONARY ARTERY DISEASE Troponin slightly elevated, but CPK normal. No anginal symptoms. Elevated troponin most like secondary to demand ischemia; acute coronary syndrome unlikely. Continue aspirin, diltiazem, atorvastatin. PAROXYSMAL ATRIAL FIB BP's running low at times. Decreased diltiazem CR to 120 mg daily. HYPERTENSION BP's running low at times. Decreased diltiazem CR to 120 mg daily. PULMONARY FIBROSIS Has improved with steroid therapy. Prednisone recently tapered to 20 mg daily. BPH Continue tamsulosin. HYPOTHYROIDISM Continue levothyroxine. VTE PROPHYLAXIS SQ heparin. Ambulate. DISPOSITION Patient and family have been considering NH placement for more support and supervision. Case Management consulted. Referral made to [facility]. Family Medicine follow-up with Dr. Hannah. Pulmonary Medicine follow-up with Dr. Bronson. . Current Inpatient Medications: Current Inpatient Medications Medications (Trade) Dose Ordered Sig/Rachel Route Start Time Stop Time Status Last Admin Dose Admin Acetaminophen (Tylenol Tab) 650 mg Q4H PRN PO 09/17/16 16:00 10/17/16 15:59 Ondansetron HCl (Zofran Inj) 4 mg Q6H PRN IV 09/17/16 16:00 10/17/16 15:59 Nitroglycerin (Nitrostat Tab) 0.4 mg UD PRN SL 09/17/16 16:00 10/17/16 15:59 Miscellaneous Information (Consult Glycemic Management Pharmacy) 1 ea UD PRN N/A 09/17/16 16:53 10/17/16 16:52 Aspirin (Ecotrin Tab) 81 mg DAILY PO 09/18/16 09:00 10/18/16 08:59 09/19/16 08:33 81 MG Atorvastatin Calcium (Lipitor Tab) 10 mg Q2D@2100 PO 09/18/16 21:00 10/18/16 20:59 09/18/16 21:12 10 MG Fluticasone Propionate (Flonase Nasal [place]) 2 sprays HS SUNIL 09/17/16 21:00 10/17/16 20:59 09/19/16 20:52 2 SPRAYS Levothyroxine Sodium (Synthroid Tab) 50 mcg DAILYBB PO 09/18/16 06:00 10/18/16 08:59 09/19/16 06:17 50 MCG Losartan Potassium (coZAAR TAB) 25 mg DAILY PO 09/18/16 09:00 10/18/16 08:59 09/19/16 08:32 25 MG Mirtazapine (Remeron Tab) 30 mg HS PO 09/17/16 21:00 10/17/16 20:59 09/19/16 20:52 30 MG Multivitamins (Multivitamin Tab) 1 tab DAILY PO 09/18/16 09:00 10/18/16 08:59 09/19/16 08:33 1 TAB Prednisone (PredniSONE TAB) 20 mg DAILY PO 09/18/16 09:00 10/18/16 08:59 09/19/16 08:34 20 MG Tamsulosin HCl (Flomax Cap) 0.4 mg QPM PO 09/17/16 21:00 10/17/16 20:59 09/19/16 20:52 0.4 MG Miscellaneous Information (Order Awaiting Action) 1 ea Q8 N/A 09/17/16 20:00 10/17/16 19:59 Miscellaneous Information (Order Awaiting Action) 1 ea QS N/A 09/17/16 20:00 10/17/16 19:59 Pantoprazole Sodium (Protonix Tab) 40 mg DAILY PO 09/18/16 09:00 10/18/16 08:59 09/19/16 08:34 40 MG Glucose (Glucose 40% Gel) 15-30 GRAMS 15 GRAMS... UD PRN PO 09/17/16 17:00 10/17/16 16:59 Glucose (Glucose Chew Tab) 4-8 Tablets 4 Tabl... UD PRN PO 09/17/16 17:00 10/17/16 16:59 Dextrose (Dextrose 50% 50ML Syringe) 25-50ML OF 50% DW IV FOR... UD PRN IV 09/17/16 17:00 10/17/16 16:59 Glucagon (Glucagon Inj) 1 mg UD PRN SQ 09/17/16 17:00 10/17/16 16:59 Insulin Glargine (Lantus Solostar Pen) SEE PROTOCOL BID SC 09/18/16 20:00 10/18/16 20:59 09/19/16 20:58 8 UNIT Diltiazem HCl (Dilacor Xr Cap) 120 mg QAM PO 09/19/16 08:00 10/19/16 07:59 09/19/16 08:33 120 MG Insulin Aspart (novoLOG ASPART) SLIDING SCALE DAILY@0630,1100 SC 09/20/16 06:30 10/20/16 06:29 Insulin Aspart (novoLOG ASPART) SLIDING SCALE DAILY@1630,2100 SC 09/19/16 16:30 10/19/16 16:29 09/19/16 20:59 1 UNITS Heparin Sodium (Porcine) 5000 unit 5,000 unit Q12 SQ 09/19/16 21:00 10/19/16 20:59 Sodium Chloride (Nss 1000ml) 1,000 ml @ 100 mls/hr Q10H IV 09/19/16 14:30 09/20/16 00:29 09/19/16 15:45 100 MLS/HR
[2016-09-19 23:55] VITALS: BP 110/64; PULSE 97; TEMP 36.3; O2SAT 95
[2016-09-20] MEDS: LEVOTHYROXINE 50 MCG TAB PO SCH (05:22)
[2016-09-20 06:23] LABS: HEMATOCRIT 31.9 % (42-52); MEAN CELL VOLUME 90.9 fL (80-100); MEAN CORPUSCULAR HEMOGLOBIN 30.2 pg (25-34); MEAN CORPUSCULAR HGB CONC 33.2 g/dl (32-36); MEAN PLATELET VOLUME 9.7 fL (7.4-10.4); PLATELET COUNT 107 K/uL (130-400); RED BLOOD COUNT 3.51 M/uL (4.7-6.1); WHITE BLOOD COUNT 5.11 K/uL (4.8-10.8)
[2016-09-20 06:50] LABS: BUN/CREATININE RATIO 20.1 (10-20); CREATININE 0.92 mg/dl (0.60-1.40); POTASSIUM 4.3 mmol/L (3.5-5.1)
[2016-09-20 07:42] VITALS: BP 118/66; PULSE 92; TEMP 36.3; O2SAT 95
[2016-09-20] MEDS: ASPIRIN 81 MG ECTAB PO SCH (07:52)
[2016-09-20] MEDS: LOSARTAN POTASSIUM 25 MG TAB PO SCH (07:52)
[2016-09-20] MEDS: DILTIAZEM HCL 120 MG ER CAP PO SCH (07:52)
[2016-09-20] MEDS: PANTOprazole SOD 40 MG TAB PO SCH (07:52)
[2016-09-20] MEDS: HEPARIN SOD 5000 UNIT/0.5 ML CARP SQ SCH (07:53)
[2016-09-20] MEDS: MULTIVITAMIN TAB PO SCH (07:53)
[2016-09-20] MEDS ORDERED: INSULIN GLARGINE SOLOSTAR 100 UNITS/ML 3 ML PEN SC SCH (08:00)
[2016-09-20] MEDS: INSULIN ASPART 100 UNITS/ML 3 ML PEN SC SCH ×2 (08:05→12:52)
--- NOTE | 2016-09-20 10:41 | Progress Note ---
Medicine Progress Note Date & Time of Visit: September 20, 2016 at 09:40 . Subjective Doing well. No further hypoglycemia. Ambulating in hallway. No chest pain or unusual dyspnea. Occasional minimal nonproductive cough. No nausea or vomiting. . Objective Last 8 Hrs Date Time Temp Pulse Resp B/P Pulse Ox O2 Delivery O2 Flow Rate FiO2 09/20/16 08:00 Room Air 09/20/16 07:42 36.3 92 16 118/66 95 Room Air Physical Exam: General- no distress Neck- no JVD Lungs- scattered rales, more prominent at right base Heart- RRR Abdomen- + BS, soft, nontender Extremities- no pretibial edema or calf tenderness Neuro- alert, oriented . Laboratory Results: Last 24 Hours Test 09/19/16 11:20 09/19/16 16:50 09/19/16 20:13 09/20/16 05:20 Bedside Glucose 286 mg/dl 108 mg/dl 204 mg/dl White Blood Count 5.11 K/uL Red Blood Count 3.51 M/uL Hemoglobin 10.6 g/dL Hematocrit 31.9 % Mean Corpuscular Volume 90.9 fL Mean Corpuscular Hemoglobin 30.2 pg Mean Corpuscular Hemoglobin Concent 33.2 g/dl RDW Standard Deviation 55.1 fL RDW Coefficient of Variation 16.5 % Platelet Count 107 K/uL Mean Platelet Volume 9.7 fL Sodium Level 138 mmol/L Potassium Level 4.3 mmol/L Chloride Level 103 mmol/L Carbon Dioxide Level 31 mmol/L Anion Gap 4.0 mmol/L Blood Urea Nitrogen 19 mg/dl Creatinine 0.92 mg/dl Est Creatinine Clear Calc Drug Dose 36.1 ml/min Estimated GFR () 85.2 Estimated GFR (Non- 73.5 BUN/Creatinine Ratio 20.1 Random Glucose 176 mg/dl Calcium Level 8.0 mg/dl Test 09/20/16 07:59 Bedside Glucose 128 mg/dl Assessment & Plan DM TYPE 2 / SEVERE HYPOGLYCEMIA DM type 2, well-controlled until requiring steroid therapy for pulmonary fibrosis. Hgb A1C was 6.8 on 08/16/16. He has been taking metformin, glipizide, Lantus, and fixed-dose NovoLog with meals at home. Family reports meal preparation / intake and glucose monitoring vary. Hypoglycemic with glucose of 30 day of admission. Holding glipizide and metformin. Pharmacy consulted. Blood sugar goals should be fairly liberal given advanced age and comorbidities. Patient being transferred to skilled care where blood sugars can be monitored and insulin adjusted. Will discontinue glipizide and metformin at time of discharge. Discharge on Lantus 6 units BID, hold for BSG < 120. NovoLog with correction factor of 25 mg / dl, no carb ratio due to NH setting, goal range roughly 140-180. Prednisone will be tapered by Pulmonary Medicine and insulin therapy will need to be adjusted accordingly. ALTERED MENTAL STATUS (present on admission) Confusion at time of admission probably metabolic encephalopathy secondary to hypoglycemia. Improved. DEHYDRATION Received IV fluids. CORONARY ARTERY DISEASE Troponin slightly elevated, but CPK normal. No anginal symptoms. Elevated troponin most like secondary to demand ischemia; acute coronary syndrome unlikely. Continue aspirin, diltiazem, atorvastatin. PAROXYSMAL ATRIAL FIB Continue diltiazem. HYPERTENSION Continue diltiazem. PULMONARY FIBROSIS Has improved with steroid therapy. Prednisone recently tapered to 20 mg daily; further tapering per Pulmonary Medicine. BPH Continue tamsulosin. HYPOTHYROIDISM TSH 0.814. Continue levothyroxine. VTE PROPHYLAXIS SQ heparin. Ambulate. DISPOSITION Patient and family have been considering NH placement for more support and supervision. Case Management consulted. Referral made to [facility] for skilled care. Family Medicine follow-up with Dr. Hannah. Pulmonary Medicine follow-up with Dr. Bronson. . Current Inpatient Medications: Current Inpatient Medications Medications (Trade) Dose Ordered Sig/Rachel Route Start Time Stop Time Status Last Admin Dose Admin Acetaminophen (Tylenol Tab) 650 mg Q4H PRN PO 09/17/16 16:00 10/17/16 15:59 Ondansetron HCl (Zofran Inj) 4 mg Q6H PRN IV 09/17/16 16:00 10/17/16 15:59 Nitroglycerin (Nitrostat Tab) 0.4 mg UD PRN SL 09/17/16 16:00 10/17/16 15:59 Miscellaneous Information (Consult Glycemic Management Pharmacy) 1 ea UD PRN N/A 09/17/16 16:53 10/17/16 16:52 Aspirin (Ecotrin Tab) 81 mg DAILY PO 09/18/16 09:00 10/18/16 08:59 09/20/16 07:52 81 MG Atorvastatin Calcium (Lipitor Tab) 10 mg Q2D@2100 PO 09/18/16 21:00 10/18/16 20:59 09/18/16 21:12 10 MG Fluticasone Propionate (Flonase Nasal [place]) 2 sprays HS SUNIL 09/17/16 21:00 10/17/16 20:59 09/19/16 20:52 2 SPRAYS Levothyroxine Sodium (Synthroid Tab) 50 mcg DAILYBB PO 09/18/16 06:00 10/18/16 08:59 09/20/16 05:22 50 MCG Losartan Potassium (coZAAR TAB) 25 mg DAILY PO 09/18/16 09:00 10/18/16 08:59 09/20/16 07:52 25 MG Mirtazapine (Remeron Tab) 30 mg HS PO 09/17/16 21:00 10/17/16 20:59 09/19/16 20:52 30 MG Multivitamins (Multivitamin Tab) 1 tab DAILY PO 09/18/16 09:00 10/18/16 08:59 09/20/16 07:53 1 TAB Prednisone (PredniSONE TAB) 20 mg DAILY PO 09/18/16 09:00 10/18/16 08:59 09/20/16 07:52 20 MG Tamsulosin HCl (Flomax Cap) 0.4 mg QPM PO 09/17/16 21:00 10/17/16 20:59 09/19/16 20:52 0.4 MG Miscellaneous Information (Order Awaiting Action) 1 ea Q8 N/A 09/17/16 20:00 10/17/16 19:59 Miscellaneous Information (Order Awaiting Action) 1 ea QS N/A 09/17/16 20:00 10/17/16 19:59 Pantoprazole Sodium (Protonix Tab) 40 mg DAILY PO 09/18/16 09:00 10/18/16 08:59 09/20/16 07:52 40 MG Glucose (Glucose 40% Gel) 15-30 GRAMS 15 GRAMS... UD PRN PO 09/17/16 17:00 10/17/16 16:59 Glucose (Glucose Chew Tab) 4-8 Tablets 4 Tabl... UD PRN PO 09/17/16 17:00 10/17/16 16:59 Dextrose (Dextrose 50% 50ML Syringe) 25-50ML OF 50% DW IV FOR... UD PRN IV 09/17/16 17:00 10/17/16 16:59 Glucagon (Glucagon Inj) 1 mg UD PRN SQ 09/17/16 17:00 10/17/16 16:59 Diltiazem HCl (Dilacor Xr Cap) 120 mg QAM PO 09/19/16 08:00 10/19/16 07:59 09/20/16 07:52 120 MG Insulin Aspart (novoLOG ASPART) SLIDING SCALE DAILY@0630,1100 SC 09/20/16 06:30 10/20/16 06:29 09/20/16 08:05 2 UNITS Insulin Aspart (novoLOG ASPART) SLIDING SCALE DAILY@1630,2100 SC 09/19/16 16:30 10/19/16 16:29 09/19/16 20:59 1 UNITS Heparin Sodium (Porcine) (Heparin Sq 5000 Unit/0.5ml) 5,000 unit Q12 SQ 09/19/16 21:00 10/19/16 20:59 Insulin Glargine (Lantus Solostar Pen) SEE PROTOCOL BID SC 09/20/16 08:00 10/20/16 07:59 09/20/16 08:03 7 UNIT
[2016-09-20] MEDS ORDERED: INSDGIPEN SC (10:50)
[2016-09-20] MEDS ORDERED: NVLGIPEN INJ (10:50)
--- NOTE | 2016-09-20 11:01 | Discharge Instructions ---
Discharge Instructions Date of Service September 20, 2016. Admission Reason for Admission: hypoglycemia Discharge Discharge Diagnosis / Problem: DM type 2 with hypoglycemia Discharge Goals Goal(s): Improve function, Improve disease control Activity Recommendations Activity Level: Up Ad [place] Therapies: Physical Therapy, Occupational Therapy Lifting Limitations: none Exercise/Sports Limitations: none Shower/Bathe: no limitations . Additional Information Patient informed of condition: Yes Advance Directives: Yes DNR: Yes Level of Care: Skilled Communicable Disease: No Prognosis: Improving Piña Catheter: No Current Hospital Diet Patient's current hospital diet: Diabetes Type 2 Diet Discharge Diet Recommended Diet: AHA Diet (Heart Healthy), Diabetes Type 2 Diet Pending Studies Studies pending at discharge: no Physician Orders On Transfer Vital Signs: routine . Weigh: routine . Additional Orders: Glucometer checks before meals and at bedtime. NovoLog scale: blood sugar units NovoLog under 141 none 141-200 2 201-225 3 226-250 4 251-275 5 276-300 6 [phone] 7 [phone] 8 above 350 10 Call provider if blood sugars consistently above 250. FOLLOW-UP APPOINTMENTS Family Medicine with Dr. Hannah if patient is discharged to home from your facility. Pulmonary Medicine with Dr. Bronson as scheduled. Thank you for receiving this patient in transfer. Please call if you have any questions. Dane Montes . Laboratory Results Hemoglobin A1c Test 08/16/16 06:38 Range/Units Estimated Average Glucose 148 mg/dl Hemoglobin A1c 6.8 H 4.5-5.6 % Medical Emergencies . Who to Call and When: Medical Emergencies: If at any time you feel your situation is an emergency, please call 911 immediately. . Non-Emergent Contact Non-Emergency issues call your: Primary Care Provider . . "Provider Documentation" section prepared by Dane Montes. . Core Measure Problem Core Measures: None
--- NOTE | 2016-09-20 11:30 | Discharge Summary ---
Discharge Summary Date of Service September 20, 2016. Discharge Summary Admission Date: September 17, 2016 at 15:57 Discharge Date: September 20, 2016 Discharge Disposition: long term facility ([facility]) Principal Diagnosis: DM type 2 with severe hypoglycemia . Secondary Diagnoses/Problems: Chronic and Resolved Medical Problems: (1) BPH (benign prostatic hypertrophy) Status: Chronic (2) CAD (coronary artery disease) Status: Chronic (3) DM type 2 (diabetes mellitus, type 2) Status: Chronic (4) Dyslipidemia Status: Chronic (5) History of depression Status: Chronic (6) HTN (hypertension) Status: Chronic (7) Paroxysmal atrial fibrillation Status: Chronic (8) Pulmonary fibrosis Status: Chronic Surgical Problems: (1) H/O inguinal hernia repair Status: Chronic . Procedures: cardiac monitoring CHEST ONE VIEW PORTABLE 09/17/16 COMPARISON STUDY: 08/13/2016 FINDINGS: Findings of stable diffuse interstitial fibrotic change. No well-defined or superimposed infiltrate. Stable chronic apical fibrotic and fibrocalcific change. No evidence for cardiac enlargement. IMPRESSION: Chronic parenchymal fibrosis. No acute or superimposed process. Electronically signed by: Bassam Diaz M.D. 09/17/2016 1:21 PM Dictated Date/Time: 09/17/2016 1:[address] SCAN OF THE BRAIN WITHOUT IV CONTRAST 09/17/16 IMPRESSION: There is no hemorrhage, mass effect, or evidence of acute territorial ischemia by CT criteria. Electronically signed by: Isaac Scott M.D. 09/17/2016 1:57 PM . . Medication Reconciliation New Medications: Insulin Aspart (Novolog Flexpen) 100 Units/Ml Inj 0 INJ ACHS for 30 Days Sliding scale as directed in discharge instructions. Insulin Glargine (Lantus Solostar) 100 Unit/Ml Inj 6 UNITS SC BID for 30 Days, PEN Twice a day in morning and at bedtime. Hold if blood sugar is less than 120. Continued Medications: Albuterol Sulfate (Proair Respiclick) 108 Mcg/Act Aer 2 PUFFS INH Q4 PRN for SOB/Wheezing Aspirin (Aspirin Ec) 81 Mg Tab 81 MG PO DAILY Atorvastatin (Lipitor) 10 Mg Tab 10 MG PO Q2D, 0 Refills Take 20 mg by mouth every other night. Diltiazem Hcl (Diltiazem Hcl) 180 Mg Capcr 180 MG PO DAILY Fluticasone Propionate (Nasal) (Flonase Allergy Relief) 50 Mcg/Act Spr 2 SPRAYS SUNIL HS Levothyroxine Sodium (Synthroid) 50 Mcg Tab 50 MCG PO QAM Losartan Potassium (Cozaar) 25 Mg Tab 1 TAB PO DAILY for 30 Days, #30 TAB 2 Refills Mirtazapine (Mirtazapine) 15 Mg Tab 30 MG PO HS Mometasone Furoate-Formoterol (Dulera 100/5 Mcg) 1 Aer Aer 2 PUFFS INH BID for 30 Days, #13 GM 2 Refills Multivitamin (Multivitamin) Tab 1 TAB PO DAILY, 0 Refills Omeprazole (Prilosec) 20 Mg Capcr 20 MG PO DAILY for 30 Days, #30 CAP 2 Refills Prednisone Tab (Prednisone) 10 Mg Tab 20 MG PO DAILY, TAB Tamsulosin Hcl (Flomax) 0.4 Mg Cap 0.4 MG PO QPM, CAP Discontinued Medications: Glipizide (Glucotrol) 5 Mg Tab 5 MG PO BID, TAB Insulin Aspart (Novolog Flexpen) 100 Units/Ml Inj 6 UNITS SC AC, #1 2 Refills Insulin Glargine (Lantus Solostar) 100 Unit/Ml Inj 8 UNITS SC BID, PEN Metformin Hcl (Glucophage Ext Rel) 1,000 Mg Tab 500 MG PO BID, TAB Admission Information HPI (per Admitting provider): This is an 89 y/o male with PMHx of insulin-dependent DM 2, Pulmonary Fibrosis on Steroids, PAF, HTN, Dyslipidemia and other problems as outlined below who presents to the ED c/o intermittent confusion for the past 3 weeks. Pt was admitted to [facility] from 08/13-08/18 with influenza A and flare of Pulmonary Fibrosis. Pt was discharged on 30mg Prednisone daily and his Lantus was increased to 8 units BID (from 6 units BID) with addition of NovoLog 6 units with meals. Since discharge, patient has been experiencing fluctuating blood glucose. Blood glucose has ranged from 30-300. He lives alone and is very overwhelmed with insulin regimen stating he often forgets if he has taken his insulin and he is unsure when to take the NovoLog because he does not eat consistent meals throughout the day. Patient reports that his "head gets fuzzy" a lot lately. This morning, patient reports his BSG was 33 when he woke up. He ate a cookie and drank some orange juice with no improvement in BSG. Pts [id number] stopped by to check on him and found him to be weak, confused, diaphoretic and cold/shaky. When EMS arrived BSG was 40. Pt received 1 amp D50 en route and BSG upon arrival to the ED was 109. Pt denies fevers, chest pain, palpitations, SOB, wheezing, abd pain, N/V, bowel or bladder issues, LE edema , calf pain, lightheadedness/dizziness. In the ED, pt is tachy. He is afebrile with no leukocytosis. HgB 12.3. TSH WNL. Trop 0.204. EKG: no acute ischemic changes. Head CT is negative. Pt is feeling much better now. He will be admitted for further evaluation and treatment. . Physical Exam (per Admitting): General Appearance: WD/WN, no apparent distress, + thin, + pertinent finding (Pt is laying in bed with son and [id number] at bedside) Head: normocephalic, atraumatic Eyes: normal inspection, PERRL, EOMI ENT: hearing grossly normal Neck: supple Respiratory/Chest: chest non-tender, lungs clear, normal breath sounds, no respiratory distress Cardiovascular: no edema, no murmur, + tachycardia Abdomen/GI: normal bowel sounds, non tender, soft Back: normal inspection Extremities/Musculoskelatal: normal inspection, no calf tenderness, no pedal edema Neurologic/Psych: 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 Hgb A1C was 6.8 on 08/16/16. He has been taking metformin, glipizide, Lantus, and fixed-dose NovoLog with meals at home. Family reports meal preparation / intake and glucose monitoring vary. Blood sugar at home fluctuating from low to 300's. Hypoglycemic with glucose of 30 day of admission. Pharmacy consulted and regimen adjusted. Blood sugar goals should be fairly liberal given advanced age and comorbidities. Patient being transferred to skilled care where blood sugars can be monitored and insulin adjusted. Glipizide and metformin discontinued. Discharge on Lantus 6 units BID, hold for BSG < 120. NovoLog with correction factor of 25 mg / dl, no carb ratio due to NH setting, goal range roughly 140-180. Prednisone will be tapered by Pulmonary Medicine and insulin therapy will need to be adjusted accordingly. ALTERED MENTAL STATUS (present on admission) Confusion at time of admission probably metabolic encephalopathy secondary to hypoglycemia. Improved. DEHYDRATION Received IV fluids. CORONARY ARTERY DISEASE Troponin slightly elevated, but CPK normal. No anginal symptoms. Elevated troponin most like secondary to demand ischemia; acute coronary syndrome unlikely. No beta boo due to pulmonary disease. Continue aspirin, diltiazem, atorvastatin. PAROXYSMAL ATRIAL FIB Currently in NSR. Continue aspirin, diltiazem. HYPERTENSION Continue diltiazem. PULMONARY FIBROSIS Has improved with steroid therapy. Prednisone recently tapered to 20 mg daily; further tapering per Pulmonary Medicine. BPH Continue tamsulosin. HYPOTHYROIDISM TSH 0.814. Continue levothyroxine. VTE PROPHYLAXIS SQ heparin. Ambulate. DISPOSITION Patient and family have been considering NH placement for more support and supervision. Case Management consulted. Referral made to [facility] for skilled care. Family Medicine follow-up with Dr. Hannah. Pulmonary Medicine follow-up with Dr. Bronson. . Total time spent on discharge = 45 min. This includes examination of the patient, discharge planning, medication reconciliation, and communication with other providers. . Discharge Instructions Date of Service September 20, 2016. Admission Reason for Admission: hypoglycemia Discharge Discharge Diagnosis / Problem: DM type 2 with hypoglycemia Discharge Goals Goal(s): Improve function, Improve disease control Activity Recommendations Activity Level: Up Ad [place] Therapies: Physical Therapy, Occupational Therapy Lifting Limitations: none Exercise/Sports Limitations: none Shower/Bathe: no limitations . Additional Information Patient informed of condition: Yes Advance Directives: Yes DNR: Yes Level of Care: Skilled Communicable Disease: No Prognosis: Improving Piña Catheter: No Current Hospital Diet Patient's current hospital diet: Diabetes Type 2 Diet Discharge Diet Recommended Diet: AHA Diet (Heart Healthy), Diabetes Type 2 Diet Pending Studies Studies pending at discharge: no Physician Orders On Transfer Vital Signs: routine . Weigh: routine . Additional Orders: Glucometer checks before meals and at bedtime. NovoLog scale: blood sugar units NovoLog under 141 none 141-200 2 201-225 3 226-250 4 251-275 5 276-300 6 [phone] 7 [phone] 8 above 350 10 Call provider if blood sugars consistently above 250. FOLLOW-UP APPOINTMENTS Family Medicine with Dr. Hannah if patient is discharged to home from your facility. Pulmonary Medicine with Dr. Bronson as scheduled. Thank you for receiving this patient in transfer. Please call if you have any questions. Dane Montes . Laboratory Results Hemoglobin A1c Test 08/16/16 06:38 Range/Units Estimated Average Glucose 148 mg/dl Hemoglobin A1c 6.8 H 4.5-5.6 % Medical Emergencies . Who to Call and When: Medical Emergencies: If at any time you feel your situation is an emergency, please call 911 immediately. . Non-Emergent Contact Non-Emergency issues call your: Primary Care Provider . . "Provider Documentation" section prepared by Dane Montes. . Core Measure Problem Core Measures: None Additional Copies To Dillon Bronson, DO; Duarte Hannah M.D.
[2016-09-20 11:55] VITALS: BP 118/66; PULSE 92; TEMP 36.3; O2SAT 95
== END 2016-09-20 14:02 | DRG 637 ==
LOC: ENRESERVDT → ENRESERVTM → EDBD 12:34 → C.EDA 12:35 → C.2T 15:57 → C.4E 09-18 14:59
PROVIDERS: ADMIT Internal Medicine; ATTEND Hospitalist
DX: E11.649 Type 2 diabetes mellitus with hypoglycemia without coma (principal); G93.41 Metabolic encephalopathy; I24.8 Other forms of acute ischemic heart disease; Z68.1 Body mass index [BMI] 19.9 or less, adult; T38.0X5A Adverse effect of glucocorticoids and synthetic analogues, initial encounter; L89.302 Pressure ulcer of unspecified buttock, stage 2; E86.0 Dehydration; R63.4 Abnormal weight loss; J84.10 Pulmonary fibrosis, unspecified; I48.0 Paroxysmal atrial fibrillation; I11.9 Hypertensive heart disease without heart failure; I25.10 Atherosclerotic heart disease of native coronary artery without angina pectoris; N40.0 Benign prostatic hyperplasia without lower urinary tract symptoms; E78.5 Hyperlipidemia, unspecified; E03.9 Hypothyroidism, unspecified; F32.9 Major depressive disorder, single episode, unspecified; Z51.81 Encounter for therapeutic drug level monitoring; Z79.899 Other long term (current) drug therapy; Z79.4 Long term (current) use of insulin; Z79.52 Long term (current) use of systemic steroids; Z79.82 Long term (current) use of aspirin; Z66 Do not resuscitate